=== PATIENT | female | born 1945 | race African-American/Black ===

== ENCOUNTER → 2017-05-19 15:48 | Outpatient (CLI) | payer MEDICARE, OTHER, SELFPAY ==
[2017-05-19 16:52] LABS: Thyroid Stim Hormone (TSH) 1.24 uIU/mL (0.358-3.74)
== END ==
PROVIDERS: Family Provider Family Medicine Geriatric Medicine; PCP Family Medicine Geriatric Medicine; Visit Provider Family Medicine Geriatric Medicine
DX: R53.83 Other fatigue (principal)
CPT/HCPCS: 36415; 84443

== ENCOUNTER → 2017-06-27 10:00 | Outpatient (CLI) | payer MEDICARE, OTHER, SELFPAY ==
--- NOTE | 2017-06-27 10:03 | VDLE_ITS ---
Reason For Study: Non-healing wound RIGHT LEFT CFV is compressible, spontaneous, phasic, CFV is compressible, spontaneous, phasic, competent and demonstrates normal competent, and demonstrates normal augmentation. augmentation. FV is compressible, spontaneous, phasic, FV is compressible, spontaneous, phasic, competent and demonstrates normal competent and demonstrates normal augmentation. augmentation. POP V is compressible, spontaneous, phasic, POP V is compressible, spontaneous, phasic, competent and demonstrates normal competent and demonstrates normal augmentation. augmentation. T/P Trunk is compressible. T/P Trunk is compressible. PTV is compressible. PTV is compressible. RT PerV is compressible. LT PerV is compressible. SFJ is competent SFJ is competent GSV is INCOMPETENT with reflux greater GSV is INCOMPETENT above knee with reflux than .5 sec and diameter of .32 x .30 cm greater than .5 sec and diameter of .32 SSV is INCOMPETENT with reflux greater x .33 cm than .5 sec and diameter of .24 x .22 cm. GSV diminutive below knee unable to assess Procedure SSV is competent. Exam performed in department. A preliminary report was called and/or faxed to [facility]. Interpretation Summary Deep veins of the lower extremities are bilaterally patent and compressible segmentally. There is no evidence of deep vein thrombosis on either side. Valvular competence appears intact within the proximal deep venous systems bilaterally. The greater saphenous veins appear bilaterally patent and compressible segmentally. Sapheno-femoral junctions are bilaterally competent . Segmental valvular incompetence is noted within the greater saphenous veins bilaterally. The left greater saphenous vein is diminutive below the knee. The right small saphenous vein is patent and incompetent. The left small saphenous vein is patent and competent. Ordering Physician: Anshul Bobo Performed By: Jeanette Pruett RVT
--- NOTE | 2017-06-28 08:37 | LEAS_ITS ---
Arterial Study - Arterial Study Arterial Study: This is a 71-year-old female with a history of hypertension. She presents with a chronic nonhealing wound of the right lower extremity. Suspecting the presence of atherosclerotic peripheral arterial occlusive disease, the patient was brought to the noninvasive vascular laboratory at this time for the purpose of bilateral noninvasive lower extremity arterial assessment. Doppler signal assessment was used to evaluate the pulses at ankle level bilaterally. The posterior tibial and dorsalis pedis pulses were triphasic bilaterally. Segmental limb pressures were obtained at ankle level bilaterally. The right ankle pressure, as determined by posterior tibial pulse, was measured at 201 mmHg. The right ankle pressure, as determined by dorsalis pedis pulse, was measured at 171 mmHg. The left ankle pressure, as determined by posterior tibial pulse, was measured at 187 mmHg. The left ankle pressure, as determined by dorsalis pedis pulse, was measured at 174 mmHg. Pulse-volume recordings were obtained bilaterally and segmentally. Waveform amplitudes appeared to be satisfactory at low thigh, calf, and ankle levels bilaterally, though diminished at digital levels bilaterally. Resting ankle-brachial indices were calculated bilaterally. The resting right ankle-brachial index was calculated to be 1.29. The resting left ankle- brachial index was calculated to be 1.20. Impression: Based upon the findings of this resting noninvasive lower extremity arterial study, there is no evidence of significant atherosclerotic peripheral arterial occlusive disease in the lower extremities bilaterally. Triphasic waveforms are noted at ankle level bilaterally. Resting ankle-brachial indices are bilaterally normal.
== END ==
PROVIDERS: Family Provider Family Medicine Geriatric Medicine; PCP Family Medicine Geriatric Medicine; Visit Provider Nurse Practitioner Family
DX: R09.89 Other specified symptoms and signs involving the circulatory and respiratory systems (principal); I87.311 Chronic venous hypertension (idiopathic) with ulcer of right lower extremity; L97.919 Non-pressure chronic ulcer of unspecified part of right lower leg with unspecified severity; R60.9 Edema, unspecified
CPT/HCPCS: 93923; 93970

== ENCOUNTER 2017-07-17 13:00 | Outpatient (RCR) | payer MEDICARE, OTHER, SELFPAY ==
[2017-06-26 13:49] VITALS: BP 173/77; PULSE 70; RESP 16; TEMP 36.5; BMI 41.1
--- NOTE | 2017-06-26 14:50 | PCM.WC.HP ---
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 Status: Acute Current Visit: Yes Code(s): L97.912 - Non-pressure chronic ulcer of unspecified part of right lower leg with fat layer exposed Comment: Right lateral ankle (2) Bilateral lower extremity edema Status: Acute Current Visit: Yes Code(s): R60.0 - Localized edema (3) Decreased pedal pulses Status: Acute Current Visit: Yes Code(s): R09.89 - Other specified symptoms and signs involving the circulatory and respiratory systems (4) Hypertension Status: Chronic Current Visit: No Qualifiers: Code(s): I10 - Essential (primary) hypertension (5) Obesity, Class II, BMI 35-39.9 Status: Chronic Current Visit: Yes Code(s): E66.9 - Obesity, unspecified History of Present Illness Date of Service: 06/26/17 Chief Complaint: Nonhealing wound right ankle History of Wound: This is a 71-year-old -[place] female with a past medical history of hypertension, palpitations, obesity who presents to the wound healing center today with complaint of a nonhealing ulcer on right lateral ankle ?2 months. The patient presented to [facility] emergency department on 05/10/2017 with complaint of cutting her right lateral ankle open after hitting it on the edge of a refrigerator door. The patient was placed on Bactrim and completed the duration of antibiotics and then follow-up with her PCP who had placed her on another antibiotic as well. Patient is unsure which antibiotic that was. The patient states that the nonhealing wound has been tender and that there is a small amount of light yellow drainage from it. She states that the main stay of treatment she has been doing so far is covering it with a Band-Aid. She has not been using any compression. She denies any signs of systemic infection specifically any redness, warmth, or increase in pain. The patient otherwise denies any fever, chills, nausea, vomiting, shortness of breath, chest pain or pressure, palpitations, orthopnea, lower extremity edema, syncope or presyncopal episodes. Past Medical History Past Medical History: Chronic Problems (Last Reviewed 04/11/17 @ 10:50 by Marino Givens MD) Edema (Chronic) Palpitations (Chronic) Nonrheumatic mitral (valve) insufficiency (Chronic) Nonrheumatic tricuspid (valve) insufficiency (Chronic) Osteoarthritis (Chronic) Hypertension (Chronic) Obesity, Class II, BMI 35-39.9 (Chronic) Surgical History: appendectomy, cholecystectomy, herniorrhaphy - 1982, rotator cuff repair - 2008 Allergies/Adverse Reactions: Allergies milk Allergy (Unknown, Unverified 05/10/17 22:12) unknown lisinopril Adverse Reaction (Intermediate, Verified 05/10/17 22:12) cough ibuprofen [From Motrin] Adverse Reaction (Mild, Verified 05/10/17 22:12) Other FEET SWELLING naproxen sodium [From Aleve] Adverse Reaction (Mild, Verified 05/10/17 22:12) Swelling SWELLS FEET UP Home Medications: Ambulatory Orders Medication Instructions Recorded Hydrochlorothiazide 25 mg PO DAILY 10/09/13 Irbesartan [Avapro] 300 mg PO DAILY 10/09/13 Cyanocobalamin [Vitamin B12] 1,000 mcg IM QWEEK 06/23/14 Furosemide [Lasix] 40 mg PO QODAY 06/23/14 Acetaminophen [Tylenol Tablet] 650 mg PO Q4H PRN PRN #0 tablet 07/19/14 Aspirin [Aspirin EC] 81 mg PO DAILY 04/16/16 cholecalciferol (vitamin D3) 5,000 5,000 unit PO QDAY 04/10/17 unit capsule dexlansoprazole 30 mg 30 mg PO QDAY 04/10/17 capsule,biphase delayed release linaclotide 145 mcg capsule 145 mcg PO PRN PRN 04/10/17 magnesium oxide,aspartate,citrate 400 mg PO QDAY ea 04/10/17 400 mg capsule potassium chloride ER 8 mEq 8 meq PO BID 04/10/17 tablet,extended release atorvastatin 10 mg tablet 10 mg PO DAILY #90 tab 04/11/17 vitamin E mixed 1,000 unit capsule 1,000 unit PO .OD ea 04/11/17 Hydrochlorothiazide [Hctz] 25 mg PO DAILY 06/26/17 - Family History Paternal Family History: Family History (Last Reviewed 04/11/17 @ 10:50 by Marino Givens MD) Mother Cancer Hypertension No pertinent history Maternal Family History: Family History (Last Reviewed 04/11/17 @ 10:50 by Marino Givens MD) Mother Cancer Hypertension No pertinent history Lives: Spouse/ Significant Other Smoking Status: Never smoker Tobacco Use: Non-smoker Alcohol: None Review of Systems Constitutional: Denies: Chills, Fever, Weight Change Eyes: Denies: Pain, Vision Change HEENT: Denies: Difficulty Hearing, Difficulty Swallowing, Sinus Congestion Cardiovascular: Denies: Chest Pain, Palpitations Respiratory: Denies: Cough, Shortness of Breath Gastrointestinal: Denies: Diarrhea, Nausea, Vomiting Genitourinary: Denies: Dysuria, Hematuria Skin: Reports: Wounds - See HPI, wound right lower extremity Endocrine: Denies: Heat/ Cold Intolerance, Polydipsia, Polyuria Hematologic/ Lymphatic: Denies: Easy Bruising, Easy Bleeding - Physical Exam Vital Signs Temp Pulse Resp BP 97.7 F L 70 16 173/77 H 06/26/17 13:49 06/26/17 13:49 06/26/17 13:49 06/26/17 13:49 General: Alert, Oriented x3, Cooperative, No apparent distress HEENT: PERRLA, EOMI Oral: Moist Mucosa Neck: Supple, No JVD, Negative Carotid Bruits Lungs: Clear to auscultation Cardiovascular: Regular rate, Regular Rhythm Abdomen: Soft, Non Tender Extremities: No clubbing, No cyanosis, Diminished Peripheral Pulses, Edema - Bilateral lower extremity edema +1 nonpitting, Tenderness - Tenderness around lower extremity ulcer Skin: Ulcer/ Wound - Nonhealing lower extremity ulcer present right lateral ankle, covered with moderate amount of slough and devitalized tissue. Wound Measurements and Assessment WC - Nurse 1 - General Ulcer Measurement Start: 06/26/17 13:48 Freq: Status: Active Protocol: Activity Type Activity Date Activity User E-Sign Co-Sign Detail Recorded Client Recorded Date Recorded By Document 06/26/17 13:49 MW [id number] 06/26/17 13:58 MW 06/26/17 13:49 Wound Center Nurse 1 [Ulcer Assessment] #1 RIGHT LATERAL LE -Combined with other wound No -Current Size (cm) - Length 0.2 -Current Size (cm) - Width 0.2 -Current Size (cm) - Depth 0.1 -Total Square Cm 0.04 -Date of Last Picture (Recall this 06/26/17 field) -Photo Taken Yes -Epithelialization None Present -Tunneling No -Undermining/Tunneling No -Circular Undermining No -Exudate Amt None Present (0 %) -Wound Margin Flat & Intact -Granulation Amt Small (1-33%) -Granulation Quality Pale -Slough/Fibrin Yes -Necrosis Amt Medium (34-66%) -Necrotic Tissue Type Adherent Slough -Structure Exposed N/A -Texture (Gladys-wound Skin Appearance) Assessed Localized Edema -Moisture (Gladys-wound Skin Appearance Assessed ) Dry/Scaly -Color (Gladys-wound Skin Appearance) Assessed Hemosiderin Staining -Temperature (Gladys-wound Skin No Abnormality Appearance) (Pt Warm) -Tenderness on Palpation (Gladys-wound Yes Skin Appearance) -Ulcer Cleansing Rinsed/ Irrigated with Saline -Foul Odor after Cleansing No -Anesthetic Used 4% Lidocaine Solution [Edema Assessment] -Lower Limb Edema Present Yes -Right Calf (cm) 39.5 -Right Ankle (cm) 21.4 -Left Calf (cm) 38.0 -Left Ankle (cm) 20.7 WC - Nurse 2 - General Ulcer CM Notes Start: 06/26/17 13:48 Freq: Status: Active Protocol: Activity Type Activity Date Activity User E-Sign Co-Sign Detail Recorded Client Recorded Date Recorded By Document 06/26/17 14:56 DV [id number] 06/26/17 15:02 DV 06/26/17 14:56 Wound Center Nurse 2 [Procedure/Treatment] #1 RIGHT LATERAL LE -Time 15:00 -Correct Patient Yes -Correct Side, Site, Position Yes -Correct Procedure Yes -Procedure Performed Yes -Type of Procedure Debridement -Clinical Debridement Subcutaneous -Post Debridement Size (cm) - Length 0.5 -Post Debridement Size (cm) - Width 1.1 -Post Debridement Size (cm) - Depth 0.3 -Total Square Cm 0.55 -Wound/Ulcer Outcome Not Healed -Ulcer Cleansing Rinsed/ Irrigated with Saline -Foul Odor after Cleansing No -Bioengineered Tissue No -Bleeding Controlled with Pressure -Treatment Response Procedure Tolerated Well [See Physician Procedure note for Specifics] Pain Scale: 0-10 Numeric [Pain] -Is Patient Pain Free? Yes Musculoskeletal: No Tenderness to Palpation of Joints or Extremities Lymphatic: No Cervical, Supraclavicular, or Inguinal Adenopathy Neurological: Cranial nerves II-XII grossly intact Psych/Mental Status: Normal Affect, Appropriate, Alert and oriented to time, place, person, mood and affect Debridement Note Post-Debridement Measurements/Treatment WC - Nurse 2 - General Ulcer CM Notes Start: 06/26/17 13:48 Freq: Status: Active Protocol: Activity Type Activity Date Activity User E-Sign Co-Sign Detail Recorded Client Recorded Date Recorded By Document 06/26/17 14:56 DV [id number] 06/26/17 15:02 DV 06/26/17 14:56 Wound Center Nurse 2 #1 RIGHT LATERAL LE -Time 15:00 -Correct Patient Yes -Correct Side, Site, Position Yes -Correct Procedure Yes -Procedure Performed Yes -Type of Procedure Debridement -Clinical Debridement Subcutaneous -Post Debridement Size (cm) - Length 0.5 -Post Debridement Size (cm) - Width 1.1 -Post Debridement Size (cm) - Depth 0.3 -Total Square Cm 0.55 -Wound/Ulcer Outcome Not Healed -Ulcer Cleansing Rinsed/ Irrigated with Saline -Foul Odor after Cleansing No -Bioengineered Tissue No -Bleeding Controlled with Pressure -Treatment Response Procedure Tolerated Well Pain Scale: 0-10 Numeric Is Patient Pain Free? Yes Wound debrided: Right lower extremity lateral ankle ulcer Laterality: Right Anesthesia Used: 5% Lidocaine Gel Depth: Down to and including healthy tissue, in the subcutaneous layer Percentage of wound debrided: 100 Instrument Used: 3mm curette Tissue Removed: Slough and devitalized tissue Severity: Fat Layer Exposed Amount of bleeding with debridement: None Patient did not tolerate procedure well Patient was unable to tolerate an effective debridement today due to her pain level and tenderness around the site Assessment/Plan Active Problems (Last Reviewed 04/11/17 @ 10:50 by Marino Givens MD) Bilateral lower extremity edema (Acute) 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 (Acute) Right lateral ankle Decreased pedal pulses (Acute) Obesity, Class II, BMI 35-39.9 (Chronic) Assessment: Nonhealing ulcer right lateral ankle Plan: The patient was seen and examined at the wound center today and was updated on the plan of care. A subcutaneous debridement was performed today. The patient tolerated the procedure fair. The patients wound care will consist of: Applying Santyl daily and covering with gauze, Tubigrip for light compression. Wound cultures were collected. Baseline bloodwork ordered. Vascular studies ordered. Patient educated on the importance of diet on wound healing and instructed to increase protein and vitamin C intake. Patient verbalized understanding. Patient will follow up at wound healing center in one week or sooner if needed. Patient was specifically educated on signs of systemic infection and cellulitis and instructed to seek emergent medical attention if this occurs. This note was generated with [employer] dictation software. It may contain incorrect words, spelling, and punctuation that were not noted in checking the note before signing. 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 The patient states that it is elevated due to being anxious about today's office visit. Code Visit Office Visits / Consults: [id number] OV L4 Est [id number]: [id number] Alethea subq tissue 20 sq cm/<
[2017-06-26 18:07] LABS: Absolute Lymphocyte Count 1.81 X10^3/ul (0.83-4.51); Absolute Neutrophil Count 2.8 X10^3/uL (2.0-7.7); Basophil# 0.03 X10^3/uL; Basophil% 0.6 % (0-1); Eosinophil# 0.13 X10^3/uL; Eosinophils% 2.5 % (0-5); Hematocrit 40.3 % (37-47); Hemoglobin 12.9 g/dl (12.0-15.0); Lymphocyte # 1.81 X10^3/ul (4.0); Lymphocyte % 35.3 % (19-41); Mean Corpuscular Hgb 29.6 pg (27.0-32.0); Mean Corpuscular Volume 92.4 fL (81-99); Mean Platelet Vol. 10.7 fl (6.2-12.0); Monocyte# 0.38 X10^3/uL; Monocyte% 7.4 % (0-10); Neutrophil # 2.78 X10^3/uL (2.7-7.7); Neutrophil % 54.2 % (47-70); Platelet Count 197 K/mm3 (150-450); RBC Distribution Width CV 14.9 % (11.6-14.6); RBC Distribution Width SD 50.8 fl (35.1-43.9); Red Blood Count 4.36 M/mm3 (4.2-5.4); White Blood Count 5.1 K/mm3 (4.4-11.0)
[2017-06-26 18:08] LABS: POSITIVE COUNT NO; POSITIVE DIFFERENTIAL NO; POSITIVE MORPHOLOGY NO
[2017-06-26 18:20] LABS: Erythrocyte Sedimentation Rate 45 mm/hr (0-30)
[2017-06-26 18:33] LABS: ALB/GLOB Ratio 0.8 RATIO (0.9-2.4); AST(SGOT) 20 U/L (15-37); Alanine Aminotransfer ALT/SGPT 34 U/L (13-56); Albumin, Serum 3.6 g/dL (3.2-5.0); Alkaline Phosphatase 89 U/L (45-117); Anion Gap 8 (5-15); BUN 16 mg/dL (7-18); Calcium,Total 9.5 mg/dL (8.5-10.1); Chloride 106 mmol/L (98-107); Creatinine, Serum 0.94 mg/dL (0.55-1.02); EST Glomerular Filtration Rate 62 mL/min (>60); Est Glom Filt Rate - Afr Amer 75 mL/min (>60); Estimated Creatinine Clearance 43.42 ml/min; Globulin 4.3 g/dL (2.2-4.2); Glucose 63 mg/dL (74-106); Potassium 3.6 mmol/L (3.5-5.1); Prealbumin 28.9 mg/dL (20.0-40.0); Protein, Total 7.9 g/dL (6.4-8.2); Sodium Level 143 mmol/L (136-145)
--- NOTE | 2017-06-27 15:00 | HP.PCM_ITS ---
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 Status: Acute Current Visit: Yes Code(s): L97.912 - Non-pressure chronic ulcer of unspecified part of right lower leg with fat layer exposed Comment: Right lateral ankle (2) Bilateral lower extremity edema Status: Acute Current Visit: Yes Code(s): R60.0 - Localized edema (3) Decreased pedal pulses Status: Acute Current Visit: Yes Code(s): R09.89 - Other specified symptoms and signs involving the circulatory and respiratory systems (4) Hypertension Status: Chronic Current Visit: No Qualifiers: Code(s): I10 - Essential (primary) hypertension (5) Obesity, Class II, BMI 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 The patient presented to [facility] emergency department on 05/10/2017 with complaint of cutting her right lateral ankle open after hitting it on the edge of a refrigerator door. The patient was placed on Bactrim and completed the duration of antibiotics and then follow- up with her PCP who had placed her on another antibiotic as well. Patient is unsure which antibiotic that was. The patient states that the nonhealing wound has been tender and that there is a small amount of light yellow drainage from it. She states that the main stay of treatment she has been doing so far is covering it with a Band-Aid. She has not been using any compression. She denies any signs of systemic infection specifically any redness, warmth, or increase in pain. The patient otherwise denies any fever, chills, nausea, vomiting, shortness of breath, chest pain or pressure, palpitations, orthopnea, lower extremity edema, syncope or presyncopal episodes. Past Medical History Past Medical History: Chronic Problems (Last Reviewed 04/11/17 @ 10:50 by Marino Givens MD) Edema (Chronic) Palpitations (Chronic) Nonrheumatic mitral (valve) insufficiency (Chronic) Nonrheumatic tricuspid (valve) insufficiency (Chronic) Osteoarthritis (Chronic) Hypertension (Chronic) Obesity, Class II, BMI 35-39.9 (Chronic) Surgical History: appendectomy, cholecystectomy, herniorrhaphy - 1982, rotator cuff repair - 2008 Allergies/Adverse Reactions: Allergies milk Allergy (Unknown, Unverified 05/10/17 22:12) unknown lisinopril Adverse Reaction (Intermediate, Verified 05/10/17 22:12) cough ibuprofen [From Motrin] Adverse Reaction (Mild, Verified 05/10/17 22:12) Other FEET SWELLING naproxen sodium [From Aleve] Adverse Reaction (Mild, Verified 05/10/17 22:12) Swelling SWELLS FEET UP Home Medications: Ambulatory Orders Medication Instructions Recorded Hydrochlorothiazide 25 mg PO DAILY 10/09/13 Irbesartan [Avapro] 300 mg PO DAILY 10/09/13 Cyanocobalamin [Vitamin B12] 1,000 mcg IM QWEEK 06/23/14 Furosemide [Lasix] 40 mg PO QODAY 06/23/14 Acetaminophen [Tylenol Tablet] 650 mg PO Q4H PRN PRN #0 tablet 07/19/14 Aspirin [Aspirin EC] 81 mg PO DAILY 04/16/16 cholecalciferol (vitamin D3) 5,000 5,000 unit PO QDAY 04/10/17 unit capsule dexlansoprazole 30 mg 30 mg PO QDAY 04/10/17 capsule,biphase delayed release linaclotide 145 mcg capsule 145 mcg PO PRN PRN 04/10/17 magnesium oxide,aspartate,citrate 400 mg PO QDAY ea 04/10/17 400 mg capsule potassium chloride ER 8 mEq 8 meq PO BID 04/10/17 tablet,extended release atorvastatin 10 mg tablet 10 mg PO DAILY #90 tab 04/11/17 vitamin E mixed 1,000 unit capsule 1,000 unit PO .OD ea 04/11/17 Hydrochlorothiazide [Hctz] 25 mg PO DAILY 06/26/17 - Family History Paternal Family History: Family History (Last Reviewed 04/11/17 @ 10:50 by Marino Givens MD) Mother Cancer Hypertension No pertinent history Maternal Family History: Family History (Last Reviewed 04/11/17 @ 10:50 by Marino Givens MD) Mother Cancer Hypertension No pertinent history Lives: Spouse/ Significant Other Smoking Status: Never smoker Tobacco Use: Non-smoker Alcohol: None Review of Systems Constitutional: Denies: Chills, Fever, Weight Change Eyes: Denies: Pain, Vision Change HEENT: Denies: Difficulty Hearing, Difficulty Swallowing, Sinus Congestion Cardiovascular: Denies: Chest Pain, Palpitations Respiratory: Denies: Cough, Shortness of Breath Gastrointestinal: Denies: Diarrhea, Nausea, Vomiting Genitourinary: Denies: Dysuria, Hematuria Skin: Reports: Wounds - See HPI, wound right lower extremity Endocrine: Denies: Heat/ Cold Intolerance, Polydipsia, Polyuria Hematologic/ Lymphatic: Denies: Easy Bruising, Easy Bleeding - Physical Exam Vital Signs Temp Pulse Resp BP 97.7 F L 70 16 173/77 H 06/26/17 13:49 06/26/17 13:49 06/26/17 13:49 06/26/17 13:49 General: Alert, Oriented x3, Cooperative, No apparent distress HEENT: PERRLA, EOMI Oral: Moist Mucosa Neck: Supple, No JVD, Negative Carotid Bruits Lungs: Clear to auscultation Cardiovascular: Regular rate, Regular Rhythm Abdomen: Soft, Non Tender Extremities: No clubbing, No cyanosis, Diminished Peripheral Pulses, Edema - Bilateral lower extremity edema +1 nonpitting, Tenderness - Tenderness around lower extremity ulcer Skin: Ulcer/ Wound - Nonhealing lower extremity ulcer present right lateral ankle, covered with moderate amount of slough and devitalized tissue. Wound Measurements and Assessment WC - Nurse 1 - General Ulcer Measurement Start: 06/26/17 13:48 Freq: Status: Active Protocol: Activity Type Activity Date Activity User E-Sign Co-Sign Detail Recorded Client Recorded Date Recorded By Document 06/26/17 13:49 MW [id number] 06/26/17 13:58 MW 06/26/17 13:49 Wound Center Nurse 1 [Ulcer Assessment] #1 RIGHT LATERAL LE -Combined with other wound No -Current Size (cm) - Length 0.2 -Current Size (cm) - Width 0.2 -Current Size (cm) - Depth 0.1 -Total Square Cm 0.04 -Date of Last Picture (Recall this 06/26/17 field) -Photo Taken Yes -Epithelialization None Present -Tunneling No -Undermining/Tunneling No -Circular Undermining No -Exudate Amt None Present (0 %) -Wound Margin Flat & Intact -Granulation Amt Small (1-33%) -Granulation Quality Pale -Slough/Fibrin Yes -Necrosis Amt Medium (34-66%) -Necrotic Tissue Type Adherent Slough -Structure Exposed N/A -Texture (Gladys-wound Skin Appearance) Assessed Localized Edema -Moisture (Gladys-wound Skin Appearance Assessed ) Dry/Scaly -Color (Gladys-wound Skin Appearance) Assessed Hemosiderin Staining -Temperature (Gladys-wound Skin No Abnormality Appearance) (Pt Warm) -Tenderness on Palpation (Gladys-wound Yes Skin Appearance) -Ulcer Cleansing Rinsed/ Irrigated with Saline -Foul Odor after Cleansing No -Anesthetic Used 4% Lidocaine Solution [Edema Assessment] -Lower Limb Edema Present Yes -Right Calf (cm) 39.5 -Right Ankle (cm) 21.4 -Left Calf (cm) 38.0 -Left Ankle (cm) 20.7 WC - Nurse 2 - General Ulcer CM Notes Start: 06/26/17 13:48 Freq: Status: Active Protocol: Activity Type Activity Date Activity User E-Sign Co-Sign Detail Recorded Client Recorded Date Recorded By Document 06/26/17 14:56 DV [id number] 06/26/17 15:02 DV 06/26/17 14:56 Wound Center Nurse 2 [Procedure/Treatment] #1 RIGHT LATERAL LE -Time 15:00 -Correct Patient Yes -Correct Side, Site, Position Yes -Correct Procedure Yes -Procedure Performed Yes -Type of Procedure Debridement -Clinical Debridement Subcutaneous -Post Debridement Size (cm) - Length 0.5 -Post Debridement Size (cm) - Width 1.1 -Post Debridement Size (cm) - Depth 0.3 -Total Square Cm 0.55 -Wound/Ulcer Outcome Not Healed -Ulcer Cleansing Rinsed/ Irrigated with Saline -Foul Odor after Cleansing No -Bioengineered Tissue No -Bleeding Controlled with Pressure -Treatment Response Procedure Tolerated Well [See Physician Procedure note for Specifics] Pain Scale: 0-10 Numeric [Pain] -Is Patient Pain Free? Yes Musculoskeletal: No Tenderness to Palpation of Joints or Extremities Lymphatic: No Cervical, Supraclavicular, or Inguinal Adenopathy Neurological: Cranial nerves II-XII grossly intact Psych/Mental Status: Normal Affect, Appropriate, Alert and oriented to time, place, person, mood and affect Debridement Note Post-Debridement Measurements/Treatment WC - Nurse 2 - General Ulcer CM Notes Start: 06/26/17 13:48 Freq: Status: Active Protocol: Activity Type Activity Date Activity User E-Sign Co-Sign Detail Recorded Client Recorded Date Recorded By Document 06/26/17 14:56 DV [id number] 06/26/17 15:02 DV 06/26/17 14:56 Wound Center Nurse 2 #1 RIGHT LATERAL LE -Time 15:00 -Correct Patient Yes -Correct Side, Site, Position Yes -Correct Procedure Yes -Procedure Performed Yes -Type of Procedure Debridement -Clinical Debridement Subcutaneous -Post Debridement Size (cm) - Length 0.5 -Post Debridement Size (cm) - Width 1.1 -Post Debridement Size (cm) - Depth 0.3 -Total Square Cm 0.55 -Wound/Ulcer Outcome Not Healed -Ulcer Cleansing Rinsed/ Irrigated with Saline -Foul Odor after Cleansing No -Bioengineered Tissue No -Bleeding Controlled with Pressure -Treatment Response Procedure Tolerated Well Pain Scale: 0-10 Numeric Is Patient Pain Free? Yes Wound debrided: Right lower extremity lateral ankle ulcer Laterality: Right Anesthesia Used: 5% Lidocaine Gel Depth: Down to and including healthy tissue, in the subcutaneous layer Percentage of wound debrided: 100 Instrument Used: 3mm curette Tissue Removed: Slough and devitalized tissue Severity: Fat Layer Exposed Amount of bleeding with debridement: None Patient did not tolerate procedure well Patient was unable to tolerate an effective debridement today due to her pain level and tenderness around the site Assessment/Plan Active Problems (Last Reviewed 04/11/17 @ 10:50 by Marino Givens MD) Bilateral lower extremity edema (Acute) 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 (Acute) Right lateral ankle Decreased pedal pulses (Acute) Obesity, Class II, BMI 35-39.9 (Chronic) Assessment: Nonhealing ulcer right lateral ankle Plan: The patient was seen and examined at the wound center today and was updated on the plan of care. A subcutaneous debridement was performed today. The patient tolerated the procedure fair. The patients wound care will consist of: Applying Santyl daily and covering with gauze, Tubigrip for light compression. Wound cultures were collected. Baseline bloodwork ordered. Vascular studies ordered. Patient educated on the importance of diet on wound healing and instructed to increase protein and vitamin C intake. Patient verbalized understanding. Patient will follow up at wound healing center in one week or sooner if needed. Patient was specifically educated on signs of systemic infection and cellulitis and instructed to seek emergent medical attention if this occurs. This note was generated with [employer] dictation software. It may contain incorrect words, spelling, and punctuation that were not noted in checking the note before signing. The patient's blood pressure was significantly elevated in the office, instructed to follow-up with her liberal arts dean or PCP to manage this. The patient states that it is elevated due to being anxious about today's office visit. Code Visit Office Visits / Consults: 33134 OV L4 Est 111xxx-113xx: [id number] Alethea subq tissue 20 sq cm/<
[2017-07-03 13:57] VITALS: BP 119/93; PULSE 75; RESP 16; TEMP 37; BMI 41.1
--- NOTE | 2017-07-03 17:13 | PCM.WC.PN ---
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 Status: Acute Code(s): L97.912 - Non-pressure chronic ulcer of unspecified part of right lower leg with fat layer exposed Comment: Right lateral ankle (2) Bilateral lower extremity edema Status: Acute Code(s): R60.0 - Localized edema (3) Decreased pedal pulses Status: Acute Code(s): R09.89 - Other specified symptoms and signs involving the circulatory and respiratory systems (4) Hypertension Status: Chronic Qualifiers: Code(s): I10 - Essential (primary) hypertension (5) Obesity, Class II, BMI 35-39.9 Status: Chronic Code(s): E66.9 - Obesity, unspecified Type of Wound Date of Service: 07/03/17 Chief Complaint: Nonhealing wound right ankle History of Wound: This is a 71-year-old -Surinames[place] female with a past medical history of hypertension, palpitations, obesity who presents to the wound healing center today with complaint of a nonhealing ulcer on right lateral ankle ?2 months. The patient presented to [facility] emergency department on 05/10/2017 with complaint of cutting her right lateral ankle open after hitting it on the edge of a refrigerator door. The patient was placed on Bactrim and completed the duration of antibiotics and then follow-up with her PCP who had placed her on another antibiotic as well. Patient is unsure which antibiotic that was. The patient states that the nonhealing wound has been tender and that there is a small amount of light yellow drainage from it. She states that the main stay of treatment she has been doing so far is covering it with a Band-Aid. She has not been using any compression. She denies any signs of systemic infection specifically any redness, warmth, or increase in pain. The patient otherwise denies any fever, chills, nausea, vomiting, shortness of breath, chest pain or pressure, palpitations, orthopnea, lower extremity edema, syncope or presyncopal episodes. Progress of Wound: Wound stable and improving, no signs of systemic infection such as increasing pain, drainage, redness, or increase in edema - Physical Exam Vital Signs Temp Pulse Resp BP 98.6 F 75 16 119/93 H 07/03/17 13:57 07/03/17 13:57 07/03/17 13:57 07/03/17 13:57 General: Alert, Oriented x3, Cooperative, No apparent distress HEENT: Atraumatic Cardiovascular: Regular rate Extremities: Diminished Peripheral Pulses, Edema - Generalized lower extremity edema Skin: Ulcer/ Wound - Ulcer present right lateral lower extremity lateral ankle with small amount of slough present, periwound bed slightly inflamed Neurological: Neuro grossly intact Psych/Mental Status: Normal Affect, Appropriate, Alert and oriented to time, place, person, mood and affect Debridement Note Post-Debridement Measurements/Treatment WC - Nurse 2 - General Ulcer CM Notes Start: 06/26/17 13:48 Freq: Status: Active Protocol: Activity Type Activity Date Activity User E-Sign Co-Sign Detail Recorded Client Recorded Date Recorded By Document 06/26/17 14:56 DV [id number] 06/26/17 15:02 DV Document 07/03/17 14:40 DV [id number] 07/03/17 14:45 DV 06/26/17 07/03/17 14:56 14:40 Wound Center Nurse 2 #1 RIGHT LATERAL LE -Time 15:00 14:40 -Correct Patient Yes Yes -Correct Side, Site, Position Yes Yes -Correct Procedure Yes Yes -Procedure Performed Yes Yes -Type of Procedure Debridement Debridement -Clinical Debridement Subcutaneous Subcutaneous -Post Debridement Size (cm) - Length 0.5 0.5 -Post Debridement Size (cm) - Width 1.1 1.2 -Post Debridement Size (cm) - Depth 0.3 0.3 -Total Square Cm 0.55 0.60 -Wound/Ulcer Outcome Not Healed Not Healed -Ulcer Cleansing Rinsed/ Rinsed/ Irrigated with Irrigated with Saline Saline -Foul Odor after Cleansing No No -Bioengineered Tissue No No -Bleeding Controlled with Pressure Pressure -Treatment Response Procedure Procedure Tolerated Well Tolerated Well Pain Scale: 0-10 Numeric Is Patient Pain Free? Yes Yes Wound debrided: Right lateral lower extremity Laterality: Right Type of Debridement: Excisional debridement Anesthesia Used: 4% Lidocaine Solution Depth: in the subcutaneous layer Percentage of wound debrided: 100 Instrument Used: 3mm curette Tissue Removed: Slough and fibrous tissue Severity: Fat Layer Exposed Amount of bleeding with debridement: Mild Bleeding Controlled with: Pressure Patient tolerated procedure well Assessment/Plan Assessment: Nonhealing ulcer right lateral ankle Plan: The patient was seen and examined at the wound center today and was updated on the plan of care. A subcutaneous debridement was performed today. The patient tolerated the procedure well. The patients wound care will consist of: Applying hydrogel and Saray daily and covering with gauze, Tubigrip for light compression. Wound cultures were collected previously and demonstrated rare Pseudomonas and 1+ E. coli, Cipro 500 mg twice daily for 10 days was ordered as both were sensitive to this, patient educated on how and when to take medication and potential side effects. Baseline bloodwork reviewed with patient and was within normal limits. Vascular studies demonstrated right EMILI 1.29 and left EMILI 1.20 and venous insufficiency as well. Patient educated on the importance of diet on wound healing and instructed to increase protein and vitamin C intake. Patient verbalized understanding. Patient will follow up at wound healing center in one week or sooner if needed. Patient was specifically educated on signs of systemic infection and cellulitis and instructed to seek emergent medical attention if this occurs. This note was generated with [employer] dictation software. It may contain incorrect words, spelling, and punctuation that were not noted in checking the note before signing. The patient's blood pressure was significantly elevated in the office, instructed to follow-up with her senior ui web developer or PCP to manage this. The patient states that it is elevated due to being anxious about today's office visit. Code Visit 111xxx-113xx: 29506 Alethea subq tissue 20 sq cm/<
--- NOTE | 2017-07-08 12:23 | PN.PCM_ITS ---
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 Status: Acute Code(s): L97.912 - Non-pressure chronic ulcer of unspecified part of right lower leg with fat layer exposed Comment: Right lateral ankle (2) Bilateral lower extremity edema Status: Acute Code(s): R60.0 - Localized edema (3) Decreased pedal pulses Status: Acute Code(s): R09.89 - Other specified symptoms and signs involving the circulatory and respiratory systems (4) Hypertension Status: Chronic Qualifiers: Code(s): I10 - Essential (primary) hypertension (5) Obesity, Class II, BMI 35-39.9 Status: Chronic Code(s): E66.9 - Obesity, unspecified Type of Wound Date of Service: 07/03/17 Chief Complaint: Nonhealing wound right ankle History of Wound: This is a 71-year-old -[place] female with a past medical history of hypertension, palpitations, obesity who presents to the wound healing center today with complaint of a nonhealing ulcer on right lateral ankle ?2 months. The patient presented to [facility] emergency department on 05/10/2017 with complaint of cutting her right lateral ankle open after hitting it on the edge of a refrigerator door. The patient was placed on Bactrim and completed the duration of antibiotics and then follow- up with her PCP who had placed her on another antibiotic as well. Patient is unsure which antibiotic that was. The patient states that the nonhealing wound has been tender and that there is a small amount of light yellow drainage from it. She states that the main stay of treatment she has been doing so far is covering it with a Band-Aid. She has not been using any compression. She denies any signs of systemic infection specifically any redness, warmth, or increase in pain. The patient otherwise denies any fever, chills, nausea, vomiting, shortness of breath, chest pain or pressure, palpitations, orthopnea, lower extremity edema, syncope or presyncopal episodes. Progress of Wound: Wound stable and improving, no signs of systemic infection such as increasing pain, drainage, redness, or increase in edema - Physical Exam Vital Signs Temp Pulse Resp BP 98.6 F 75 16 119/93 H 07/03/17 13:57 07/03/17 13:57 07/03/17 13:57 07/03/17 13:57 General: Alert, Oriented x3, Cooperative, No apparent distress HEENT: Atraumatic Cardiovascular: Regular rate Extremities: Diminished Peripheral Pulses, Edema - Generalized lower extremity edema Skin: Ulcer/ Wound - Ulcer present right lateral lower extremity lateral ankle with small amount of slough present, periwound bed slightly inflamed Neurological: Neuro grossly intact Psych/Mental Status: Normal Affect, Appropriate, Alert and oriented to time, place, person, mood and affect Debridement Note Post-Debridement Measurements/Treatment WC - Nurse 2 - General Ulcer CM Notes Start: 06/26/17 13:48 Freq: Status: Active Protocol: Activity Type Activity Date Activity User E-Sign Co-Sign Detail Recorded Client Recorded Date Recorded By Document 06/26/17 14:56 DV [id number] 06/26/17 15:02 DV Document 07/03/17 14:40 DV [id number] 07/03/17 14:45 DV 06/26/17 07/03/17 14:56 14:40 Wound Center Nurse 2 #1 RIGHT LATERAL LE -Time 15:00 14:40 -Correct Patient Yes Yes -Correct Side, Site, Position Yes Yes -Correct Procedure Yes Yes -Procedure Performed Yes Yes -Type of Procedure Debridement Debridement -Clinical Debridement Subcutaneous Subcutaneous -Post Debridement Size (cm) - Length 0.5 0.5 -Post Debridement Size (cm) - Width 1.1 1.2 -Post Debridement Size (cm) - Depth 0.3 0.3 -Total Square Cm 0.55 0.60 -Wound/Ulcer Outcome Not Healed Not Healed -Ulcer Cleansing Rinsed/ Rinsed/ Irrigated with Irrigated with Saline Saline -Foul Odor after Cleansing No No -Bioengineered Tissue No No -Bleeding Controlled with Pressure Pressure -Treatment Response Procedure Procedure Tolerated Well Tolerated Well Pain Scale: 0-10 Numeric Is Patient Pain Free? Yes Yes Wound debrided: Right lateral lower extremity Laterality: Right Type of Debridement: Excisional debridement Anesthesia Used: 4% Lidocaine Solution Depth: in the subcutaneous layer Percentage of wound debrided: 100 Instrument Used: 3mm curette Tissue Removed: Slough and fibrous tissue Severity: Fat Layer Exposed Amount of bleeding with debridement: Mild Bleeding Controlled with: Pressure Patient tolerated procedure well Assessment/Plan Assessment: Nonhealing ulcer right lateral ankle Plan: The patient was seen and examined at the wound center today and was updated on the plan of care. A subcutaneous debridement was performed today. The patient tolerated the procedure well. The patients wound care will consist of: Applying hydrogel and Saray daily and covering with gauze, Tubigrip for light compression. Wound cultures were collected previously and demonstrated rare Pseudomonas and 1+ E. coli, Cipro 500 mg twice daily for 10 days was ordered as both were sensitive to this, patient educated on how and when to take medication and potential side effects. Baseline bloodwork reviewed with patient and was within normal limits. Vascular studies demonstrated right EMILI 1.29 and left EMILI 1.20 and venous insufficiency as well. Patient educated on the importance of diet on wound healing and instructed to increase protein and vitamin C intake. Patient verbalized understanding. Patient will follow up at wound healing center in one week or sooner if needed. Patient was specifically educated on signs of systemic infection and cellulitis and instructed to seek emergent medical attention if this occurs. This note was generated with [employer] dictation software. It may contain incorrect words, spelling, and punctuation that were not noted in checking the note before signing. The patient's blood pressure was significantly elevated in the office, instructed to follow-up with her small animal caretaker or PCP to manage this. The patient states that it is elevated due to being anxious about today's office visit. Code Visit 111xxx-113xx: [id number] Alethea subq tissue 20 sq cm/<
[2017-07-10 13:14] VITALS: BP 167/70; PULSE 79; RESP 20; TEMP 36.6; BMI 41.1
--- NOTE | 2017-07-10 18:35 | PCM.WC.PN ---
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 Status: Acute Current Visit: Yes Code(s): L97.912 - Non-pressure chronic ulcer of unspecified part of right lower leg with fat layer exposed Comment: Right lateral ankle (2) Bilateral lower extremity edema Status: Acute Current Visit: Yes Code(s): R60.0 - Localized edema (3) Decreased pedal pulses Status: Acute Current Visit: Yes Code(s): R09.89 - Other specified symptoms and signs involving the circulatory and respiratory systems (4) Hypertension Status: Chronic Current Visit: No Qualifiers: Code(s): I10 - Essential (primary) hypertension (5) Obesity, Class II, BMI 35-39.9 Status: Chronic Current Visit: No Code(s): E66.9 - Obesity, unspecified Type of Wound Date of Service: 07/10/17 Chief Complaint: Nonhealing wound right ankle History of Wound: This is a 71-year-old -[place] female with a past medical history of hypertension, palpitations, obesity who presents to the wound healing center today with complaint of a nonhealing ulcer on right lateral ankle ?2 months. The patient presented to [facility] emergency department on 05/10/2017 with complaint of cutting her right lateral ankle open after hitting it on the edge of a refrigerator door. The patient was placed on Bactrim and completed the duration of antibiotics and then follow-up with her PCP who had placed her on another antibiotic as well. Patient is unsure which antibiotic that was. The patient states that the nonhealing wound has been tender and that there is a small amount of light yellow drainage from it. She states that the main stay of treatment she has been doing so far is covering it with a Band-Aid. She has not been using any compression. She denies any signs of systemic infection specifically any redness, warmth, or increase in pain. The patient otherwise denies any fever, chills, nausea, vomiting, shortness of breath, chest pain or pressure, palpitations, orthopnea, lower extremity edema, syncope or presyncopal episodes. Progress of Wound: Wound stable and improving, no signs of systemic infection such as increasing pain, drainage, redness, or increase in edema - Physical Exam Vital Signs Temp Pulse Resp BP 97.8 F 79 20 H 167/70 H 07/10/17 13:14 03/22/18 13:14 07/10/17 13:14 07/10/17 13:14 General: Alert, Oriented x3, Cooperative, No apparent distress HEENT: Atraumatic Cardiovascular: Regular rate Extremities: No clubbing, No cyanosis, Diminished Peripheral Pulses, Edema - Generalized bilateral lower extremity edema Skin: Ulcer/ Wound - Ulceration present right lower extremity lateral ankle, no redness or foul-smelling discharge noted, slough present adhering to the periwound bed edges, due to patient's low pain threshold unable to perform a effective debridement Wound Measurements and Assessment WC - Nurse 1 - General Ulcer Measurement Start: 06/26/17 13:48 Freq: Status: Active Protocol: Activity Type Activity Date Activity User E-Sign Co-Sign Detail Recorded Client Recorded Date Recorded By Document 07/10/17 13:14 DL [id number] 07/10/17 13:19 DL 07/10/17 13:14 Wound Center Nurse 1 [Ulcer Assessment] #1 RIGHT LATERAL LE -Current Size (cm) - Length 0.3 -Current Size (cm) - Width 0.4 -Current Size (cm) - Depth 0.2 -Total Square Cm 0.12 -Photo Taken No -Exudate Amt None Present (0 %) -Exudate Type Serosanguineous -Wound Margin Distinct, Outline Attached -Granulation Amt Small (1-33%) -Granulation Quality Red -Necrosis Amt Small (1-33%) -Necrotic Tissue Type Adherent Slough -Texture (Gladys-wound Skin Appearance) Scarring -Moisture (Gladys-wound Skin Appearance No Abnormality ) -Color (Gladys-wound Skin Appearance) Hemosiderin Staining -Temperature (Gladys-wound Skin No Abnormality Appearance) (Pt Warm) -Tenderness on Palpation (Gladys-wound Yes Skin Appearance) -Ulcer Cleansing Rinsed/ Irrigated with Saline -Foul Odor after Cleansing No -Anesthetic Used 4% Lidocaine Solution [Edema Assessment] -Right Calf (cm) 39.3 -Right Ankle (cm) 20.9 WC - Nurse 2 - General Ulcer CM Notes Start: 06/26/17 13:48 Freq: Status: Active Protocol: Activity Type Activity Date Activity User E-Sign Co-Sign Detail Recorded Client Recorded Date Recorded By Document 07/10/17 13:43 DV [id number] 07/10/17 13:47 DV 07/10/17 13:43 Wound Center Nurse 2 [Procedure/Treatment] #1 RIGHT LATERAL LE -Time 13:43 -Correct Patient Yes -Correct Side, Site, Position Yes -Correct Procedure Yes -Procedure Performed Yes -Type of Procedure Debridement -Clinical Debridement Subcutaneous -Post Debridement Size (cm) - Length 0.4 -Post Debridement Size (cm) - Width 0.5 -Post Debridement Size (cm) - Depth 0.3 -Total Square Cm 0.20 -Wound/Ulcer Outcome Not Healed -Ulcer Cleansing Rinsed/ Irrigated with Saline -Foul Odor after Cleansing No -Bioengineered Tissue No -Bleeding Controlled with Pressure -Treatment Response Procedure Not Tolerated Well [See Physician Procedure note for Specifics] Pain Scale: 0-10 Numeric [Pain] -Is Patient Pain Free? No [Location] right ankle -Description Sharp Burning -Intensity 8 Query Text:If >3, intervention needed -Radiation Location up leg -Duration (hours) Acute -Pain Behavior Moaning Guarding Rubbing Site -Pain Aggravating Factors ADL's -Alleviating Factors/Interventions Medication -Effectiveness of Alleviating Factor/ Moderately Intervention effective Neurological: Neuro grossly intact Psych/Mental Status: Normal Affect, Alert and oriented to time, place, person, mood and affect Debridement Note Post-Debridement Measurements/Treatment WC - Nurse 2 - General Ulcer CM Notes Start: 06/26/17 13:48 Freq: Status: Active Protocol: Activity Type Activity Date Activity User E-Sign Co-Sign Detail Recorded Client Recorded Date Recorded By Document 06/26/17 14:56 DV [id number] 06/26/17 15:02 DV Document 07/03/17 14:40 DV [id number] 07/03/17 14:45 DV Document 07/10/17 13:43 DV [id number] 07/10/17 13:47 DV 06/26/17 07/03/17 07/10/17 14:56 14:40 13:43 Wound Center Nurse 2 #1 RIGHT LATERAL LE -Time 15:00 14:40 13:43 -Correct Patient Yes Yes Yes -Correct Side, Site, Position Yes Yes Yes -Correct Procedure Yes Yes Yes -Procedure Performed Yes Yes Yes -Type of Procedure Debridement Debridement Debridement -Clinical Debridement Subcutaneous Subcutaneous Subcutaneous -Post Debridement Size (cm) - Length 0.5 0.5 0.4 -Post Debridement Size (cm) - Width 1.1 1.2 0.5 -Post Debridement Size (cm) - Depth 0.3 0.3 0.3 -Total Square Cm 0.55 0.60 0.20 -Wound/Ulcer Outcome Not Healed Not Healed Not Healed -Ulcer Cleansing Rinsed/ Rinsed/ Rinsed/ Irrigated with Irrigated with Irrigated with Saline Saline Saline -Foul Odor after Cleansing No No No -Bioengineered Tissue No No No -Bleeding Controlled with Pressure Pressure Pressure -Treatment Response Procedure Procedure Procedure Not Tolerated Well Tolerated Well Tolerated Well Pain Scale: 0-10 Numeric Is Patient Pain Free? Yes Yes No right ankle -Description Sharp Burning -Intensity 8 Query Text:If >3, intervention needed -Radiation Location up leg -Duration (hours) Acute -Pain Behavior Moaning Guarding Rubbing Site -Pain Aggravating Factors ADL's -Alleviating Factors/Interventions Medication -Effectiveness of Alleviating Factor/ Moderately Intervention effective Wound debrided: Right lower extremity lateral ankle ulcer Laterality: Right Type of Debridement: Excisional debridement Anesthesia Used: 5% Lidocaine Gel Depth: in the subcutaneous layer Percentage of wound debrided: 100 Instrument Used: 3mm curette Tissue Removed: Slough Severity: Limited To Skin Breakdown Amount of bleeding with debridement: Mild Bleeding Controlled with: Pressure Patient tolerated procedure well Assessment/Plan Active Problems (Last Reviewed 04/11/17 @ 10:50 by Marino Givens MD) Bilateral lower extremity edema (Acute) 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 (Acute) Right lateral ankle Decreased pedal pulses (Acute) Assessment: Nonhealing ulcer right lateral ankle Plan: The patient was seen and examined at the wound center today and was updated on the plan of care. A subcutaneous debridement was performed today. The patient tolerated the procedure well. Due to the patient's low pain threshold and inability to tolerate aggressive debridements, the patients wound care will consist of: Applying Santyl daily and covering with gauze, previously prescribed MUSTAPHA hose for compression. Wound cultures were collected previously and demonstrated rare Pseudomonas and 1+ E. coli, Cipro 500 mg twice daily for 10 days was ordered as both were sensitive to this, patient educated on how and when to take medication and potential side effects. Patient started the antibiotic late due to being concerned about the potential side effects, however talked with the pharmacist and has since been tolerating the antibiotic. Reinforced importance of completing the entire course of antibiotics. Baseline bloodwork reviewed with patient and was within normal limits. Vascular studies demonstrated right EMILI 1.29 and left EMILI 1.20 and venous insufficiency as well. Patient educated on the importance of diet on wound healing and instructed to increase protein and vitamin C intake. Patient verbalized understanding. Patient will follow up at wound healing center in one week or sooner if needed. Patient was specifically educated on signs of systemic infection and cellulitis and instructed to seek emergent medical attention if this occurs. This note was generated with [employer] dictation software. It may contain incorrect words, spelling, and punctuation that were not noted in checking the note before signing. Code Visit 111xxx-113xx: [id number] Alethea subq tissue 20 sq cm/<
--- NOTE | 2017-07-13 10:41 | PN.PCM_ITS ---
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 Status: Acute Current Visit: Yes Code(s): L97.912 - Non-pressure chronic ulcer of unspecified part of right lower leg with fat layer exposed Comment: Right lateral ankle (2) Bilateral lower extremity edema Status: Acute Current Visit: Yes Code(s): R60.0 - Localized edema (3) Decreased pedal pulses Status: Acute Current Visit: Yes Code(s): R09.89 - Other specified symptoms and signs involving the circulatory and respiratory systems (4) Hypertension Status: Chronic Current Visit: No Qualifiers: Code(s): I10 - Essential (primary) hypertension (5) Obesity, Class II, BMI 35-39.9 Status: Chronic Current Visit: No Code(s): E66.9 - Obesity, unspecified Type of Wound Date of Service: 07/10/17 Chief Complaint: Nonhealing wound right ankle History of Wound: This is a 71-year-old -[place] female with a past medical history of hypertension, palpitations, obesity who presents to the wound healing center today with complaint of a nonhealing ulcer on right lateral ankle ?2 months. The patient presented to [facility] emergency department on 05/10/2017 with complaint of cutting her right lateral ankle open after hitting it on the edge of a refrigerator door. The patient was placed on Bactrim and completed the duration of antibiotics and then follow- up with her PCP who had placed her on another antibiotic as well. Patient is unsure which antibiotic that was. The patient states that the nonhealing wound has been tender and that there is a small amount of light yellow drainage from it. She states that the main stay of treatment she has been doing so far is covering it with a Band-Aid. She has not been using any compression. She denies any signs of systemic infection specifically any redness, warmth, or increase in pain. The patient otherwise denies any fever, chills, nausea, vomiting, shortness of breath, chest pain or pressure, palpitations, orthopnea, lower extremity edema, syncope or presyncopal episodes. Progress of Wound: Wound stable and improving, no signs of systemic infection such as increasing pain, drainage, redness, or increase in edema - Physical Exam Vital Signs Temp Pulse Resp BP 97.8 F 79 20 H 167/70 H 07/10/17 13:14 03/22/18 13:14 07/10/17 13:14 07/10/17 13:14 General: Alert, Oriented x3, Cooperative, No apparent distress HEENT: Atraumatic Cardiovascular: Regular rate Extremities: No clubbing, No cyanosis, Diminished Peripheral Pulses, Edema - Generalized bilateral lower extremity edema Skin: Ulcer/ Wound - Ulceration present right lower extremity lateral ankle, no redness or foul-smelling discharge noted, slough present adhering to the periwound bed edges, due to patient's low pain threshold unable to perform a effective debridement Wound Measurements and Assessment WC - Nurse 1 - General Ulcer Measurement Start: 06/26/17 13:48 Freq: Status: Active Protocol: Activity Type Activity Date Activity User E-Sign Co-Sign Detail Recorded Client Recorded Date Recorded By Document 07/10/17 13:14 DL [id number] 07/10/17 13:19 DL 07/10/17 13:14 Wound Center Nurse 1 [Ulcer Assessment] #1 RIGHT LATERAL LE -Current Size (cm) - Length 0.3 -Current Size (cm) - Width 0.4 -Current Size (cm) - Depth 0.2 -Total Square Cm 0.12 -Photo Taken No -Exudate Amt None Present (0 %) -Exudate Type Serosanguineous -Wound Margin Distinct, Outline Attached -Granulation Amt Small (1-33%) -Granulation Quality Red -Necrosis Amt Small (1-33%) -Necrotic Tissue Type Adherent Slough -Texture (Gladys-wound Skin Appearance) Scarring -Moisture (Gladys-wound Skin Appearance No Abnormality ) -Color (Gladys-wound Skin Appearance) Hemosiderin Staining -Temperature (Gladys-wound Skin No Abnormality Appearance) (Pt Warm) -Tenderness on Palpation (Gladys-wound Yes Skin Appearance) -Ulcer Cleansing Rinsed/ Irrigated with Saline -Foul Odor after Cleansing No -Anesthetic Used 4% Lidocaine Solution [Edema Assessment] -Right Calf (cm) 39.3 -Right Ankle (cm) 20.9 WC - Nurse 2 - General Ulcer CM Notes Start: 06/26/17 13:48 Freq: Status: Active Protocol: Activity Type Activity Date Activity User E-Sign Co-Sign Detail Recorded Client Recorded Date Recorded By Document 07/10/17 13:43 DV [id number] 07/10/17 13:47 DV 07/10/17 13:43 Wound Center Nurse 2 [Procedure/Treatment] #1 RIGHT LATERAL LE -Time 13:43 -Correct Patient Yes -Correct Side, Site, Position Yes -Correct Procedure Yes -Procedure Performed Yes -Type of Procedure Debridement -Clinical Debridement Subcutaneous -Post Debridement Size (cm) - Length 0.4 -Post Debridement Size (cm) - Width 0.5 -Post Debridement Size (cm) - Depth 0.3 -Total Square Cm 0.20 -Wound/Ulcer Outcome Not Healed -Ulcer Cleansing Rinsed/ Irrigated with Saline -Foul Odor after Cleansing No -Bioengineered Tissue No -Bleeding Controlled with Pressure -Treatment Response Procedure Not Tolerated Well [See Physician Procedure note for Specifics] Pain Scale: 0-10 Numeric [Pain] -Is Patient Pain Free? No [Location] right ankle -Description Sharp Burning -Intensity 8 Query Text:If >3, intervention needed -Radiation Location up leg -Duration (hours) Acute -Pain Behavior Moaning Guarding Rubbing Site -Pain Aggravating Factors ADL's -Alleviating Factors/Interventions Medication -Effectiveness of Alleviating Factor/ Moderately Intervention effective Neurological: Neuro grossly intact Psych/Mental Status: Normal Affect, Alert and oriented to time, place, person, mood and affect Debridement Note Post-Debridement Measurements/Treatment WC - Nurse 2 - General Ulcer CM Notes Start: 06/26/17 13:48 Freq: Status: Active Protocol: Activity Type Activity Date Activity User E-Sign Co-Sign Detail Recorded Client Recorded Date Recorded By Document 06/26/17 14:56 DV [id number] 06/26/17 15:02 DV Document 07/03/17 14:40 DV [id number] 07/03/17 14:45 DV Document 07/10/17 13:43 DV [id number] 07/10/17 13:47 DV 06/26/17 07/03/17 07/10/17 14:56 14:40 13:43 Wound Center Nurse 2 #1 RIGHT LATERAL LE -Time 15:00 14:40 13:43 -Correct Patient Yes Yes Yes -Correct Side, Site, Position Yes Yes Yes -Correct Procedure Yes Yes Yes -Procedure Performed Yes Yes Yes -Type of Procedure Debridement Debridement Debridement -Clinical Debridement Subcutaneous Subcutaneous Subcutaneous -Post Debridement Size (cm) - Length 0.5 0.5 0.4 -Post Debridement Size (cm) - Width 1.1 1.2 0.5 -Post Debridement Size (cm) - Depth 0.3 0.3 0.3 -Total Square Cm 0.55 0.60 0.20 -Wound/Ulcer Outcome Not Healed Not Healed Not Healed -Ulcer Cleansing Rinsed/ Rinsed/ Rinsed/ Irrigated with Irrigated with Irrigated with Saline Saline Saline -Foul Odor after Cleansing No No No -Bioengineered Tissue No No No -Bleeding Controlled with Pressure Pressure Pressure -Treatment Response Procedure Procedure Procedure Not Tolerated Well Tolerated Well Tolerated Well Pain Scale: 0-10 Numeric Is Patient Pain Free? Yes Yes No right ankle -Description Sharp Burning -Intensity 8 Query Text:If >3, intervention needed -Radiation Location up leg -Duration (hours) Acute -Pain Behavior Moaning Guarding Rubbing Site -Pain Aggravating Factors ADL's -Alleviating Factors/Interventions Medication -Effectiveness of Alleviating Factor/ Moderately Intervention effective Wound debrided: Right lower extremity lateral ankle ulcer Laterality: Right Type of Debridement: Excisional debridement Anesthesia Used: 5% Lidocaine Gel Depth: in the subcutaneous layer Percentage of wound debrided: 100 Instrument Used: 3mm curette Tissue Removed: Slough Severity: Limited To Skin Breakdown Amount of bleeding with debridement: Mild Bleeding Controlled with: Pressure Patient tolerated procedure well Assessment/Plan Active Problems (Last Reviewed 04/11/17 @ 10:50 by Marino Givens MD) Bilateral lower extremity edema (Acute) 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 (Acute) Right lateral ankle Decreased pedal pulses (Acute) Assessment: Nonhealing ulcer right lateral ankle Plan: The patient was seen and examined at the wound center today and was updated on the plan of care. A subcutaneous debridement was performed today. The patient tolerated the procedure well. Due to the patient's low pain threshold and inability to tolerate aggressive debridements, the patients wound care will consist of: Applying Santyl daily and covering with gauze, previously prescribed MUSTAPHA hose for compression. Wound cultures were collected previously and demonstrated rare Pseudomonas and 1+ E. coli, Cipro 500 mg twice daily for 10 days was ordered as both were sensitive to this, patient educated on how and when to take medication and potential side effects. Patient started the antibiotic late due to being concerned about the potential side effects, however talked with the pharmacist and has since been tolerating the antibiotic. Reinforced importance of completing the entire course of antibiotics. Baseline bloodwork reviewed with patient and was within normal limits. Vascular studies demonstrated right EMILI 1.29 and left EMILI 1.20 and venous insufficiency as well. Patient educated on the importance of diet on wound healing and instructed to increase protein and vitamin C intake. Patient verbalized understanding. Patient will follow up at wound healing center in one week or sooner if needed. Patient was specifically educated on signs of systemic infection and cellulitis and instructed to seek emergent medical attention if this occurs. This note was generated with [employer] dictation software. It may contain incorrect words, spelling, and punctuation that were not noted in checking the note before signing. Code Visit 111xxx-113xx: [id number] Alethea subq tissue 20 sq cm/<
[2017-07-17 13:06] VITALS: BP 164/69; PULSE 72; RESP 18; TEMP 36.3; BMI 41.1
--- NOTE | 2017-07-17 17:56 | PCM.WC.PN ---
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 Status: Acute Current Visit: Yes Code(s): L97.912 - Non-pressure chronic ulcer of unspecified part of right lower leg with fat layer exposed Comment: Right lateral ankle (2) Bilateral lower extremity edema Status: Acute Current Visit: Yes Code(s): R60.0 - Localized edema (3) Decreased pedal pulses Status: Acute Current Visit: Yes Code(s): R09.89 - Other specified symptoms and signs involving the circulatory and respiratory systems (4) Hypertension Status: Chronic Current Visit: No Qualifiers: Code(s): I10 - Essential (primary) hypertension (5) Obesity, Class II, BMI 35-39.9 Status: Chronic Current Visit: No Code(s): E66.9 - Obesity, unspecified Type of Wound Date of Service: 07/17/17 Chief Complaint: Nonhealing wound right ankle History of Wound: This is a 71-year-old -[place] female with a past medical history of hypertension, palpitations, obesity who presents to the wound healing center today with complaint of a nonhealing ulcer on right lateral ankle ?2 months. The patient presented to [facility] emergency department on 05/10/2017 with complaint of cutting her right lateral ankle open after hitting it on the edge of a refrigerator door. The patient was placed on Bactrim and completed the duration of antibiotics and then follow-up with her PCP who had placed her on another antibiotic as well. Patient is unsure which antibiotic that was. The patient states that the nonhealing wound has been tender and that there is a small amount of light yellow drainage from it. She states that the main stay of treatment she has been doing so far is covering it with a Band-Aid. She has not been using any compression. She denies any signs of systemic infection specifically any redness, warmth, or increase in pain. The patient otherwise denies any fever, chills, nausea, vomiting, shortness of breath, chest pain or pressure, palpitations, orthopnea, lower extremity edema, syncope or presyncopal episodes. Progress of Wound: Wound stable and improving, no signs of systemic infection such as increasing pain, drainage, redness, or increase in edema - Physical Exam Vital Signs Temp Pulse Resp BP 97.4 F L 72 18 164/69 H 07/17/17 13:06 07/17/17 13:06 07/17/17 13:06 07/17/17 13:06 General: Alert, Oriented x3, Cooperative, No apparent distress HEENT: Atraumatic Lungs: Clear to auscultation Cardiovascular: Regular rate Extremities: Diminished Peripheral Pulses, Edema - Generalized bilateral lower extremity Skin: Ulcer/ Wound - Ulceration present right lower extremity lateral ankle, slough present, no signs of infection at this time Wound Measurements and Assessment WC - Nurse 1 - General Ulcer Measurement Start: 06/26/17 13:48 Freq: Status: Active Protocol: Activity Type Activity Date Activity User E-Sign Co-Sign Detail Recorded Client Recorded Date Recorded By Document 07/17/17 13:06 DL [id number] 07/17/17 13:12 DL 07/17/17 13:06 Wound Center Nurse 1 [Ulcer Assessment] #1 RIGHT LATERAL LE -Current Size (cm) - Length 0.2 -Current Size (cm) - Width 0.3 -Current Size (cm) - Depth 0.1 -Total Square Cm 0.06 -Photo Taken No -Exudate Amt None Present (0 %) -Wound Margin Flat & Intact -Granulation Amt None Present (0 %) -Necrosis Amt Small (1-33%) -Necrotic Tissue Type Adherent Slough -Structure Exposed N/A -Texture (Gladys-wound Skin Appearance) Scarring -Moisture (Gladys-wound Skin Appearance No Abnormality ) -Color (Gladys-wound Skin Appearance) No Abnormality -Temperature (Gladys-wound Skin No Abnormality Appearance) (Pt Warm) -Ulcer Cleansing Rinsed/ Irrigated with Saline -Foul Odor after Cleansing No -Anesthetic Used 4% Lidocaine Solution [Edema Assessment] -Right Calf (cm) 39.6 -Right Ankle (cm) 20.7 WC - Nurse 2 - General Ulcer CM Notes Start: 06/26/17 13:48 Freq: Status: Active Protocol: Activity Type Activity Date Activity User E-Sign Co-Sign Detail Recorded Client Recorded Date Recorded By Document 07/17/17 13:29 DV [id number] 07/17/17 13:34 DV 07/17/17 13:29 Wound Center Nurse 2 [Procedure/Treatment] #1 RIGHT LATERAL LE -Time 13:30 -Correct Patient Yes -Correct Side, Site, Position Yes -Correct Procedure Yes -Procedure Performed Yes -Type of Procedure Debridement -Clinical Debridement Subcutaneous -Post Debridement Size (cm) - Length 0.4 -Post Debridement Size (cm) - Width 0.5 -Post Debridement Size (cm) - Depth 0.2 -Total Square Cm 0.20 -Wound/Ulcer Outcome Not Healed -Ulcer Cleansing Rinsed/ Irrigated with Saline -Foul Odor after Cleansing No -Bioengineered Tissue No -Bleeding Controlled with Pressure -Treatment Response Procedure Tolerated Well [See Physician Procedure note for Specifics] Pain Scale: 0-10 Numeric [Pain] -Is Patient Pain Free? Yes Neurological: Neuro grossly intact Psych/Mental Status: Normal Affect, Alert and oriented to time, place, person, mood and affect Debridement Note Post-Debridement Measurements/Treatment WC - Nurse 2 - General Ulcer CM Notes Start: 06/26/17 13:48 Freq: Status: Active Protocol: Activity Type Activity Date Activity User E-Sign Co-Sign Detail Recorded Client Recorded Date Recorded By Document 06/26/17 14:56 DV [id number] 06/26/17 15:02 DV Document 07/03/17 14:40 DV [id number] 07/03/17 14:45 DV Document 07/10/17 13:43 DV [id number] 07/10/17 13:47 DV Document 07/17/17 13:29 DV [id number] 07/17/17 13:34 DV 06/26/17 07/03/17 07/10/17 14:56 14:40 13:43 Wound Center Nurse 2 #1 RIGHT LATERAL LE -Time 15:00 14:40 13:43 -Correct Patient Yes Yes Yes -Correct Side, Site, Position Yes Yes Yes -Correct Procedure Yes Yes Yes -Procedure Performed Yes Yes Yes -Type of Procedure Debridement Debridement Debridement -Clinical Debridement Subcutaneous Subcutaneous Subcutaneous -Post Debridement Size (cm) - Length 0.5 0.5 0.4 -Post Debridement Size (cm) - Width 1.1 1.2 0.5 -Post Debridement Size (cm) - Depth 0.3 0.3 0.3 -Total Square Cm 0.55 0.60 0.20 -Wound/Ulcer Outcome Not Healed Not Healed Not Healed -Ulcer Cleansing Rinsed/ Rinsed/ Rinsed/ Irrigated with Irrigated with Irrigated with Saline Saline Saline -Foul Odor after Cleansing No No No -Bioengineered Tissue No No No -Bleeding Controlled with Pressure Pressure Pressure -Treatment Response Procedure Procedure Procedure Not Tolerated Well Tolerated Well Tolerated Well Pain Scale: 0-10 Numeric Is Patient Pain Free? Yes Yes No right ankle -Description Sharp Burning -Intensity 8 -Radiation Location up leg -Duration (hours) Acute -Pain Behavior Moaning Guarding Rubbing Site -Pain Aggravating Factors ADL's -Alleviating Factors/Interventions Medication -Effectiveness of Alleviating Factor/ Moderately Intervention effective 07/17/17 13:29 Wound Center Nurse 2 #1 RIGHT LATERAL LE -Time 13:30 -Correct Patient Yes -Correct Side, Site, Position Yes -Correct Procedure Yes -Procedure Performed Yes -Type of Procedure Debridement -Clinical Debridement Subcutaneous -Post Debridement Size (cm) - Length 0.4 -Post Debridement Size (cm) - Width 0.5 -Post Debridement Size (cm) - Depth 0.2 -Total Square Cm 0.20 -Wound/Ulcer Outcome Not Healed -Ulcer Cleansing Rinsed/ Irrigated with Saline -Foul Odor after Cleansing No -Bioengineered Tissue No -Bleeding Controlled with Pressure -Treatment Response Procedure Tolerated Well Pain Scale: 0-10 Numeric Is Patient Pain Free? Yes right ankle -Description -Intensity -Radiation Location -Duration (hours) -Pain Behavior -Pain Aggravating Factors -Alleviating Factors/Interventions -Effectiveness of Alleviating Factor/ Intervention Wound debrided: Right lower extremity ulceration right lateral ankle Laterality: Right Type of Debridement: Excisional debridement Anesthesia Used: 4% Lidocaine Solution, 5% Lidocaine Gel Depth: in the subcutaneous layer Percentage of wound debrided: 100 Instrument Used: 3mm curette Tissue Removed: Slough and bioburden Severity: Fat Layer Exposed Amount of bleeding with debridement: Mild Bleeding Controlled with: Pressure Patient tolerated procedure well Assessment/Plan Active Problems (Last Reviewed 04/11/17 @ 10:50 by Marino Givens MD) Bilateral lower extremity edema (Acute) 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 (Acute) Right lateral ankle Decreased pedal pulses (Acute) Assessment: Nonhealing ulcer right lateral ankle Plan: The patient was seen and examined at the wound center today and was updated on the plan of care. A subcutaneous debridement was performed today. The patient tolerated the procedure well. The patients wound care will consist of: The application of moistened Saray and a double layer 3M wrap for compression. Wound cultures were collected previously and demonstrated rare Pseudomonas and 1+ E. coli, Cipro 500 mg twice daily for 10 days was completed. Baseline bloodwork reviewed with patient and was within normal limits. Vascular studies demonstrated right EMILI 1.29 and left EMILI 1.20 and venous insufficiency as well. Patient educated on the importance of diet on wound healing and instructed to increase protein and vitamin C intake. Patient verbalized understanding. Patient will follow up at wound healing center in one week or sooner if needed. Patient was specifically educated on signs of systemic infection and cellulitis and instructed to seek emergent medical attention if this occurs. This note was generated with [employer] dictation software. It may contain incorrect words, spelling, and punctuation that were not noted in checking the note before signing. Code Visit 111xxx-113xx: [id number] Alethea subq tissue 20 sq cm/<
--- NOTE | 2017-07-19 12:01 | PN.PCM_ITS ---
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 Status: Acute Current Visit: Yes Code(s): L97.912 - Non-pressure chronic ulcer of unspecified part of right lower leg with fat layer exposed Comment: Right lateral ankle (2) Bilateral lower extremity edema Status: Acute Current Visit: Yes Code(s): R60.0 - Localized edema (3) Decreased pedal pulses Status: Acute Current Visit: Yes Code(s): R09.89 - Other specified symptoms and signs involving the circulatory and respiratory systems (4) Hypertension Status: Chronic Current Visit: No Qualifiers: Code(s): I10 - Essential (primary) hypertension (5) Obesity, Class II, BMI 35-39.9 Status: Chronic Current Visit: No Code(s): E66.9 - Obesity, unspecified Type of Wound Date of Service: 07/17/17 Chief Complaint: Nonhealing wound right ankle History of Wound: This is a 71-year-old -[place] female with a past medical history of hypertension, palpitations, obesity who presents to the wound healing center today with complaint of a nonhealing ulcer on right lateral ankle ?2 months. The patient presented to [facility] emergency department on 05/10/2017 with complaint of cutting her right lateral ankle open after hitting it on the edge of a refrigerator door. The patient was placed on Bactrim and completed the duration of antibiotics and then follow- up with her PCP who had placed her on another antibiotic as well. Patient is unsure which antibiotic that was. The patient states that the nonhealing wound has been tender and that there is a small amount of light yellow drainage from it. She states that the main stay of treatment she has been doing so far is covering it with a Band-Aid. She has not been using any compression. She denies any signs of systemic infection specifically any redness, warmth, or increase in pain. The patient otherwise denies any fever, chills, nausea, vomiting, shortness of breath, chest pain or pressure, palpitations, orthopnea, lower extremity edema, syncope or presyncopal episodes. Progress of Wound: Wound stable and improving, no signs of systemic infection such as increasing pain, drainage, redness, or increase in edema - Physical Exam Vital Signs Temp Pulse Resp BP 97.4 F L 72 18 164/69 H 07/17/17 13:06 07/17/17 13:06 07/17/17 13:06 07/17/17 13:06 General: Alert, Oriented x3, Cooperative, No apparent distress HEENT: Atraumatic Lungs: Clear to auscultation Cardiovascular: Regular rate Extremities: Diminished Peripheral Pulses, Edema - Generalized bilateral lower extremity Skin: Ulcer/ Wound - Ulceration present right lower extremity lateral ankle, slough present, no signs of infection at this time Wound Measurements and Assessment WC - Nurse 1 - General Ulcer Measurement Start: 06/26/17 13:48 Freq: Status: Active Protocol: Activity Type Activity Date Activity User E-Sign Co-Sign Detail Recorded Client Recorded Date Recorded By Document 07/17/17 13:06 DL [id number] 07/17/17 13:12 DL 07/17/17 13:06 Wound Center Nurse 1 [Ulcer Assessment] #1 RIGHT LATERAL LE -Current Size (cm) - Length 0.2 -Current Size (cm) - Width 0.3 -Current Size (cm) - Depth 0.1 -Total Square Cm 0.06 -Photo Taken No -Exudate Amt None Present (0 %) -Wound Margin Flat & Intact -Granulation Amt None Present (0 %) -Necrosis Amt Small (1-33%) -Necrotic Tissue Type Adherent Slough -Structure Exposed N/A -Texture (Gladys-wound Skin Appearance) Scarring -Moisture (Gladys-wound Skin Appearance No Abnormality ) -Color (Gladys-wound Skin Appearance) No Abnormality -Temperature (Gladys-wound Skin No Abnormality Appearance) (Pt Warm) -Ulcer Cleansing Rinsed/ Irrigated with Saline -Foul Odor after Cleansing No -Anesthetic Used 4% Lidocaine Solution [Edema Assessment] -Right Calf (cm) 39.6 -Right Ankle (cm) 20.7 WC - Nurse 2 - General Ulcer CM Notes Start: 06/26/17 13:48 Freq: Status: Active Protocol: Activity Type Activity Date Activity User E-Sign Co-Sign Detail Recorded Client Recorded Date Recorded By Document 07/17/17 13:29 DV [id number] 07/17/17 13:34 DV 07/17/17 13:29 Wound Center Nurse 2 [Procedure/Treatment] #1 RIGHT LATERAL LE -Time 13:30 -Correct Patient Yes -Correct Side, Site, Position Yes -Correct Procedure Yes -Procedure Performed Yes -Type of Procedure Debridement -Clinical Debridement Subcutaneous -Post Debridement Size (cm) - Length 0.4 -Post Debridement Size (cm) - Width 0.5 -Post Debridement Size (cm) - Depth 0.2 -Total Square Cm 0.20 -Wound/Ulcer Outcome Not Healed -Ulcer Cleansing Rinsed/ Irrigated with Saline -Foul Odor after Cleansing No -Bioengineered Tissue No -Bleeding Controlled with Pressure -Treatment Response Procedure Tolerated Well [See Physician Procedure note for Specifics] Pain Scale: 0-10 Numeric [Pain] -Is Patient Pain Free? Yes Neurological: Neuro grossly intact Psych/Mental Status: Normal Affect, Alert and oriented to time, place, person, mood and affect Debridement Note Post-Debridement Measurements/Treatment WC - Nurse 2 - General Ulcer CM Notes Start: 06/26/17 13:48 Freq: Status: Active Protocol: Activity Type Activity Date Activity User E-Sign Co-Sign Detail Recorded Client Recorded Date Recorded By Document 06/26/17 14:56 DV [id number] 06/26/17 15:02 DV Document 07/03/17 14:40 DV [id number] 07/03/17 14:45 DV Document 07/10/17 13:43 DV [id number] 07/10/17 13:47 DV Document 07/17/17 13:29 DV [id number] 07/17/17 13:34 DV 06/26/17 07/03/17 07/10/17 14:56 14:40 13:43 Wound Center Nurse 2 #1 RIGHT LATERAL LE -Time 15:00 14:40 13:43 -Correct Patient Yes Yes Yes -Correct Side, Site, Position Yes Yes Yes -Correct Procedure Yes Yes Yes -Procedure Performed Yes Yes Yes -Type of Procedure Debridement Debridement Debridement -Clinical Debridement Subcutaneous Subcutaneous Subcutaneous -Post Debridement Size (cm) - Length 0.5 0.5 0.4 -Post Debridement Size (cm) - Width 1.1 1.2 0.5 -Post Debridement Size (cm) - Depth 0.3 0.3 0.3 -Total Square Cm 0.55 0.60 0.20 -Wound/Ulcer Outcome Not Healed Not Healed Not Healed -Ulcer Cleansing Rinsed/ Rinsed/ Rinsed/ Irrigated with Irrigated with Irrigated with Saline Saline Saline -Foul Odor after Cleansing No No No -Bioengineered Tissue No No No -Bleeding Controlled with Pressure Pressure Pressure -Treatment Response Procedure Procedure Procedure Not Tolerated Well Tolerated Well Tolerated Well Pain Scale: 0-10 Numeric Is Patient Pain Free? Yes Yes No right ankle -Description Sharp Burning -Intensity 8 -Radiation Location up leg -Duration (hours) Acute -Pain Behavior Moaning Guarding Rubbing Site -Pain Aggravating Factors ADL's -Alleviating Factors/Interventions Medication -Effectiveness of Alleviating Factor/ Moderately Intervention effective 07/17/17 13:29 Wound Center Nurse 2 #1 RIGHT LATERAL LE -Time 13:30 -Correct Patient Yes -Correct Side, Site, Position Yes -Correct Procedure Yes -Procedure Performed Yes -Type of Procedure Debridement -Clinical Debridement Subcutaneous -Post Debridement Size (cm) - Length 0.4 -Post Debridement Size (cm) - Width 0.5 -Post Debridement Size (cm) - Depth 0.2 -Total Square Cm 0.20 -Wound/Ulcer Outcome Not Healed -Ulcer Cleansing Rinsed/ Irrigated with Saline -Foul Odor after Cleansing No -Bioengineered Tissue No -Bleeding Controlled with Pressure -Treatment Response Procedure Tolerated Well Pain Scale: 0-10 Numeric Is Patient Pain Free? Yes right ankle -Description -Intensity -Radiation Location -Duration (hours) -Pain Behavior -Pain Aggravating Factors -Alleviating Factors/Interventions -Effectiveness of Alleviating Factor/ Intervention Wound debrided: Right lower extremity ulceration right lateral ankle Laterality: Right Type of Debridement: Excisional debridement Anesthesia Used: 4% Lidocaine Solution, 5% Lidocaine Gel Depth: in the subcutaneous layer Percentage of wound debrided: 100 Instrument Used: 3mm curette Tissue Removed: Slough and bioburden Severity: Fat Layer Exposed Amount of bleeding with debridement: Mild Bleeding Controlled with: Pressure Patient tolerated procedure well Assessment/Plan Active Problems (Last Reviewed 04/11/17 @ 10:50 by Marino Givens MD) Bilateral lower extremity edema (Acute) 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 (Acute) Right lateral ankle Decreased pedal pulses (Acute) Assessment: Nonhealing ulcer right lateral ankle Plan: The patient was seen and examined at the wound center today and was updated on the plan of care. A subcutaneous debridement was performed today. The patient tolerated the procedure well. The patients wound care will consist of: The application of moistened Saray and a double layer 3M wrap for compression. Wound cultures were collected previously and demonstrated rare Pseudomonas and 1+ E. coli, Cipro 500 mg twice daily for 10 days was completed. Baseline bloodwork reviewed with patient and was within normal limits. Vascular studies demonstrated right EMILI 1.29 and left EMILI 1.20 and venous insufficiency as well. Patient educated on the importance of diet on wound healing and instructed to increase protein and vitamin C intake. Patient verbalized understanding. Patient will follow up at wound healing center in one week or sooner if needed. Patient was specifically educated on signs of systemic infection and cellulitis and instructed to seek emergent medical attention if this occurs. This note was generated with [employer] dictation software. It may contain incorrect words, spelling, and punctuation that were not noted in checking the note before signing. Code Visit 111xxx-113xx: [id number] Alethea subq tissue 20 sq cm/<
== END 2017-07-19 23:59 ==
LOC: WC 13:00
PROVIDERS: Family Provider Family Medicine Geriatric Medicine; PCP Family Medicine Geriatric Medicine; Visit Provider Nurse Practitioner Family
DX: L97.312 Non-pressure chronic ulcer of right ankle with fat layer exposed (principal); E66.9 Obesity, unspecified; Z68.41 Body mass index [BMI] 40.0-44.9, adult; R09.89 Other specified symptoms and signs involving the circulatory and respiratory systems; R60.0 Localized edema; I10 Essential (primary) hypertension; M19.90 Unspecified osteoarthritis, unspecified site; Z79.899 Other long term (current) drug therapy; Z79.82 Long term (current) use of aspirin
CPT/HCPCS: 11042; 29581; 80053; 83036; 84134; 85025; 85652; 87070; 87075; 87077; 87186; 87205; 99213; G0463

== ENCOUNTER 2017-07-24 08:18 | Outpatient (RCR) | payer MEDICARE, OTHER, SELFPAY ==
[2017-07-20 01:06] VITALS: PULSE 72; RESP 18; TEMP 36.3
[2017-07-24 09:40] VITALS: BP 153/85; PULSE 72; RESP 18; TEMP 37.2
--- NOTE | 2017-07-24 14:37 | PCM.WC.PN ---
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 Status: Acute Current Visit: No Code(s): L97.912 - Non-pressure chronic ulcer of unspecified part of right lower leg with fat layer exposed Comment: Right lateral ankle (2) Bilateral lower extremity edema Status: Acute Current Visit: No Code(s): R60.0 - Localized edema (3) Decreased pedal pulses Status: Acute Current Visit: No Code(s): R09.89 - Other specified symptoms and signs involving the circulatory and respiratory systems (4) Hypertension Status: Chronic Current Visit: No Qualifiers: Code(s): I10 - Essential (primary) hypertension (5) Obesity, Class II, BMI 35-39.9 Status: Chronic Current Visit: No Code(s): E66.9 - Obesity, unspecified Type of Wound Date of Service: 07/24/17 Chief Complaint: Nonhealing wound right ankle History of Wound: This is a 71-year-old -[place] female with a past medical history of hypertension, palpitations, obesity who presents to the wound healing center today with complaint of a nonhealing ulcer on right lateral ankle ?2 months. The patient presented to [facility] emergency department on 05/10/2017 with complaint of cutting her right lateral ankle open after hitting it on the edge of a refrigerator door. The patient was placed on Bactrim and completed the duration of antibiotics and then follow-up with her PCP who had placed her on another antibiotic as well. Patient is unsure which antibiotic that was. The patient states that the nonhealing wound has been tender and that there is a small amount of light yellow drainage from it. She states that the main stay of treatment she has been doing so far is covering it with a Band-Aid. She has not been using any compression. She denies any signs of systemic infection specifically any redness, warmth, or increase in pain. The patient otherwise denies any fever, chills, nausea, vomiting, shortness of breath, chest pain or pressure, palpitations, orthopnea, lower extremity edema, syncope or presyncopal episodes. Progress of Wound: Wound appears to be healed today with no signs of infection such as increasing pain, drainage, redness, or increase in edema - Physical Exam Vital Signs Temp Pulse Resp BP 98.9 F 72 18 153/85 H 07/24/17 09:40 04/05/18 09:40 07/24/17 09:40 07/24/17 09:40 General: Alert, Oriented x3, Cooperative, No apparent distress Extremities: Capillary Refill Less than 3 Seconds, No Calf Tenderness - Negative Mary and Mcfarland sign bilateral, Diminished Peripheral Pulses, Edema - Generalized bilateral lower extremity edema Skin: Ulcer/ Wound - The ulcer previously present to the right lower extremity in the lateral ankle area appears to be healed today at this time. No signs of local infection appreciated surrounding this area. Wound Measurements and Assessment WC - Nurse 1 - General Ulcer Measurement Start: 07/24/17 09:40 Freq: Status: Active Protocol: Activity Type Activity Date Activity User E-Sign Co-Sign Detail Recorded Client Recorded Date Recorded By Document 07/24/17 09:40 MW [id number] 07/24/17 09:42 MW 07/24/17 09:40 Wound Center Nurse 1 [Ulcer Assessment] #1 RIGHT LATERAL LE -Combined with other wound No -Current Size (cm) - Length 0.1 -Current Size (cm) - Width 0.1 -Current Size (cm) - Depth 0.1 -Total Square Cm 0.01 -Photo Taken No -Epithelialization Large 67-100% -Tunneling No -Undermining/Tunneling No -Circular Undermining No -Exudate Amt None Present (0 %) -Wound Margin Flat & Intact -Granulation Amt None Present (0 %) -Granulation Quality N/A -Slough/Fibrin Yes -Necrosis Amt Small (1-33%) -Necrotic Tissue Type Adherent Slough -Structure Exposed N/A -Texture (Gladys-wound Skin Appearance) Assessed Localized Edema Scarring -Moisture (Gladys-wound Skin Appearance Assessed ) Dry/Scaly -Color (Gladys-wound Skin Appearance) No Abnormality Assessed -Temperature (Gladys-wound Skin No Abnormality Appearance) (Pt Warm) -Tenderness on Palpation (Gladys-wound No Skin Appearance) -Ulcer Cleansing Rinsed/ Irrigated with Saline -Foul Odor after Cleansing No -Anesthetic Used 5% Lidocaine Gel [Edema Assessment] -Lower Limb Edema Present Yes -Right Calf (cm) 41.4 -Point of Measurement (cm from the 20.8 medial instep) WC - Nurse 2 - General Ulcer CM Notes Start: 07/24/17 09:40 Freq: Status: Active Protocol: Activity Type Activity Date Activity User E-Sign Co-Sign Detail Recorded Client Recorded Date Recorded By Document 07/24/17 09:50 MW [id number] 07/24/17 09:56 MW 07/24/17 09:50 Wound Center Nurse 2 [Procedure/Treatment] #1 RIGHT LATERAL LE -Time 09:51 -Correct Patient Yes -Correct Side, Site, Position Yes -Correct Procedure Yes -Procedure Performed Yes -Type of Procedure Debridement -Clinical Debridement Selective -Post Debridement Size (cm) - Length 0 -Post Debridement Size (cm) - Width 0 -Post Debridement Size (cm) - Depth 0 -Total Square Cm 0 -Wound/Ulcer Outcome Healed- Epithelialized -Ulcer Cleansing Rinsed/ Irrigated with Saline -Foul Odor after Cleansing No -Bioengineered Tissue No -Bleeding Controlled with Pressure -Treatment Response Procedure Tolerated Well [See Physician Procedure note for Specifics] Pain Scale: 0-10 Numeric [Pain] -Is Patient Pain Free? Yes Musculoskeletal: Tenderness - Slight tenderness to the area overlying previous ulcer site Neurological: Sensory exam intact to light touch and pain Psych/Mental Status: Normal Affect, Appropriate Debridement Note Post-Debridement Measurements/Treatment WC - Nurse 2 - General Ulcer CM Notes Start: 07/24/17 09:40 Freq: Status: Active Protocol: Activity Type Activity Date Activity User E-Sign Co-Sign Detail Recorded Client Recorded Date Recorded By Document 07/24/17 09:50 MW [id number] 07/24/17 09:56 MW 07/24/17 09:50 Wound Center Nurse 2 #1 RIGHT LATERAL LE -Time 09:51 -Correct Patient Yes -Correct Side, Site, Position Yes -Correct Procedure Yes -Procedure Performed Yes -Type of Procedure Debridement -Clinical Debridement Selective -Post Debridement Size (cm) - Length 0 -Post Debridement Size (cm) - Width 0 -Post Debridement Size (cm) - Depth 0 -Total Square Cm 0 -Wound/Ulcer Outcome Healed- Epithelialized -Ulcer Cleansing Rinsed/ Irrigated with Saline -Foul Odor after Cleansing No -Bioengineered Tissue No -Bleeding Controlled with Pressure -Treatment Response Procedure Tolerated Well Pain Scale: 0-10 Numeric Is Patient Pain Free? Yes Wound debrided: Right lower extremity Laterality: Right Type of Debridement: Selective debridement Depth: Down to and including healthy tissue Percentage of wound debrided: 100 Instrument Used: 3mm curette Tissue Removed: Hyperkeratotic tissue Amount of bleeding with debridement: None Patient tolerated procedure well Assessment/Plan Assessment: Nonhealing ulcer right lateral ankle Plan: This is Anshul Bobo's patient that was seen today in his absence. The patietn was examined and evaluated. A selective debridement was performed today as noted in the clinical panel, which revealed a healed ulcer site. The patient tolerated the procedure well. At this time, the patient will be discharged due to her being healed. She was instrcuted to continue with her compression stockings bilateral and to continue to keep pressure away from the area of previous ulcer as the skin continues to strengthen. No follow up will be scheduled at this time, but the patient and her were instructed to call the wound healing center immediately should they notice the ulcer open back up. This note was generated with [employer] dictation software. It may contain incorrect words, spelling, and punctuation that were not noted in checking the note before signing.
--- NOTE | 2017-07-24 14:46 | PN.PCM_ITS ---
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 Status: Acute Current Visit: No Code(s): L97.912 - Non-pressure chronic ulcer of unspecified part of right lower leg with fat layer exposed Comment: Right lateral ankle (2) Bilateral lower extremity edema Status: Acute Current Visit: No Code(s): R60.0 - Localized edema (3) Decreased pedal pulses Status: Acute Current Visit: No Code(s): R09.89 - Other specified symptoms and signs involving the circulatory and respiratory systems (4) Hypertension Status: Chronic Current Visit: No Qualifiers: Code(s): I10 - Essential (primary) hypertension (5) Obesity, Class II, BMI 35-39.9 Status: Chronic Current Visit: No Code(s): E66.9 - Obesity, unspecified Type of Wound Date of Service: 07/24/17 Chief Complaint: Nonhealing wound right ankle History of Wound: This is a 71-year-old -[place] female with a past medical history of hypertension, palpitations, obesity who presents to the wound healing center today with complaint of a nonhealing ulcer on right lateral ankle ?2 months. The patient presented to [facility] emergency department on 05/10/2017 with complaint of cutting her right lateral ankle open after hitting it on the edge of a refrigerator door. The patient was placed on Bactrim and completed the duration of antibiotics and then follow- up with her PCP who had placed her on another antibiotic as well. Patient is unsure which antibiotic that was. The patient states that the nonhealing wound has been tender and that there is a small amount of light yellow drainage from it. She states that the main stay of treatment she has been doing so far is covering it with a Band-Aid. She has not been using any compression. She denies any signs of systemic infection specifically any redness, warmth, or increase in pain. The patient otherwise denies any fever, chills, nausea, vomiting, shortness of breath, chest pain or pressure, palpitations, orthopnea, lower extremity edema, syncope or presyncopal episodes. Progress of Wound: Wound appears to be healed today with no signs of infection such as increasing pain, drainage, redness, or increase in edema - Physical Exam Vital Signs Temp Pulse Resp BP 98.9 F 72 18 153/85 H 07/24/17 09:40 04/05/18 09:40 07/24/17 09:40 07/24/17 09:40 General: Alert, Oriented x3, Cooperative, No apparent distress Extremities: Capillary Refill Less than 3 Seconds, No Calf Tenderness - Negative Mary and Mcfarland sign bilateral, Diminished Peripheral Pulses, Edema - Generalized bilateral lower extremity edema Skin: Ulcer/ Wound - The ulcer previously present to the right lower extremity in the lateral ankle area appears to be healed today at this time. No signs of local infection appreciated surrounding this area. Wound Measurements and Assessment WC - Nurse 1 - General Ulcer Measurement Start: 07/24/17 09:40 Freq: Status: Active Protocol: Activity Type Activity Date Activity User E-Sign Co-Sign Detail Recorded Client Recorded Date Recorded By Document 07/24/17 09:40 MW [id number] 07/24/17 09:42 MW 07/24/17 09:40 Wound Center Nurse 1 [Ulcer Assessment] #1 RIGHT LATERAL LE -Combined with other wound No -Current Size (cm) - Length 0.1 -Current Size (cm) - Width 0.1 -Current Size (cm) - Depth 0.1 -Total Square Cm 0.01 -Photo Taken No -Epithelialization Large 67-100% -Tunneling No -Undermining/Tunneling No -Circular Undermining No -Exudate Amt None Present (0 %) -Wound Margin Flat & Intact -Granulation Amt None Present (0 %) -Granulation Quality N/A -Slough/Fibrin Yes -Necrosis Amt Small (1-33%) -Necrotic Tissue Type Adherent Slough -Structure Exposed N/A -Texture (Gladys-wound Skin Appearance) Assessed Localized Edema Scarring -Moisture (Gladys-wound Skin Appearance Assessed ) Dry/Scaly -Color (Gladys-wound Skin Appearance) No Abnormality Assessed -Temperature (Gladys-wound Skin No Abnormality Appearance) (Pt Warm) -Tenderness on Palpation (Gladys-wound No Skin Appearance) -Ulcer Cleansing Rinsed/ Irrigated with Saline -Foul Odor after Cleansing No -Anesthetic Used 5% Lidocaine Gel [Edema Assessment] -Lower Limb Edema Present Yes -Right Calf (cm) 41.4 -Point of Measurement (cm from the 20.8 medial instep) WC - Nurse 2 - General Ulcer CM Notes Start: 07/24/17 09:40 Freq: Status: Active Protocol: Activity Type Activity Date Activity User E-Sign Co-Sign Detail Recorded Client Recorded Date Recorded By Document 07/24/17 09:50 MW [id number] 07/24/17 09:56 MW 07/24/17 09:50 Wound Center Nurse 2 [Procedure/Treatment] #1 RIGHT LATERAL LE -Time 09:51 -Correct Patient Yes -Correct Side, Site, Position Yes -Correct Procedure Yes -Procedure Performed Yes -Type of Procedure Debridement -Clinical Debridement Selective -Post Debridement Size (cm) - Length 0 -Post Debridement Size (cm) - Width 0 -Post Debridement Size (cm) - Depth 0 -Total Square Cm 0 -Wound/Ulcer Outcome Healed- Epithelialized -Ulcer Cleansing Rinsed/ Irrigated with Saline -Foul Odor after Cleansing No -Bioengineered Tissue No -Bleeding Controlled with Pressure -Treatment Response Procedure Tolerated Well [See Physician Procedure note for Specifics] Pain Scale: 0-10 Numeric [Pain] -Is Patient Pain Free? Yes Musculoskeletal: Tenderness - Slight tenderness to the area overlying previous ulcer site Neurological: Sensory exam intact to light touch and pain Psych/Mental Status: Normal Affect, Appropriate Debridement Note Post-Debridement Measurements/Treatment WC - Nurse 2 - General Ulcer CM Notes Start: 07/24/17 09:40 Freq: Status: Active Protocol: Activity Type Activity Date Activity User E-Sign Co-Sign Detail Recorded Client Recorded Date Recorded By Document 07/24/17 09:50 MW [id number] 07/24/17 09:56 MW 07/24/17 09:50 Wound Center Nurse 2 #1 RIGHT LATERAL LE -Time 09:51 -Correct Patient Yes -Correct Side, Site, Position Yes -Correct Procedure Yes -Procedure Performed Yes -Type of Procedure Debridement -Clinical Debridement Selective -Post Debridement Size (cm) - Length 0 -Post Debridement Size (cm) - Width 0 -Post Debridement Size (cm) - Depth 0 -Total Square Cm 0 -Wound/Ulcer Outcome Healed- Epithelialized -Ulcer Cleansing Rinsed/ Irrigated with Saline -Foul Odor after Cleansing No -Bioengineered Tissue No -Bleeding Controlled with Pressure -Treatment Response Procedure Tolerated Well Pain Scale: 0-10 Numeric Is Patient Pain Free? Yes Wound debrided: Right lower extremity Laterality: Right Type of Debridement: Selective debridement Depth: Down to and including healthy tissue Percentage of wound debrided: 100 Instrument Used: 3mm curette Tissue Removed: Hyperkeratotic tissue Amount of bleeding with debridement: None Patient tolerated procedure well Assessment/Plan Assessment: Nonhealing ulcer right lateral ankle Plan: This is Anshul Bobo's patient that was seen today in his absence. The patietn was examined and evaluated. A selective debridement was performed today as noted in the clinical panel, which revealed a healed ulcer site. The patient tolerated the procedure well. At this time, the patient will be discharged due to her being healed. She was instrcuted to continue with her compression stockings bilateral and to continue to keep pressure away from the area of previous ulcer as the skin continues to strengthen. No follow up will be scheduled at this time, but the patient and her were instructed to call the wound healing center immediately should they notice the ulcer open back up. This note was generated with [employer] dictation software. It may contain incorrect words, spelling, and punctuation that were not noted in checking the note before signing.
== END 2017-08-18 23:59 ==
LOC: WC 08:18
PROVIDERS: Family Provider Family Medicine Geriatric Medicine; PCP Family Medicine Geriatric Medicine; Visit Provider Podiatrist
DX: L97.312 Non-pressure chronic ulcer of right ankle with fat layer exposed (principal); I10 Essential (primary) hypertension; R60.0 Localized edema; R09.89 Other specified symptoms and signs involving the circulatory and respiratory systems; E66.9 Obesity, unspecified; Z68.41 Body mass index [BMI] 40.0-44.9, adult; Z71.3 Dietary counseling and surveillance
CPT/HCPCS: 97597

== ENCOUNTER → 2017-09-09 10:51 | Outpatient (CLI) | payer MEDICARE, OTHER, SELFPAY ==
[2017-09-09 12:25] LABS: Absolute Lymphocyte Count 1.63 X10^3/ul (0.83-4.51); Absolute Neutrophil Count 3.5 X10^3/uL (2.0-7.7); Basophil# 0.05 X10^3/uL; Basophil% 0.9 % (0-1); Eosinophil# 0.14 X10^3/uL; Eosinophils% 2.4 % (0-5); Hematocrit 39.3 % (37-47); Lymphocyte # 1.63 X10^3/ul (4.0); Lymphocyte % 28.4 % (19-41); Mean Corp Hgb Conc 33.1 g/gl (32-36); Mean Corpuscular Hgb 30.1 pg (27.0-32.0); Mean Platelet Vol. 10.2 fl (6.2-12.0); Monocyte# 0.41 X10^3/uL; Monocyte% 7.2 % (0-10); Neutrophil # 3.49 X10^3/uL (2.7-7.7); Neutrophil % 60.9 % (47-70); Platelet Count 207 K/mm3 (150-450); RBC Distribution Width CV 14.9 % (11.6-14.6); RBC Distribution Width SD 48.6 fl (35.1-43.9); Red Blood Count 4.32 M/mm3 (4.2-5.4); White Blood Count 5.7 K/mm3 (4.4-11.0)
[2017-09-09 12:36] LABS: POSITIVE COUNT NO; POSITIVE DIFFERENTIAL NO; POSITIVE MORPHOLOGY NO
[2017-09-09 12:44] LABS: ALB/GLOB Ratio 0.8 RATIO (0.9-2.4); AST(SGOT) 18 U/L (15-37); Alanine Aminotransfer ALT/SGPT 27 U/L (13-56); Albumin, Serum 3.5 g/dL (3.2-5.0); Alkaline Phosphatase 89 U/L (45-117); Anion Gap 5 (5-15); BUN 19 mg/dL (7-18); BUN/Creat Ratio 19.1 RATIO (10-20); Calcium,Total 9.1 mg/dL (8.5-10.1); Chloride 107 mmol/L (98-107); Creatinine, Serum 0.99 mg/dL (0.55-1.02); EST Glomerular Filtration Rate 58 mL/min (>60); Est Glom Filt Rate - Afr Amer 71 mL/min (>60); Globulin 4.5 g/dL (2.2-4.2); Glucose 87 mg/dL (74-106); Potassium 3.8 mmol/L (3.5-5.1); Sodium Level 140 mmol/L (136-145); Thyroid Stim Hormone (TSH) 0.97 uIU/mL (0.358-3.74)
[2017-09-10 10:54] LABS: Vitamin D,25 Hydroxy 23.7 ng/mL (29.95-100.01)
== END ==
PROVIDERS: Family Provider Family Medicine Geriatric Medicine; PCP Family Medicine Geriatric Medicine; Visit Provider Family Medicine Geriatric Medicine
DX: E55.9 Vitamin D deficiency, unspecified (principal); I10 Essential (primary) hypertension
CPT/HCPCS: 36415; 80053; 82306; 84443; 85025

== ENCOUNTER → 2018-01-09 12:18 | Outpatient (CLI) | payer MEDICARE, OTHER, SELFPAY | PROVIDERS: Family Provider Family Medicine Geriatric Medicine; PCP Family Medicine Geriatric Medicine; Visit Provider Family Medicine Geriatric Medicine | DX: R69 Illness, unspecified (principal) | CPT/HCPCS: 87633 ==

== ENCOUNTER → 2018-03-11 10:00 | Outpatient (CLI) | payer MEDICARE, OTHER, SELFPAY ==
[2018-03-11 13:03] LABS: Absolute Lymphocyte Count 2.03 X10^3/ul (0.83-4.51); Absolute Neutrophil Count 3.8 X10^3/uL (2.0-7.7); Basophil# 0.04 X10^3/uL; Basophil% 0.6 % (0-1); Eosinophil# 0.13 X10^3/uL; Hematocrit 41.8 % (37-47); Hemoglobin 13.3 g/dl (12.0-15.0); Lymphocyte # 2.03 X10^3/ul (4.0); Lymphocyte % 31.1 % (19-41); Mean Corp Hgb Conc 31.8 g/gl (32-36); Mean Corpuscular Hgb 29.7 pg (27.0-32.0); Mean Corpuscular Volume 93.3 fL (81-99); Mean Platelet Vol. 10.9 fl (6.2-12.0); Monocyte% 7.7 % (0-10); Neutrophil # 3.81 X10^3/uL (2.7-7.7); Neutrophil % 58.3 % (47-70); Platelet Count 194 K/mm3 (150-450); RBC Distribution Width CV 15.2 % (11.6-14.6); RBC Distribution Width SD 52.1 fl (35.1-43.9); Red Blood Count 4.48 M/mm3 (4.2-5.4); White Blood Count 6.5 K/mm3 (4.4-11.0)
[2018-03-11 13:23] LABS: Vitamin D,25 Hydroxy 19.3 ng/mL (29.95-100.01)
[2018-03-11 13:27] LABS: ALB/GLOB Ratio 0.8 RATIO (0.9-2.4); AST(SGOT) 16 U/L (15-37); Albumin, Serum 3.5 g/dL (3.2-5.0); Alkaline Phosphatase 97 U/L (45-117); BUN 16 mg/dL (7-18); BUN/Creat Ratio 15.7 RATIO (10-20); Calcium,Total 8.9 mg/dL (8.5-10.1); Creatinine, Serum 1.02 mg/dL (0.55-1.02); EST Glomerular Filtration Rate 57 mL/min (>60); Est Glom Filt Rate - Afr Amer 68 mL/min (>60); Globulin 4.6 g/dL (2.2-4.2); Glucose 82 mg/dL (74-106); Protein, Total 8.1 g/dL (6.4-8.2)
[2018-03-11 13:28] LABS: Alanine Aminotransfer ALT/SGPT 33 U/L (13-56); Anion Gap 6 (5-15); Chloride 106 mmol/L (98-107); Potassium 3.8 mmol/L (3.5-5.1); Sodium Level 139 mmol/L (136-145); Thyroid Stim Hormone (TSH) 1.94 uIU/mL (0.358-3.74)
[2018-03-11 14:08] LABS: POSITIVE COUNT NO; POSITIVE DIFFERENTIAL NO; POSITIVE MORPHOLOGY NO
== END ==
PROVIDERS: Family Provider Family Medicine Geriatric Medicine; PCP Family Medicine Geriatric Medicine; Visit Provider Family Medicine Geriatric Medicine
DX: E55.9 Vitamin D deficiency, unspecified (principal); I10 Essential (primary) hypertension
CPT/HCPCS: 36415; 80053; 82306; 84443; 85025

== ENCOUNTER → 2018-03-18 09:28 | Outpatient (CLI) | payer MEDICARE, OTHER, SELFPAY ==
--- NOTE | 2018-03-18 09:40 | BD_ITS ---
STUDY: DUAL ENERGY X-RAY ABSORPTIOMETRY / DXA REASON FOR EXAM: Female, 72 years old. The patient is postmenopausal. Loss of height. TECHNIQUE: Bone Mineral Density (BMD) measurements of lumbar spine and bilateral hips were obtained. COMPARISON: Comparison is made with prior examination dated April 20, 2013. FINDINGS: Lumbar Spine (L1-L4): g/cm2 (1.156) / T-score (-0.2) / Z-score (0.8) Findings are suggestive of normal bone density with a low fracture risk. Left Femur Total: g/cm2 (0.949) / T-score (-0.5) / Z-score (0.2) Left Femoral Neck: g/cm2 (0.860) / T-score (-1.3) / Z-score (-0.4) Right Femur Total: g/cm2 (0.927) / T-score (-0.6) / Z-score (0.0) Right Femoral Neck: g/cm2 (0.807) / T-score (-1.7) / Z-score (-0.8) The T-Scores on the most recent prior examination were: Lumbar Spine (L1-L4): There has been worsening of bone density since the previous examination. Left Femur Total: which represents a worsening of 9.4%. Right Femur Total: which represents a worsening of 7.7%. BD/Dexa Bone Density Study IMPRESSION: The patient is considered osteopenic as outlined below according to World Matt Organization (WHO) criteria with a moderate fracture risk. There has been worsening of bone density since the previous examination. Reference Information: The T-score is the number of standard deviations above or below the standard which is normal for young adults at their peak bone mineral density. The World Health Organization (WHO) interprets the T-scores as follows: Above -1 Normal bone density Between -1 and -2.5 Osteopenia Equal to / or below -2.5 Osteoporosis As a practical clinical guideline, osteopenia may be graded as follows: Mild -1 through -1.5 Moderate -1.6 through -2.0 Severe -2.1 through -2.4 The Z-score is the number of standard deviations above or below age-matched controls. A Z-score of less than -1.5 would be considered abnormal. References: 1. NIH Osteoporosis and Related Bone Diseases http://www.osteo.org 2. International Society for Clinical Densitometry http://www.iscd.org 3. National Osteoporosis Foundation http://www.nof.org Electronically Signed: Gary Gregorio MD at 13:18 EST Tel [phone], Service support ,
--- OUTSIDE RECORDS SUMMARY | 2018-05-13 16:42 | XMS RPT_ITS ---
:1945 Author Organization OHIP Support Name Relationship Address Phone R Unavailable Unavailable Unavailable EARL CERDA Unavailable [address] + [address] [place] [address] HOMAR CERDA Unavailable Unavailable + R Unavailable Unavailable Unavailable EARL CERDA Unavailable [address] + [address] [place] [address] HOMAR CERDA Unavailable Unavailable + [place] [address] R Unavailable Unavailable Unavailable EARL CERDA Unavailable [address] + [address] [place] [address] HOMAR CERDA Unavailable Unavailable + EARL CERDA Unavailable [address] + [place] [address] EARL CERDA Unavailable [address] + [place] [address] R Unavailable Unavailable Unavailable EARL CERDA Unavailable [address] + [address] [place] [address] HOMAR CERDA Unavailable NA [phone]~330-2 [place], [place] R Unavailable Unavailable Unavailable EARL CERDA Unavailable [address] + [address] [place] [address] HOMAR CERDA Unavailable NA [phone]~330-2 [place], [place] R Unavailable Unavailable Unavailable EARL CERDA Unavailable [address] + [address] [place] [address] HOMAR CERDA Unavailable NA [phone]~330-2 [place], [place] R Unavailable Unavailable Unavailable EARL CERDA Unavailable [address] + [address] [place] [address] HOMAR CERDA Unavailable NA [phone]~330-2 [place], [place] R Unavailable Unavailable Unavailable EARL CERDA Unavailable [address] + [address] [place] [address] HOMAR CERDA Unavailable NA [phone]~330-2 [place], [place] R Unavailable Unavailable Unavailable EARL CERDA Unavailable [address] + [address] [place] [address] HOMAR CERDA Unavailable NA [phone]~330-2 [place], [place] R Unavailable Unavailable Unavailable EARL CERDA Unavailable [address] + [address] [place] [address] HOMAR CERDA Unavailable NA [phone]~330-2 [place], [place] R Unavailable Unavailable Unavailable EARL CERDA Unavailable [address] + [address] [place] [address] HOMAR CERDA Unavailable NA [phone]~330-2 [place], [place] R Unavailable Unavailable Unavailable EARL CERDA Unavailable [address] + [address] [place] [address] HOMAR CERDA Unavailable NA [phone]~330-2 [place], [place] R Unavailable Unavailable Unavailable EARL CERDA Unavailable [address] + [address] [place] [address] HOMAR CERDA Unavailable NA [phone]~330-2 [place], [place] R Unavailable Unavailable Unavailable EARL CERDA Unavailable [address] + [address] [place] [address] HOMAR CERDA Unavailable NA [phone]~330-2 [place], [place] R Unavailable Unavailable Unavailable EARL CERDA Unavailable [address] + [address] [place] [address] HOMAR CERDA Unavailable NA [phone]~330-2 NA, [place] Care Team Providers Name Role Phone ARTUR MAYS MD Attending Unavailable MIGUEL DE JESUS, DR. CABRAL Primary Care Unavailable Marino Givens Attending Unavailable Miguel, Jan Chi Referring Unavailable Miguel, Jan Chi Primary Care Unavailable Miguel, Jan Chi Primary Care Unavailable Afshin Galan Attending Unavailable Miguel, Jan Chi Attending Unavailable Miguel, Jan Chi Primary Care Unavailable Anshul Bobo MASTER WELDER-C Attending Unavailable Miguel, Jan Chi Primary Care Unavailable Bobo, Anshul MASTER WELDER-C Attending Unavailable Miguel, Jan Chi Primary Care Unavailable Bobo, Anshul MASTER WELDER-C Attending Unavailable Miguel, Jan Chi Primary Care Unavailable Bobo, Anshul MASTER WELDER-C Consulting Unavailable Bobo, Anshul MASTER WELDER-C Attending Unavailable Miguel, Jan Chi Primary Care Unavailable Bobo, Anshul MASTER WELDER-C Consulting Unavailable Bobo, Anshul MASTER WELDER-C Attending Unavailable Miguel, Jan Chi Primary Care Unavailable Bobo, Anshul MASTER WELDER-C Consulting Unavailable Bobo, Anshul MASTER WELDER-C Attending Unavailable Miguel, Jan Chi Primary Care Unavailable Bobo, Anshul MASTER WELDER-C Consulting Unavailable Miguel, Jan Chi Primary Care Unavailable Denys, Austin Attending Unavailable Denys, Austin Attending Unavailable Miguel, Jan Chi Primary Care Unavailable Miguel, Jan Chi Attending Unavailable Miguel, Jan Chi Primary Care Unavailable Miguel, Jan Chi Attending Unavailable Miguel, Jan Chi Referring Unavailable Miguel, Jan Chi Primary Care Unavailable Miguel, Jan Chi Attending Unavailable Miguel, Jan Chi Primary Care Unavailable Miguel, Jan Chi Attending Unavailable Miguel, Jan Chi Primary Care Unavailable PROBLEMS PROBLEMS DATE TYPE CONDITION / CODE ATTENDING STATUS SOURCE Unknown Z78.0 - Asymptomatic Miguel, Jan Chi Active [place] 8 menopausal state / Community Z78.0(ICD-10) Hospital Repository Unknown R69 - Illness, Miguel, Jan Chi Active [place] [facility] unspecified / R69(ICD-10) [facility] Hospital Repository Admitting Left lower quadrant pain DAVON MOSHER, Active [facility] 8 Diagnosis / R10.32(ICD-10) [facility] Repository Unknown Z00.00 - Encounter for Anshul Bobo Active [place] 8 general adult medical MASTER WELDER-C Community examination without Hospital abnormal findings / Repository Z00.00(ICD-10) Unknown R53.83 - Other fatigue / Miguel, Jan Chi Active [place] 8 R53.83(ICD-10) [facility] Hospital Repository Unknown I10 - Essential (primary) Tosha, Marino Active [place] [facility] hypertension / Community I10(ICD-10) Hospital Repository Unknown E78.00 - Pure Tosha, Marino Active [place] 7 hypercholesterolemia, Community unspecified / Hospital E78.00(ICD-10) Repository Unknown E78.0 - Pure Tosha, Marino Active [place] 7 hypercholesterolemia / Community E78.0(ICD-10) Hospital Repository PROCEDURES PROCEDURES No Procedure Records FoundRESULTS RESULTS DEXA BONE DENSITY Observed: 03/18/2018 Status: F Source: [place] STUDY 9:31 AM [facility] REPOSITORY [facility] Imaging Services [address] [place] [address] Dexa Bone Density Study MR#: [id number] Acct: [id number] Name: MARLA CERDA Rep #: [id number] : 1945 F 72 From: Gary Gregorio MD PCP: Jan Mason MD, Chi Status: REG CLI Study: Dexa Bone Density Study Date of Exam: 03/18/18 Exam# [id number] Ordering Dr: Jan Mason MD STUDY: DUAL ENERGY X-RAY ABSORPTIOMETRY / DXA REASON FOR EXAM: Female, 72 years old. The patient is postmenopausal. Loss of height. TECHNIQUE: Bone Mineral Density (BMD) measurements of lumbar spine and bilateral hips were obtained. COMPARISON: Comparison is made with prior examination dated April 20, 2013. FINDINGS: Lumbar Spine (L1-L4): g/cm2 (1.156) / T-score (-0.2) / Z-score (0.8) Findings are suggestive of normal bone density with a low fracture risk. Left Femur Total: g/cm2 (0.949) / T-score (-0.5) / Z- score (0.2) Left Femoral Neck: g/cm2 (0.860) / T-score (-1.3) / Z- score (-0.4) Right Femur Total: g/cm2 (0.927) / T-score (-0.6) / Z- score (0.0) Right Femoral Neck: g/cm2 (0.807) / T-score (-1.7) / Z-score (-0.8) The T-Scores on the most recent prior examination were: Lumbar Spine (L1-L4): There has been worsening of bone density since the previous examination. Left Femur Total: which represents a worsening of 9.4%. Right Femur Total: which represents a worsening of 7.7%. BD/Dexa Bone Density Study IMPRESSION: The patient is considered osteopenic as outlined below according to World Matt Organization (WHO) criteria with a moderate fracture risk. There has been worsening of bone density since the previous examination. Reference Information: The T-score is the number of standard deviations above or below the standard which is normal for young adults at their peak bone mineral density. The World Health Organization (WHO) interprets the T-scores as follows: Above -1 Normal bone density Between -1 and -2.5 Osteopenia Equal to / or below -2.5 Osteoporosis As a practical clinical guideline, osteopenia may be graded as follows: Mild -1 through -1.5 Moderate -1.6 through -2.0 Severe -2.1 through -2.4 The Z-score is the number of standard deviations above or below age-matched controls. A Z-score of less than -1.5 would be considered abnormal. References: 1. NIH Osteoporosis and Related Bone Diseases http://www.osteo.org 2. International Society for Clinical Densitometry http://www.iscd.org 3. National Osteoporosis Foundation http://www.nof.org Electronically Signed: Gary Gregorio MD at 13:18 EST Tel [phone], Service support , CC: Jan Mason MD Stroboscope Operator: Signed VITAMIN D,25 HYDROXY Collected: 03/11/2018 Status: F Source: [place] 10:01 AM [facility] REPOSITORY TYPE CODE TESTS RESULT OUT OF REFERENCE UNITS RANGE LAB L506.1000 29.95-100.01 ng/mL Low Vitamin D 19.3 25-OH Result Comment: Vitamin D 25(OH) Status Range Deficiency <20 ng/mL (50nmol/L) Insuffciency 20 - 30 ng/mL (50 - 75 nmol/L) Sufficiency 30 - 100 ng/mL (75 - 250 nmol/L) Toxicity >100 ng/mL (>250 nmol/L) Performed By: #### L506.1000 #### [facility] [address] [place], [address] COMPREHENSIVE METABOLIC Collected: 03/11/2018 Status: F Source: [place] [facility] 10:01 AM [facility] REPOSITORY TYPE CODE TESTS RESULT OUT OF RANGE REFERENCE UNITS LAB L501.0100 74-106 mg/dL Normal GLU 82 Result Comment: Please note revised GLUCOSE reference range effective 2017. LAB L501.1000 7-18 mg/dL Normal BUN 16 LAB L501.1100 0.55-1.02 mg/dL Normal CREAT,SERUM 1.02 Result Comment: The validity of the calculated GFR AND GFRAA in patients over 70 years has not been determined. Clinical correlation is essential. LAB L501.1110 >60 mL/min Low EST GFR 57 Result Comment: Non- GFR Calc LAB L501.1115 >60 mL/min Normal EST GFR - AA 68 Result Comment: GFR Calc LAB L501.1300 10-20 RATIO Normal BUN/CRE 15.7 LAB L501.1500 6.4-8.2 g/dL T Normal PROT 8.1 LAB L501.1800 3.2-5.0 g/dL Normal ALB 3.5 LAB L501.1950 2.2-4.2 g/dL High GLOB 4.6 LAB L501.2000 0.9-2.4 RATIO Low A/G 0.8 LAB L501.2200 8.5-10.1 mg/dL CA Normal 8.9 LAB L501.4100 15-37 U/L Normal AST 16 LAB L501.4305 45-117 U/L Normal ALK P 97 LAB L501.4405 13-56 U/L Normal ALT 33 LAB L501.4600 0.20-1.00 mg/dL T Normal BILI 0.30 LAB L501.5300 136-145 mmol/L NA Normal 139 LAB L501.5600 3.5-5.1 mmol/L K Normal 3.8 LAB L501.5900 98-107 mmol/L CL Normal 106 LAB L501.6100 21.0-32.0 mmol/L Normal CO2 27.0 LAB L501.6200 5-15 Normal GAP 6 Performed By: #### L500.4050, L501.9520 #### [facility] [address] [place], [place], [address] THYROID STIM HORMONE Collected: 03/11/2018 Status: F Source: [place] (TSH) 10:01 AM [facility] REPOSITORY TYPE CODE TESTS RESULT OUT OF RANGE REFERENCE UNITS LAB L501.9520 0.358-3.74 uIU/mL Normal TSH 1.94 Performed By: #### L500.4050, L501.9520 #### [facility] [address] [place], [address] CBC W/DIFF, AUTOMATED Collected: 03/11/2018 Status: F Source: [place] 10:01 AM [facility] REPOSITORY TYPE CODE TESTS RESULT OUT OF RANGE REFERENCE UNITS LAB L100.1000 4.4-11.0 K/mm3 Normal WBC 6.5 LAB L100.1200 4.2-5.4 M/mm3 Normal RBC 4.48 LAB L100.1300 12.0-15.0 g/dl Normal HGB 13.3 LAB L100.1400 37-47 % Normal HCT 41.8 LAB L100.1500 81-99 fL Normal MCV 93.3 LAB L100.1600 27.0-32.0 pg Normal MCH 29.7 LAB L100.1700 32-36 g/gl Low MCHC 31.8 LAB L100.1810 11.6-14.6 % High RDW CV 15.2 LAB L100.1820 35.1-43.9 fl High RDW SD 52.1 LAB L100.1900 150-450 K/mm3 Normal PLT 194 LAB L100.2000 6.2-12.0 fl Normal MPV 10.9 LAB L100.2100 47-70 % Normal NEUT% 58.3 LAB L100.2200 19-41 % Normal LY% 31.1 LAB L100.2300 0-10 % Normal MONO% 7.7 LAB L100.2400 0-5 % Normal EO% 2.0 LAB L100.2500 0-1 % Normal BASO% 0.6 LAB L100.2550 0.0-0.9 % Normal IM GRAN % 0.300 Result Comment: IG% - Immature Granulocytes (promyelocytes, myelocytes and metamyelocytes) > 1% indicates that a LEFT SHIFT is Present. LAB L100.2620 2.0-7.7 X10 3/uL Normal Absolute Neut 3.8 LAB L100.2720 0.83-4.51 X10 3/ul Normal Absolute Lymph 2.03 Performed By: #### L100.0100 #### [facility] [address] [place], [address] Observed: 01/09/2018 Status: F Source: [place] RESPIRATORY PANEL 12:30 PM [facility] MOLECULAR REPOSITORY NASAL SWAB RP PANEL RP PANEL Normal Reference Range = Not Detected Copy of report sent to Infection Control Printer MS#[id number] 01/09/18 1528 TOÑITO. RESULTS CALLED TO NURSE LINE 01/09/18 1526 Alicia Morales. ADENOVIRUS Not Detected HUMAN METAPHNEUMO Not Detected INFLUENZA A Not Detected INFLUENZA A (SUBTYPE H1) Not Detected INFLUENZA A (SUBTYPE H3) Not Detected INFLUENZA B Not Detected PARAINFLUENZA 1 Not Detected PARAINFLUENZA 2 Not Detected PARAINFLUENZA 3 Not Detected PARAINFLUENZA 4 Not Detected RHINOVIRUS Positive for RHINOVIRUS by NAAT technology RSV A Not Detected RSV B Not Detected NAAT METHOD Testing was performed using nucleic acid amplification ORGANISM 1: RHINOVIRUS Performed By: #### M100.638 #### [facility] [address] [place], [address] UA Collected: 12/18/2017 Status: F Source: [email or web address] 2:28 PM [facility] REPOSIT[facility] TYPE CODE TESTS RESULT OUT OF RANGE REFERENCE UNITS LAB SPCUA(ASIM NC) UA Specimen Type Not Given LAB CLRUA(ASIM NC) UA Color Yellow LAB APPUA(ASIM Clear NC) UA Appear Clear LAB SGUA(LOIN C) UA Spec Grav 1.020 LAB GLUA(LOIN Negative mg/dL C) UA Glucose Negative LAB BILUA(ASIM Negative NC) UA Bili Negative LAB KETUA(ASIM Negative mg/dL NC) UA Ketones Negative LAB BLDUA(ASIM Negative NC) UA Blood Unknown Hemolyzed-Tra ce LAB PHUA(LOIN C) UA pH 5.0 LAB PROUA(ASIM Negative mg/dL NC) UA Protein Negative LAB UROUA(ASIM E.U./dL NC) UA Urobilinogen 0.2 LAB NITUA(ASIM Negative NC) UA Nitrite Negative LAB LEUUA(ASIM Negative NC) UA Leuk Est Negative Performed By: #### UA, UAMICAO #### [id number] [place], [place] [address] .URINALYSIS MICROSCOPIC Collected: 12/18/2017 Status: F Source: [place] () 2:28 PM [facility] REPOSITORY TYPE CODE TESTS RESULT OUT OF RANGE REFERENCE UNITS LAB WBCUA(LOIN None Seen /hpf C) UA WBC None Seen LAB RBCUA(LOIN None Seen /hpf C) UA RBC None Seen LAB EPIUA(LOIN None Seen /hpf C) Unknown UA Squam Epithelial 0-5 Performed By: #### UA, UAMICAO #### [address] [address] Observed: 12/18/2017 Status: F Source: [facility] 2:28 PM [facility] REPOSITORY . MICRO - Microbiology PROCEDURE: Urine Culture [*1] SOURCE: Urine BODY SITE: COLLECTED DATE/TIME: 12/18/2017 14:28 EDT RECEIVED DATE/TIME: 12/19/2017 14:26 EDT START DATE/TIME: 12/19/2017 14:27 EDT FREE TEXT SOURCE: FINAL REPORTS Final Report [] Verified Date/Time/Personnel: 12/21/2017 08:46 EDT >100,000 organisms per mL Escherichia coli PRELIMINARY REPORTS Preliminary Report [] Verified Date/Time/Personnel: 12/20/2017 08:23 EDT >100,000 organisms per mL Gram Negative Rods Final identification and LIANNE to follow. SUSCEPTIBILITY RESULTS Escherichia coli Antibiotic LIANNE Dilutn LIANNE Interp Ampicillin >16 Resistant Cefazolin <=8 Susceptible Ciprofloxacin >4 Resistant Gentamicin <=4 Susceptible Levofloxacin >4 Resistant Meropenem <=1 Susceptible Nitrofurantoin <=32 Susceptible Piperacillin/ <=16 Susceptible Tazobactam Trimethoprim/ <=2/38 Susceptible Sulfa Performing Locations *1: This test was performed at: [facility], [address] [place] [address], [address] , [place] Performed By: #### CUR #### [address] [address] CBC W/DIFF, AUTOMATED Collected: 09/09/2017 Status: F Source: [place] 10:52 AM [facility] REPOSITORY TYPE CODE TESTS RESULT OUT OF RANGE REFERENCE UNITS LAB L100.1000 4.4-11.0 K/mm3 Normal WBC 5.7 LAB L100.1200 4.2-5.4 M/mm3 Normal RBC 4.32 LAB L100.1300 12.0-15.0 g/dl Normal HGB 13.0 LAB L100.1400 37-47 % Normal HCT 39.3 LAB L100.1500 81-99 fL Normal MCV 91.0 LAB L100.1600 27.0-32.0 pg Normal MCH 30.1 LAB L100.1700 32-36 g/gl Normal MCHC 33.1 LAB L100.1810 11.6-14.6 % High RDW CV 14.9 LAB L100.1820 35.1-43.9 fl High RDW SD 48.6 LAB L100.1900 150-450 K/mm3 Normal PLT 207 LAB L100.2000 6.2-12.0 fl Normal MPV 10.2 LAB L100.2100 47-70 % Normal NEUT% 60.9 LAB L100.2200 19-41 % Normal LY% 28.4 LAB L100.2300 0-10 % Normal MONO% 7.2 LAB L100.2400 0-5 % Normal EO% 2.4 LAB L100.2500 0-1 % Normal BASO% 0.9 LAB L100.2550 0.0-0.9 % Normal IM GRAN % 0.200 Result Comment: IG% - Immature Granulocytes (promyelocytes, myelocytes and metamyelocytes) > 1% indicates that a LEFT SHIFT is Present. LAB L100.2620 2.0-7.7 X10 3/uL Normal Absolute Neut 3.5 LAB L100.2720 0.83-4.51 X10 3/ul Normal Absolute Lymph 1.63 Performed By: #### L100.0100 #### [facility] [address] [place], [address] COMPREHENSIVE METABOLIC Collected: 09/09/2017 Status: F Source: [place] 10:52 AM [facility] REPOSITORY TYPE CODE TESTS RESULT OUT OF RANGE REFERENCE UNITS LAB L501.0100 74-106 mg/dL Normal GLU 87 Result Comment: Please note revised GLUCOSE reference range effective 2017. LAB L501.1000 7-18 mg/dL High BUN 19 LAB L501.1100 0.55-1.02 mg/dL Normal CREAT,SERUM 0.99 Result Comment: The validity of the calculated GFR AND GFRAA in patients over 70 years has not been determined. Clinical correlation is essential. LAB L501.1110 >60 mL/min Low EST GFR 58 Result Comment: Non- GFR Calc LAB L501.1115 >60 mL/min Normal EST GFR - AA 71 Result Comment: GFR Calc LAB L501.1300 10-20 RATIO Normal BUN/CRE 19.1 LAB L501.1500 6.4-8.2 g/dL T Normal PROT 8.0 LAB L501.1800 3.2-5.0 g/dL Normal ALB 3.5 LAB L501.1950 2.2-4.2 g/dL High GLOB 4.5 LAB L501.2000 0.9-2.4 RATIO Low A/G 0.8 LAB L501.2200 8.5-10.1 mg/dL CA Normal 9.1 LAB L501.4100 15-37 U/L Normal AST 18 LAB L501.4305 45-117 U/L Normal ALK P 89 LAB L501.4405 13-56 U/L Normal ALT 27 LAB L501.4600 0.20-1.00 mg/dL T Normal BILI 0.40 LAB L501.5300 136-145 mmol/L NA Normal 140 LAB L501.5600 3.5-5.1 mmol/L K Normal 3.8 LAB L501.5900 98-107 mmol/L CL Normal 107 LAB L501.6100 21.0-32.0 mmol/L Normal CO2 28.0 LAB L501.6200 5-15 Normal GAP 5 Performed By: #### L500.4050, L501.9520 #### [facility] [address] [place], [address] THYROID STIM HORMONE Collected: 09/09/2017 Status: F Source: [place] (TSH) 10:52 AM [facility] REPOSITORY TYPE CODE TESTS RESULT OUT OF RANGE REFERENCE UNITS LAB L501.9520 0.358-3.74 uIU/mL Normal TSH 0.97 Performed By: #### L500.4050, L501.9520 #### [facility] [address] [place], [address] VITAMIN D,25 HYDROXY Collected: 09/09/2017 Status: F Source: [place] 10:52 AM [facility] REPOSITORY TYPE CODE TESTS RESULT OUT OF REFERENCE UNITS RANGE LAB L506.1000 29.95-100.01 ng/mL Low Vitamin D 23.7 25-OH Result Comment: Vitamin D 25(OH) Status Range Deficiency <20 ng/mL (50nmol/L) Insuffciency 20 - 30 ng/mL (50 - 75 nmol/L) Sufficiency 30 - 100 ng/mL (75 - 250 nmol/L) Toxicity >100 ng/mL (>250 nmol/L) Performed By: #### L506.1000 #### [facility] [address] [place], [address] LOWER EXT ARTERIAL Observed: 06/28/2017 Status: F Source: [place] STUDY 8:37 AM [facility] REPOSITORY [facility] Cardiovascular Services [address] [place] [address] 06/28/17 0834 MR#: [id number] Acct: [id number] Name: MARLA CERDA Rep #: [id number] : 1945 71 From: Diaz Quispe MD Attending Dr: Jihan SELFAnshul Status: REG CLI Ordering Dr: Date: 06/28/17 Location: [facility] Sex: F AA Admitted: Arterial Study - Arterial Study Arterial Study: This is a 71-year-old female with a history of hypertension. She presents with a chronic nonhealing wound of the right lower extremity. Suspecting the presence of atherosclerotic peripheral arterial occlusive disease, the patient was brought to the noninvasive vascular laboratory at this time for the purpose of bilateral noninvasive lower extremity arterial assessment. Doppler signal assessment was used to evaluate the pulses at ankle level bilaterally. The posterior tibial and dorsalis pedis pulses were triphasic bilaterally. Segmental limb pressures were obtained at ankle level bilaterally. The right ankle pressure, as determined by posterior tibial pulse, was measured at 201 mmHg. The right ankle pressure, as determined by dorsalis pedis pulse, was measured at 171 mmHg. The left ankle pressure, as determined by posterior tibial pulse, was measured at 187 mmHg. The left ankle pressure, as determined by dorsalis pedis pulse, was measured at 174 mmHg. Pulse-volume recordings were obtained bilaterally and segmentally. Waveform amplitudes appeared to be satisfactory at low thigh, calf, and ankle levels bilaterally, though diminished at digital levels bilaterally. Resting ankle-brachial indices were calculated bilaterally. The resting right ankle-brachial index was calculated to be 1.29. The resting left ankle-brachial index was calculated to be 1.20. Impression: Based upon the findings of this resting noninvasive lower extremity arterial study, there is no evidence of significant atherosclerotic peripheral arterial occlusive disease in the lower extremities bilaterally. Triphasic waveforms are noted at ankle level bilaterally. Resting ankle-brachial indices are bilaterally normal. 06/28/1737 <Electronically signed by Diaz Quispe MD> Date Diaz Quispe MD CC: Jan Mason MD Date Dictated: 06/28/17833 Date Transcribed: 06/28/17833 Stroboscope Operator: MICHAEL Leigh VENOUS DUPLEX LOWER Observed: 06/27/2017 Status: F Source: [place] EXTREMITY 9:57 PM [facility] REPOSITORY [facility] Cardiovascular Services [address] [place] [address] Venous Duplex US - Sergio Extrem 06/27/17 1022 MR#: [id number] Acct: [id number] Name: MARLA CERDA Rep #: [id number] : 1945 71 From: Diaz Quispe MD Attending Dr: Anshul Bobo NP Status: REG CLI Ordering Dr: Anshul Bobo MASTER WELDER-Pastor Date: 06/27/17 Location: [facility] Sex: F AA Admitted: Reason For Study: Non-healing wound RIGHT LEFT CFV is compressible, spontaneous, phasic, CFV is compressible, spontaneous, phasic, competent and demonstrates normal competent, and demonstrates normal augmentation. augmentation. FV is compressible, spontaneous, phasic, FV is compressible, spontaneous, phasic, competent and demonstrates normal competent and demonstrates normal augmentation. augmentation. POP V is compressible, spontaneous, phasic, POP V is compressible, spontaneous, phasic, competent and demonstrates normal competent and demonstrates normal augmentation. augmentation. T/P Trunk is compressible. T/P Trunk is compressible. PTV is compressible. PTV is compressible. RT PerV is compressible. LT PerV is compressible. SFJ is competent SFJ is competent GSV is INCOMPETENT with reflux greater GSV is INCOMPETENT above knee with reflux than .5 sec and diameter of .32 x .30 cm greater than .5 sec and diameter of .32 SSV is INCOMPETENT with reflux greater x .33 cm than .5 sec and diameter of .24 x .22 cm. GSV diminutive below knee unable to assess Procedure SSV is competent. Exam performed in department. A preliminary report was called and/or faxed to [facility]. Interpretation Summary Deep veins of the lower extremities are bilaterally patent and compressible segmentally. There is no evidence of deep vein thrombosis on either side. Valvular competence appears intact within the proximal deep venous systems bilaterally. The greater saphenous veins appear bilaterally patent and compressible segmentally. Sapheno-femoral junctions are bilaterally competent . Segmental valvular incompetence is noted within the greater saphenous veins bilaterally. The left greater saphenous vein is diminutive below the knee. The right small saphenous vein is patent and incompetent. The left small saphenous vein is patent and competent. Ordering Physician: Anshul Bobo Performed By: Jeanette Pruett RVT 06/27/172155 Date Diaz Quispe MD CC: Anshul Bobo NP; Jan Mason MD Date Dictated: 06/27/17 1022 Date Transcribed: 06/27/172155 Stroboscope Operator: Signed WOUND CTR HISTORY Observed: 06/27/2017 Status: F Source: [place] AND PHYSICAL 3:01 PM [facility] REPOSITORY [facility] [address] [place] [address] Wound Ctr History AND Physical 06/26/17 1450 MR#: [id number] Acct: [id number] Name: MARLA CERDA Rep #: [id number] : 1945 71 From: Anshul JAFFEC PCP: Miguel MOSHER,Jan Cisneros Status: REG RCR Y Location: WC 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 Status: Acute Current Visit: Yes Code(s): L97.912 - Non- pressure chronic ulcer of unspecified part of right lower leg with fat layer exposed Comment: Right lateral ankle (2) Bilateral lower extremity edema Status: Acute Current Visit: Yes Code(s): R60.0 - Localized edema (3) Decreased pedal pulses Status: Acute Current Visit: Yes Code(s): R09.89 - Other specified symptoms and signs involving the circulatory and respiratory systems (4) Hypertension Status: Chronic Current Visit: No Qualifiers: Code(s): I10 - Essential (primary) hypertension (5) Obesity, Class II, BMI 35-39.9 Status: Chronic Current Visit: Yes Code(s): E66.9 - Obesity, unspecified History of Present Illness Date of Service: 06/26/17 Chief Complaint: Nonhealing wound right ankle History of Wound: This is a 71-year-old -N[place]ian female with a past medical history of hypertension, palpitations, obesity who presents to the wound healing center today with complaint of a nonhealing ulcer on right lateral ankle 2 months. The patient presented to [facility] emergency department on 05/10/2017 with complaint of cutting her right lateral ankle open after hitting it on the edge of a refrigerator door. The patient was placed on Bactrim and completed the duration of antibiotics and then follow-up with her PCP who had placed her on another antibiotic as well. Patient is unsure which antibiotic that was. The patient states that the nonhealing wound has been tender and that there is a small amount of light yellow drainage from it. She states that the main stay of treatment she has been doing so far is covering it with a Band-Aid. She has not been using any compression. She denies any signs of systemic infection specifically any redness, warmth, or increase in pain. The patient otherwise denies any fever, chills, nausea, vomiting, shortness of breath, chest pain or pressure, palpitations, orthopnea, lower extremity edema, syncope or presyncopal episodes. Past Medical History Past Medical History: Chronic Problems (Last Reviewed 04/11/17 @ 10:50 by Marino Givens MD) Edema (Chronic) Palpitations (Chronic) Nonrheumatic mitral (valve) insufficiency (Chronic) Nonrheumatic tricuspid (valve) insufficiency (Chronic) Osteoarthritis (Chronic) Hypertension (Chronic) Obesity, Class II, BMI 35-39.9 (Chronic) Surgical History: appendectomy, cholecystectomy, herniorrhaphy - 1982, rotator cuff repair - 2008 Allergies/Adverse Reactions: Allergies milk Allergy (Unknown, Unverified 05/10/17 22:12) unknown lisinopril Adverse Reaction (Intermediate, Verified 05/10/17 22:12) cough ibuprofen [From Motrin] Adverse Reaction (Mild, Verified 05/10/17 22:12) Other FEET SWELLING naproxen sodium [From Aleve] Adverse Reaction (Mild, Verified 05/10/17 22:12) Swelling SWELLS FEET UP Home Medications: Ambulatory Orders Medication Instructions Recorded Hydrochlorothiazide 25 mg PO DAILY 10/09/13 Irbesartan [Avapro] 300 mg PO DAILY 10/09/13 - Family History Paternal Family History: Family History (Last Reviewed 04/11/17 @ 10:50 by Marino Givens MD) Mother Cancer Hypertension No pertinent history Maternal Family History: Family History (Last Reviewed 04/11/17 @ 10:50 by Marino Givens MD) Mother Cancer Hypertension No pertinent history Lives: Spouse/ Significant Other Smoking Status: Never smoker Tobacco Use: Non-smoker Alcohol: None Review of Systems Constitutional: Denies: Chills, Fever, Weight Change Eyes: Denies: Pain, Vision Change HEENT: Denies: Difficulty Hearing, Difficulty Swallowing, Sinus Congestion Cardiovascular: Denies: Chest Pain, Palpitations Respiratory: Denies: Cough, Shortness of Breath Gastrointestinal: Denies: Diarrhea, Nausea, Vomiting Genitourinary: Denies: Dysuria, Hematuria Skin: Reports: Wounds - See HPI, wound right lower extremity Endocrine: Denies: Heat/ Cold Intolerance, Polydipsia, Polyuria Hematologic/ Lymphatic: Denies: Easy Bruising, Easy Bleeding - Physical Exam Vital Signs Temp Pulse Resp BP 97.7 F L 70 16 173/77 H 06/26/17 13:49 06/26/17 13:49 06/26/17 13:49 06/26/17 13:49 General: Alert, Oriented x3, Cooperative, No apparent distress HEENT: PERRLA, EOMI Oral: Moist Mucosa Neck: Supple, No JVD, Negative Carotid Bruits Lungs: Clear to auscultation Cardiovascular: Regular rate, Regular Rhythm Abdomen: Soft, Non Tender Extremities: No clubbing, No cyanosis, Diminished Peripheral Pulses, Edema - Bilateral lower extremity edema +1 nonpitting, Tenderness - Tenderness around lower extremity ulcer Skin: Ulcer/ Wound - Nonhealing lower extremity ulcer present right lateral ankle, covered with moderate amount of slough and devitalized tissue. Wound Measurements and Assessment WC - Nurse 1 - General Ulcer Measurement Start: 06/26/17 13:48 Freq: Status: Active Protocol: Activity Type Activity Date Activity User E-Sign Co-Sign Detail Recorded Client Recorded Date Recorded By Document 06/26/17 13:49 MW [id number] 06/26/17 13:58 MW Wound Center Nurse 1 [Ulcer Assessment] #1 RIGHT LATERAL LE -Combined with other wound No -Current Size (cm) - Length 0.2 WC - Nurse 2 - General Ulcer CM Notes Start: 06/26/17 13:48 Freq: Status: Active Protocol: Activity Type Activity Date Activity User E-Sign Co-Sign Detail Recorded Client Recorded Date Recorded By Document 06/26/17 14:56 DV [id number] 06/26/17 15:02 DV Wound Center Nurse 2 Musculoskeletal: No Tenderness to Palpation of Joints or Extremities Lymphatic: No Cervical, Supraclavicular, or Inguinal Adenopathy Neurological: Cranial nerves II-XII grossly intact Psych/Mental Status: Normal Affect, Appropriate, Alert and oriented to time, place, person, mood and affect Debridement Note Post-Debridement Measurements/Treatment WC - Nurse 2 - General Ulcer CM Notes Start: 06/26/17 13:48 Freq: Status: Active Protocol: Activity Type Activity Date Activity User E-Sign Co-Sign Detail Recorded Client Recorded Date Recorded By Document 06/26/17 14:56 DV [id number] 06/26/17 15:02 DV Wound Center Nurse 2 #1 RIGHT LATERAL LE -Time 15:00 -Correct Patient Yes -Correct Side, Site, Position Yes Wound debrided: Right lower extremity lateral ankle ulcer Laterality: Right Anesthesia Used: 5% Lidocaine Gel Depth: Down to and including healthy tissue, in the subcutaneous layer Percentage of wound debrided: 100 Instrument Used: 3mm curette Tissue Removed: Slough and devitalized tissue Severity: Fat Layer Exposed Amount of bleeding with debridement: None Patient did not tolerate procedure well Patient was unable to tolerate an effective debridement today due to her pain level and tenderness around the site Assessment/Plan Active Problems (Last Reviewed 04/11/17 @ 10:50 by Marino Givens MD) Bilateral lower extremity edema (Acute) 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 (Acute) Right lateral ankle Decreased pedal pulses (Acute) Obesity, Class II, BMI 35-39.9 (Chronic) Assessment: Nonhealing ulcer right lateral ankle Plan: The patient was seen and examined at the wound center today and was updated on the plan of care. A subcutaneous debridement was performed today. The patient tolerated the procedure fair. The patients wound care will consist of: Applying Santyl daily and covering with gauze, Tubigrip for light compression. Wound cultures were collected. Baseline bloodwork ordered. Vascular studies ordered. Patient educated on the importance of diet on wound healing and instructed to increase protein and vitamin C intake. Patient verbalized understanding. Patient will follow up at wound healing center in one week or sooner if needed. Patient was specifically educated on signs of systemic infection and cellulitis and instructed to seek emergent medical attention if this occurs. This note was generated with homedeco2uation software. It may contain incorrect words, spelling, and punctuation that were not noted in checking the note before signing. The patient's blood pressure was significantly elevated in the office, instructed to follow-up with her applications instructor or PCP to manage this. The patient states that it is elevated due to being anxious about today's office visit. Code Visit Office Visits / Consults: 19935 OV L4 Est 111xxx-113xx: 20078 Alethea subq tissue 20 sq cm/< 06/27/17 1501 <Electronically signed by Anshul GUAJARDO> Date Anshul GUAJARDO CC: Signed CBC W/DIFF, AUTOMATED Collected: 06/26/2017 Status: F Source: AL[facility]DRA 3:20 PM [facility] REPOSITORY TYPE CODE TESTS RESULT OUT OF RANGE REFERENCE UNITS LAB L100.1000 4.4-11.0 K/mm3 Normal WBC 5.1 LAB L100.1200 4.2-5.4 M/mm3 Normal RBC 4.36 LAB L100.1300 12.0-15.0 g/dl Normal HGB 12.9 LAB L100.1400 37-47 % Normal HCT 40.3 LAB L100.1500 81-99 fL Normal MCV 92.4 LAB L100.1600 27.0-32.0 pg Normal MCH 29.6 LAB L100.1700 32-36 g/gl Normal MCHC 32.0 LAB L100.1810 11.6-14.6 % High RDW CV 14.9 LAB L100.1820 35.1-43.9 fl High RDW SD 50.8 LAB L100.1900 150-450 K/mm3 Normal PLT 197 LAB L100.2000 6.2-12.0 fl Normal MPV 10.7 LAB L100.2100 47-70 % Normal NEUT% 54.2 LAB L100.2200 19-41 % Normal LY% 35.3 LAB L100.2300 0-10 % Normal MONO% 7.4 LAB L100.2400 0-5 % Normal EO% 2.5 LAB L100.2500 0-1 % Normal BASO% 0.6 LAB L100.2550 0.0-0.9 % Normal IM GRAN % 0.000 Result Comment: IG% - Immature Granulocytes (promyelocytes, myelocytes and metamyelocytes) > 1% indicates that a LEFT SHIFT is Present. LAB L100.2620 2.0-7.7 X10 3/uL Normal Absolute Neut 2.8 LAB L100.2720 0.83-4.51 X10 3/ul Normal Absolute Lymph 1.81 Performed By: #### L100.0100, L101.9900 #### [facility] [address] [place], [place], [id number] ERYTHROCYTE SED RATE Collected: 06/26/2017 Status: F Source: FILLEY 3:20 PM [facility] REPOSITORY TYPE CODE TESTS RESULT OUT OF RANGE REFERENCE UNITS LAB L102.0000 0-30 mm/hr High SED RATE 45 Performed By: #### L100.0100, L101.9900 #### [facility] [address] [place], [place], [address] COMPREHENSIVE METABOLIC Collected: 06/26/2017 Status: F Source: [facility] 3:20 PM [facility] REPOSITORY TYPE CODE TESTS RESULT OUT OF RANGE REFERENCE UNITS LAB L501.0100 74-106 mg/dL Low GLU 63 Result Comment: Please note revised GLUCOSE reference range effective 2017. LAB L501.1000 7-18 mg/dL Normal BUN 16 LAB L501.1100 0.55-1.02 mg/dL Normal CREAT,SERUM 0.94 Result Comment: The validity of the calculated GFR AND GFRAA in patients over 70 years has not been determined. Clinical correlation is essential. LAB L501.1110 >60 mL/min Normal EST GFR 62 Result Comment: Non- GFR Calc LAB L501.1115 >60 mL/min Normal EST GFR - AA 75 Result Comment: GFR Calc LAB L501.1255 ml/min Normal Estimated CRCL 43.42 LAB L501.1300 10-20 RATIO Normal BUN/CRE 17.0 LAB L501.1500 6.4-8. g/dL Normal 2 T PROT 7.9 LAB L501.1800 3.2-5. g/dL Normal 0 ALB 3.6 LAB L501.1950 2.2-4. g/dL High 2 GLOB 4.3 LAB L501.2000 0.9-2. RATIO Low 4 A/G 0.8 LAB L501.2200 8.5-10 mg/dL Normal .1 CA 9.5 LAB L501.4100 15-37 U/L Normal AST 20 LAB L501.4305 45-117 U/L Normal ALK P 89 LAB L501.4405 13-56 U/L Normal ALT 34 Result Comment: Please note revised ALT reference range effective 2017. LAB L501.4600 0.20-1.00 mg/dL Normal T BILI 0.50 LAB L501.5300 136-145 mmol/L Normal NA 143 LAB L501.5600 3.5-5.1 mmol/L Normal K 3.6 LAB L501.5900 98-107 mmol/L Normal CL 106 LAB L501.6100 21.0-32.0 mmol/L Normal CO2 29.0 LAB L501.6200 5-15 Normal GAP 8 Performed By: #### L500.4050, L506.0500 #### [facility] [address] [place], [address] PREALBUMIN Collected: 06/26/2017 Status: F Source: [place] 3:20 PM [facility] REPOSITORY TYPE CODE TESTS RESULT OUT OF RANGE REFERENCE UNITS LAB L506.0500 20.0-40.0 mg/dL Normal PREALBUMIN 28.9 Performed By: #### L500.4050, L506.0500 #### [facility] [address] [place], [address] HEMOGLOBIN A1C Collected: 06/26/2017 Status: F Source: [place] 3:20 PM [facility] REPOSITORY TYPE CODE TESTS RESULT OUT OF RANGE REFERENCE UNITS LAB L501.9985 4.2-6.3 % Normal HGB A1C 5.0 Performed By: #### L501.9985 #### [facility] [address] [place], [address] Observed: 06/26/2017 Status: F Source: ALESSANDRA CULTURE, DEEP WOUND 3:00 PM [facility] REPOSITORY Gram Stain Gram Stain No White Blood Cells No organisms seen Wound Culture ORGANISM 1: Escherichia coli Amount Growth 1+ ORGANISM 2: Pseudomonas aeroginosa Amount Growth Rare Escherichia coli: REACTION Amoxacillin/Clavulanic Acid $ >=32 R Ampicillin $ >=32 R Ampicillin/Sulbactam $ 16 I Cefazolin $ 16 I Cefepime $ <=1 S Ceftriaxone $ <=1 S Ciprofloxacin $ <=0.25 S ESBL - Ertapenim $$$ <=0.5 S Gentamicin $ <=1 S Imipenem *NF <=0.25 S Levofloxacin $ <=0.12 S Piperacillin/Tazobactam $$ 8 S Tobramycin $ <=1 S Trimethoprim/Sulfametho $ <=20 S (NF) indicates non-formulary drug at [facility]. Approval by Infectious Disease Specialist required before non-formulary drugs may be ordered and/or dispensed. Pseudomonas aeroginosa: REACTION Cefepime $ <=1 S Ceftazidime *NF 2 S Ciprofloxacin $ <=0.25 S Gentamicin $ <=1 S Imipenem *NF <=0.25 S Levofloxacin $ 0.5 S Piperacillin/Tazobactam $$ <=4 S Tobramycin $ <=1 S (NF) indicates non-formulary drug at [facility]. Approval by Infectious Disease Specialist required before non-formulary drugs may be ordered and/or dispensed. Cult, Anaerobic No anaerobic bacteria isolated. Performed By: #### M100.1500 #### [facility] [address] [place] [address], [address] THYROID STIM HORMONE Collected: 05/19/2017 Status: F Source: [place] (TSH) 3:50 PM [facility] REPOSITORY TYPE CODE TESTS RESULT OUT OF RANGE REFERENCE UNITS LAB L501.9520 0.358-3.74 uIU/mL Normal TSH 1.24 Performed By: #### L501.9520 #### [facility] [place], [address] DISCHARGE INSTRUCTION Observed: 05/10/2017 Status: F Source: FIL[place] 10:03 PM [facility] REPOSITORY [facility] Medical Records Department [address] [place] [address] Discharge Instruction 05/10/17 2202 MR#: [id number] Acct: [id number] Name: MARLA CERDA Rep #: [id number] : 1945 71 From: Afshin Galan MD PCP: Jan Mason MD, Chi Status: PRE ER ED Disposition - Plan for ED Patient: Disposition: Home or Assisted Living Chief Complaint: Shortness of Breath Instructions: ED Bronchitis Asthmatic Prescriptions: Smz/Tmp Ds [Bactrim Ds] 1 tab PO BID #14 tab Referrals: Jan Mason Chi, MD [Primary Care Provider] - What to do if you have Problems For any increased pain, shortness of breath, bleeding, nausea or vomiting, chest pain, or any unexpected problems, contact your Primary Care Provider. Call [facility] ([phone]) or report to the closest Emergency Room. Call 911 if necessary. 05/10/172202 <Electronically signed by Afshin Galan MD> Date Afshin Galan MD Cosigner Signature (If Indicated): Date CC: Jan Mason MD EMERGENCY DEPARTMENT Observed: 05/10/2017 Status: F Source: [place] SUMMARY 10:01 PM [facility] REPOSITORY [facility] Medical Records Department [address] [place] [address] Emergency Department Summary 05/10/17 2158 MR#: [id number] Acct: [id number] Name: MARLA CERDA Rep #: [id number] : 1945 71 From: Afshin Galan MD PCP: Jan Mason MD, Chi Status: PRE ER - ER Visit Summary Date of Service: 05/10/17 Chief Complaint: Cut on leg, wheezing History of Present Illness: The patient is a 71 F who presents with the above symptoms. She cut her right leg on a box 2 days ago. She let it go and it started hurting today. She denies any drainage from the area. She did notice some swelling to the area. She also noted some wheezing. She has not had a cough. No fevers. She was recently on prednisone from her primary care physician for bronchitis. Physical Examination: Vital signs reviewed. HEENT exam unremarkable. Heart is regular rate and rhythm. Lungs are clear to auscultation. Abdomen is soft and nontender. She has a 2 cm healing laceration to the right ankle. There is warmth but no erythema. Test Results: None indicated Emergency Department Course and Treatment: Patient will be given albuterol and Bactrim. She will continue both at home and will follow up with her PCP Treatment Plan: [] Disposition: Discharge Impression: Right leg laceration 2 cm, bronchitis This note was generated with homedeco2uation software. It may contain incorrect words, spelling, and punctuation that were not noted in review of the chart prior to signing ED Disposition - Plan for ED Patient: Chief Complaint: Shortness of Breath Referrals: Jan Mason Chi, MD [Primary Care Provider] - What to do if you have Problems For any increased pain, shortness of breath, bleeding, nausea or vomiting, chest pain, or any unexpected problems, contact your Primary Care Provider. Call [facility] ([phone]) or report to the closest Emergency Room. Call 911 if necessary. 05/10/171 <Electronically signed by Afshin Galan MD> Date Afshin Galan MD Cosigner Signature (If Indicated): Date CC: Jan Mason MD CARDIOLOGY VISIT Observed: 04/11/2017 Status: F Source: [facility] REPORT 10:55 AM [facility] REPOSITORY [facility] [address] [place] [address] OFFICE VISIT Date of Service: 04/11/17 MR#: [id number] Acct: [id number] Name: MARLA CERDA Rep #: [id number] : 1945 Provider: Marino Givens MD Age/Sex: 71/F Location: [facility] Status: Signed HPI 6 M FU: Chief Complaint: Follow-up Details: MARLA CERDA, is a 71 F who presents to the office today for a follow-up visit. She is a lady with a history of hypertension hyperlipidemia who returns for follow-up visit. Her major complaint at this time is that she gets fatigued and sometimes she gets short of breath with minimal exertion she is also had mild bilateral ankle edema. You do remember that we performed a comprehensive blood work on her and did not demonstrate any significant abnormalities. She has had no dizziness or diaphoresis no near syncope or syncope. Her physical exam today demonstrates clear lung tanner regular rate and rhythm and no pedal edema. Intake Vital Signs04/11/17 Height 5 ft 2 in 04/11/17 Weight: 225 lb 04/11/17 Body Mass Index (BMI) 41.1 04/11/17 Blood Pressure 130/62 04/11/17 Respiratory Rate 18 04/11/17 Pulse Rate 84 Intake Visit Reasons: 6 M FU Allergies milk Allergy (Unknown, Unverified 04/11/17 10:33) unknown lisinopril Adverse Reaction (Intermediate, Verified 04/11/17 10:33) cough ibuprofen [From Motrin] Adverse Reaction (Mild, Verified 04/11/17 10:33) Other naproxen sodium [From Aleve] Adverse Reaction (Mild, Verified 04/11/17 10:33) Swelling Medications Hydrochlorothiazide 25 mg PO DAILY 10/09/13 [History Confirmed 04/10/17] Irbesartan [Avapro] 300 mg PO DAILY 10/09/13 [History Confirmed 04/10/17] Cyanocobalamin [Vitamin B12] 1,000 mcg IM QWEEK 06/23/14 [History Confirmed 04/10/17] Furosemide [Lasix] 40 mg PO QODAY 06/23/14 [History Confirmed 04/10/17] Acetaminophen [Tylenol Tablet] 650 mg PO Q4H PRN PRN #0 tab 07/19/14 [Rx Confirmed 11/21/16] Senna/Docusate Sodium [Senokot-S] 2 tab PO BID PRN 07/25/15 [History Confirmed 11/21/16] Aspirin [Aspirin EC] 81 mg PO DAILY 04/16/16 [History Confirmed 04/10/17] Hydrocodone/Acetaminophen [[place] 5-325 Tablet] 1 ea PO Q6H PRN PRN #10 tab 11/21/16 [Rx] cholecalciferol (vitamin D3) 5,000 unit capsule 5,000 unit PO QDAY 04/10/17 [History Confirmed 04/10/17] dexlansoprazole 30 mg capsule,biphase delayed release 30 mg PO QDAY 04/10/17 [History Confirmed 04/10/17] linaclotide 145 mcg capsule 145 mcg PO QDAY 04/10/17 [History Confirmed 04/10/17] magnesium oxide,aspartate,citrate 400 mg capsule 400 mg PO QDAY ea 04/10/17 [History Confirmed 04/10/17] meclizine 25 mg tablet 25 mg PO TID PRN tab 04/10/17 [History] potassium chloride ER 8 mEq tablet,extended release 8 meq PO BID 04/10/17 [History Confirmed 04/10/17] atorvastatin 10 mg tablet 10 mg PO DAILY #90 tab 04/11/17 [Rx Confirmed 04/11/17] vitamin E mixed 1,000 unit capsule unit PO .OD ea 04/11/17 [History Confirmed 04/11/17] Ejection fraction %: 60 to 64 PFSH Medical History Edema (Chronic) Palpitations (Chronic) Nonrheumatic mitral (valve) insufficiency (Chronic) Nonrheumatic tricuspid (valve) insufficiency (Chronic) Osteoarthritis (Chronic) Hypertension (Chronic) Obesity, Class II, BMI 35-39.9 (Chronic) Surgical History H/O knee surgery (Chronic) Family History Mother Cancer Hypertension Social History Smoking Status: Never smoker ROS Const Const: Positive for fatigue; negative for weakness, difficulty sleeping, frequent falls, headache(s) or excessive sweating Eyes Eyes: Negative for loss of peripheral vision, transient loss of vision, blurry vision or double vision ENT ENT: Negative for headache(s), Negative for dizziness, Negative for Nosebleed/epistaxis, Negative for balance problems Cardio Chest Pain: No Edema: None, Bilateral (Trace BLE ankle edema) Muscle aches with walking: None Resp Respiratory: Positive for SOB with activity (When climbing stairs); negative for SOB at rest, SOB orthopnea\SOB lying down or paroxysmal nocturnal dyspnea GI GI: Negative nausea or heartburn : Negative for hematuria Musc Musc: Negative for muscle aches/ myalgia, muscle weakness, joint pain or balance problems Skin Skin: Negative non-healing lesions, unusual bruising or rash Neuro Neuro: Negative for weakness, Negative for frequent falls, Negative for blurry vision, Negative for headache(s), Negative for dizziness, Negative for lightheadedness, Negative for orthostatic symptoms, Negative for double vision [place] Hematologic/Lymphatic: Negative for easy bruising Endo Endo: Positive for fatigue; negative for excessive sweating or increased thirst/drinking Psych Psych: Negative for anxiety or depression Allergy Allergy/Immunology: Negative for hives, Negative for rash Cardiology Exam Const Appearance: cooperative, healthy appearing, well developed, well groomed and no acute distress Nutritional Appearance: well nourished and average body habitus Orientation: alert, awake and oriented x3 Head Head: normal to inspection, normocephalic and atraumatic Ears: hearing grossly normal bilaterally and external ears normal Nose: external nose normal, nasal mucous membranes and turbinates normal, nares normal, septum normal, no nasal discharge Face and Sinus: face symmetric Mouth: oral mucosae normal, tongue normal, oropharynx normal and moist mucous membranes Teeth and gingiva: dentition normal Throat: posterior oropharynx normal, tonsils normal and uvula midline Eyes General: appearance normal, both eyes and all related structures Eyelids: eyelids normal Conjunctivae: conjunctivae normal Pupils: PERRL, normal by confrontation and accommodation normal EOM: EOM intact bilaterally Neck Neck: normal visual inspection, trachea midline and no JVD JVD: +5 Carotids: normal carotid upstroke and bounding pulses Chest Chest inspection: normal inspection of the chest, symmetric chest movement and normal respiratory effort Auscultation: Bilateral: Clear to Auscultation Cardio Palpation: normal PMI Rate: regular rate Rhythm: regular rhythm Heart sounds: S1 normal, S2 normal and normal, physiologic split S2; negative rub, gallop or murmur GI GI: normal to inspection, soft, no hepatosplenomegaly and bowel sounds present Neuro General: alert, awake, oriented x3, no focal sensory deficit, gait normal and moves all extremities Skin Skin: no rashes or lesions noted Extremities Pulses: Normal: Right Femoral Pulse, Left Femoral Pulse, Right Dorsalis Pedis Pulse, Left Dorsalis Pedis Pulse, Right Posterior Tibial Pulse, Left Posterior Tibial Pulse, Right Radial Pulse, Left Radial Pulse Lower Extremity Edema: None: Bilateral Musculoskel Musculoskeletal: No joint tenderness Psych Psychological: normal affect Assessment AND Plan 1. Essential hypertension I10; I10; I10 Plan Her blood pressure appears to be under excellent control at this time and my recommendations are for us to continue the same medications without making any changes. I have suggested to her that perhaps a sleep study at some point may be helpful if we want to figure out more about her fatigue. 2. Pure hypercholesterolemia E78.00; E78.00; E78.00; E78.0 Plan She is on a low intensity statin which will be continued I would not suggest we make any changes and she tells me that you have been checking these levels. Thank you for allowing me to participate in her care. 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) 04/11/17 1055 <Electronically signed by Marino Givens MD> Date Marino Givens MD Cosigner Signature: Date (if applicable) CC: Jan Mason MD ALLERGIES ALLERGIES DATE TYPE / CODE NAME / CODE REACTION SEVERITY SOURCE 05/10/2017 Drug naproxen Swelling [place] [facility] All[facility]/416 sodium/I0671015 Hospital 857094(SN 81(RXNORM) Repository ED CT) 05/10/2017 Drug lisinopril/F006 cough [place] [facility] Allergy/416 903765(RXNORM) Hospital 110493(SNOM Repository ED CT) 05/10/2017 Drug ibuprofen/F0060 Other [place] [facility] Allergy/416 72901(RXNORM) Hospital 126027(SNOM Repository ED CT) 05/10/2017 Drug milk/[id number] Unknown Unknown [place] [facility] Allergy/416 (RXNORM) Hospital 127869(SNOM Repository ED CT) ENCOUNTERS ENCOUNTERS ADMIT/DISCHARGE ACCOUNT NUMBER ADMITTING ENCOUNTER LOCATION SOURCE CLASS 03/18/2018 [id number] Ambulatory [facility] Hospital ding:OPBD Repository 03/11/2018 [id number] Ambulatory [facility] Hospital ding:POLAB3 Repository 01/09/2018 [id number] Ambulatory [facility] ding:PSN Repository 12/18/2017/12/23/19 [id number] Ambulatory [address] ding:DROP Foundation Repository 09/09/2017 [id number] Ambulatory [facility] Hospital ding:POLAB3 Repository 08/29/2017 [id number] Ambulatory [facility] ding:WC Repository 07/24/2017/08/19/19 [id number] Ambulatory [address] ding:WC Repository 07/17/2017/07/20/19 [id number] Ambulatory [address] ding:WC Repository 07/17/2017 [id number] Ambulatory BMSBuilding: [place] [facility]MS.[facility] Hospital Repository 07/10/2017 [id number] Ambulatory BMSBuilding: [place] BMS.CF.[facility] Hospital Repository 07/03/2017 [id number] Ambulatory BMSBuilding: [place] BMS.CF.[facility] Hospital Repository 06/27/2017 [id number] Ambulatory [facility] Hospital ding:CVS Repository 06/26/2017 [id number] Ambulatory BMSBuilding: [place] BMS.CF.[facility] Hospital Repository 05/19/2017 [id number] Ambulatory [facility] Hospital ding:POLAB3 Repository 05/10/2017/05/10/19 [id number] Emergency [address] ding:ED Repository 04/11/2017/04/11/20 [id number] Ambulatory BMSBuilding: [place] [facility] Hospital Repository PAYERS PAYERS ENCOUNTER GUARANTOR PAYER SUBSCRIBER SOURCE 03/18/2018 MARLA Garcia Primary MARLA [id number] Insurance:MEDICARE SMITHDOB: Community [address] [facility] [id number] Number: Repository [id number]: 330 [id number] [phone] () Date:2018-03-11 03/18/2018 Secondary EARL W [place] Insurance:UNITED HLTH SMITHDOB: Community CARE [id number] Hospital Number: Repository [id number] Date:2706-40-11NB [facility] [id number] [place] [address]EZ: 03/18/2018 Tertiary NOT GIVENUNK [place] Insurance:SELF PAY [facility] Number: Effective Repository Date:2018-03-11 03/11/2018 MARLA Garcia Primary MARLA Garcia [place] [id number] Insurance:MEDICARE SMITHDOB: Community [address] [facility] [id number] Number: Repository [id number]: 330 [id number] [phone] () Date:2018-03-11 03/11/2018 Secondary EARL W [place] Insurance:UNITED HLTH SMITHDOB: Community CARE [id number] Hospital Number: Repository [id number] Date:8594-65-78[address]JZU, [place] [address]TI: 03/11/2018 Tertiary NOT GIVENUNK [place] Insurance:SELF PAY [facility] Number: Effective Repository Date:2018-03-11 01/09/2018 MARLA Garcia Primary MARLA Garcia [place] [id number] Insurance:MEDICARE SMITHDOB: Community [address] A [facility] [id number] Number: Repository [address]Xks: 330 [id number] [phone] () Date:2018-01-09 01/09/2018 Secondary EARL W [place] Insurance:UNITED HLTH SMITHDOB: Community CARE [id number] Hospital Number: Repository [id number] Date:4186-05-41[address], [place] [address]FQ: 01/09/2018 Tertiary NOT GIVENUNK [place] Insurance:SELF PAY [facility] Number: Effective Repository Date:2018-01-09 12/18/2017 [facility] SMITHDOB: [facility] [place] [id number] PART BPolicy Number: [id number] [place] [address] Date:2017-12-[address] [place] [address]2658Xmk: [phone] [phone]: Name:[facility] [phone] ()Tel: ([phone]) Administrators LLCPO () () [address] [address]Gnjzniucx, 000-0000 () [place] [address]KO: 09/09/2017 MARLA Garcia Primary MARLA Mckeonoster [id number] Insurance:MEDICARE SMITHDOB: Community [address] [facility] [id number] Number: Repository [id number]: [phone] [id number] [phone] () Date:2017-09-09 09/09/2017 Secondary EARL W [place] [facility] CARE [id number] Hospital Number: Repository [id number] Date:0489-22-34GV [address], [place] [address]UK: 09/09/2017 Tertiary NOT GIVENUNK [place] Insurance:SELF PAY [facility] Number: Effective Repository Date:2017-09-09 08/29/2017 MARLA Garcia Primary MARLA Aparicio [id number] Insurance:MEDICARE SMITHDOB: Community [address] PART A [facility] [id number] Number: Repository [address]Xmr: 330 [id number] [phone] (HP) Date:2017-06-20 08/29/2017 Secondary EARL W [place] Insurance:UNITED TH SMITHDOB: Community CARE [id number] Hospital Number: Repository [id number] Date:0268-24-28PE [facility] [address]2978WEVGKGV, [place] [address]EV: 08/29/2017 Tertiary NOT GIVENUNK [place] Insurance:SELF PAY Community [facility] Hospital Number: Effective Repository Date:2017-08-19 07/24/2017 MARLA Garcia Primary MARLA Aparicio [id number] Insurance:MEDICARE SMITHDOB: Community [address] PART A [facility] [id number] Number: Repository [address]Caq: 330 [id number] [phone] () Date:2017-06-20 07/24/2017 Secondary EARL W [place] Insurance:UNITED TH SMITHDOB: Community CARE [id number] Hospital Number: Repository [id number] Date:1934-01-17HK [facility] [address]5039IYYFAEQ, [place] [address]GX: 07/24/2017 Tertiary NOT GIVENUNK [place] Insurance:SELF PAY [facility] Number: Effective Repository Date:2017-07-20 07/17/2017 MARLA Garcia Primary MARLA Garcia [place] [id number] Insurance:MEDICARE SMITHDOB: Community [address] PART A [facility] [id number] Number: Repository [address]Cvm: 330 [id number] [phone] () Date:2017-06-20 07/17/2017 Secondary EARL W [place] Insurance:UNITED TH SMITHDOB: Community CARE [id number] Hospital Number: Repository [id number] Date:2723-05-35QZ [facility] 228049YCLGGLQ, [place] [address]WO: 07/17/2017 Tertiary NOT GIVENUNK [place] Insurance:SELF PAY Community [facility] Hospital Number: Effective Repository Date:2017-06-20 07/17/2017 MARLA Garcia Primary MARLA Aparicio [id number] Insurance:MEDICARE SMITHDOB: Community [address] PART A [facility] [id number] Number: Repository [address]Nom: 330 [id number] [phone] () Date:2017-06-20 07/17/2017 Secondary EARL W [place] Insurance:UNITED HLTH SMITHDOB: Community CARE [id number] Hospital Number: Repository [id number] Date:9151-66-74HG [address]OGC, [place] [address]CM: 07/17/2017 Tertiary NOT GIVENUNK [place] Insurance:SELF PAY [facility] Hospital Number: Effective Repository Date:2017-07-17 07/10/2017 MARLA Garcia Primary MARLA Aparicio [id number] Insurance:MEDICARE SMITHDOB: Community [address] A [facility] [id number] [place] Number: Repository [address]Kfp: 330 [id number] [phone] () Date:2017-06-20 07/10/2017 Secondary EARL W [place] Insurance:UNITED HLTH SMITHDOB: Community CARE [id number] Hospital Number: Repository [id number] Date:3956-34-67GX [address]VYAGM, [place] [address]NL: 07/10/2017 Tertiary NOT GIVENUNK [place] Insurance:SELF PAY [facility] Hospital Number: Effective Repository Date:2017-07-10 07/03/2017 MARLA Garcia Primary MARLA Aparicio [id number] Insurance:MEDICARE SMITHDOB: Community [address] PART A [facility] [id number] [place] Number: Repository [address]Vex: 330 [id number] [phone] () Date:2017-06-20 07/03/2017 Secondary EARL W [place] Insurance:UNITED HLTH SMITHDOB: Community CARE [id number] Hospital Number: Repository [id number] Date:8396-12-10XH [address]MQEERPS, [place] [address]XB: 07/03/2017 Tertiary NOT GIVENUNK [place] Insurance:SELF PAY [facility] Number: Effective Repository Date:2017-07-03 06/27/2017 MARLA Garcia Primary MARLA Aparicio [id number] Insurance:MEDICARE SMITHDOB: Community [address] PART A [facility] [id number] Number: Repository [address]Tij: 330 [id number] [phone] () Date:2017-06-26 06/27/2017 Secondary EARL W [place] Insurance:UNITED TH SMITHDOB: Community CARE [id number] Hospital Number: Repository [id number] Date:4822-48-23OM [facility] 154141PW[place]IDQ, [place] [address]PU: 06/27/2017 Tertiary NOT GIVENUNK [place] Insurance:SELF PAY [facility] Number: Effective Repository Date:2017-06-26 06/26/2017 MARLA Garcia Primary MARLA Mckeonoster [id number] Insurance:MEDICARE SMITHDOB: Community [address] A [facility] [id number] [place] Number: Repository [address]Fqe: 330 [id number] [phone] () Date:2017-06-20 06/26/2017 Secondary EARL W [place] Insurance:UNITED TH SMITHDOB: Community CARE [id number] Hospital Number: Repository [id number] Date:3651-81-48HQ [address]WPTM, [place] [address]YJ: 06/26/2017 Tertiary NOT GIVENUNK [place] Insurance:SELF PAY [facility] Hospital Number: Effective Repository Date:2017-06-26 05/19/2017 MARLA Garcia Primary MARLA Mckeonoster [id number] Insurance:MEDICARE SMITHDOB: Community [address] PART A [facility] [id number] Number: Repository [address]Qel: 330 [id number] [phone] () Date:2017-05-19 05/19/2017 Secondary EARL W [place] Insurance:UNITED [facility] SMITHDOB: Community CARE [address] [place] [address] [id number] Hospital Number: Repository [id number] Date:1234-79-89OY [facility] [id number] [place] [address]RH: 05/19/2017 Tertiary NOT GIVENUNK [place] Insurance:SELF PAY [facility] Number: Effective Repository Date:2017-05-19 05/10/2017 MARLA Garcia Primary MARLA Garcia [place] [id number] Insurance:MEDICARE SMITHDOB: Community [address] A [facility] [id number] Number: Repository [address]Tpa: 330 [id number] [phone] () Date:2017-05-10 05/10/2017 Secondary EARL W [place] Insurance:UNITED HLTH SMITHDOB: Community CARE [id number] Hospital Number: Repository [id number] Date:0496-70-35QV [address]LJRIIYF, [place] [address]KJ: 05/10/2017 Tertiary NOT GIVENUNK [place] Insurance:SELF PAY [facility] Hospital Number: Effective Repository Date:2017-05-10 04/11/2017 MARLA Garcia Primary MARLA Garcia [place] [id number] Insurance:MEDICARE SMITHDOB: Community [address] PART A [facility] [id number] Number: Repository [address]Wbl: 330 [id number] [phone] () Date:2017-03-22 04/11/2017 Secondary EARL W [place] Insurance:ANTHEMPolic SMITHDOB: Community y Number: [id number] Hospital [id number] Repository Date:7932-41-38[address]QWEN, [place] [address]KJ: 04/11/2017 Tertiary NOT GIVENTAPAN [place] Insurance:SELF PAY [facility] Number: Effective Repository Date:2017-03-22
== END ==
PROVIDERS: Family Provider Family Medicine Geriatric Medicine; PCP Family Medicine Geriatric Medicine; Visit Provider Family Medicine Geriatric Medicine
DX: Z78.0 Asymptomatic menopausal state (principal)
CPT/HCPCS: 77080

== ENCOUNTER → 2018-05-20 11:56 | Outpatient (CLI) | payer MEDICARE, OTHER, SELFPAY ==
[2018-05-19 10:12] VITALS: BMI 40.6
--- NOTE | 2018-05-20 12:00 | BI_ITS ---
MAMMOGRAPHY - BILATERAL SCREENING REASON FOR EXAM: Female, 72 years old. Routine annual screening examination. PERTINENT HISTORY: Non-contributory. Remote left stereotactic breast biopsy. TECHNIQUE: Digital bilateral breast amie (3D mammographic acquisition) in the CC and MLO projections. 2-D mediolateral oblique (MLO) and craniocaudad (CC) views of both breasts were obtained. CAD: Full Field Digital Mammography with Computer Added Detection was performed. COMPARISON: Comparison is made with prior study dated December 25, 2016 and December 20, 2015. FINDINGS: Breast Composition: The breasts are almost entirely fatty. There are no dominant masses or suspicious calcifications. A tissue clip marker from prior stereotactic biopsy is once again seen in the lateral retroareolar region of the left breast. No other significant abnormalities are identified. There has been no significant change since the prior study. BI/SCREENING MAMM (CAD), BILAT IMPRESSION: Stable bilateral screening mammogram. Yearly follow-up mammogram recommended. (A) ASSESSMENT CATEGORY: BIRADS Category 2: Benign. A letter regarding these results will be sent to the patient by the facility within 30 days. Approximately 10% of breast cancers are not detected by mammography. A normal mammogram should not delay biopsy of a clinically suspicious abnormality. [id number] Electronically Signed: Gary Gregorio MD at 13:54 EST , Service support ,
== END ==
PROVIDERS: Family Provider Family Medicine Geriatric Medicine; PCP Family Medicine Geriatric Medicine; Referring Provider Obstetrics & Gynecology Gynecology; Visit Provider Obstetrics & Gynecology Gynecology
DX: Z12.31 Encounter for screening mammogram for malignant neoplasm of breast (principal)
CPT/HCPCS: 77063; 77067

== ENCOUNTER → 2018-05-29 11:07 | Outpatient (CLI) | payer MEDICARE, OTHER, SELFPAY ==
[2018-05-19 10:12] VITALS: BMI 40.6
[2018-05-29 12:08] LABS: AST(SGOT) 13 U/L (15-37); Alanine Aminotransfer ALT/SGPT 22 U/L (13-56); Albumin, Serum 3.5 g/dL (3.2-5.0); Alkaline Phosphatase 89 U/L (45-117); Bilirubin, Direct 0.11 mg/dL (0.00-0.30); Cholesterol 214 mg/dL (200); Globulin 4.4 g/dL (2.2-4.2); High Density Lipoprotein 70 mg/dL; Protein, Total 7.9 g/dL (6.4-8.2); Triglycerides 71 mg/dL; Very Low Density Lipoprotein 14 mg/dL (5-40)
== END ==
PROVIDERS: Family Provider Family Medicine Geriatric Medicine; PCP Family Medicine Geriatric Medicine; Referring Provider Internal Medicine Cardiovascular Disease; Visit Provider Internal Medicine Cardiovascular Disease
DX: E78.5 Hyperlipidemia, unspecified (principal)
CPT/HCPCS: 36415; 80061; 80076

== ENCOUNTER → 2018-07-07 12:12 | Outpatient (CLI) | payer MEDICARE, OTHER, SELFPAY ==
[2018-05-19 10:12] VITALS: BMI 40.6
== END ==
PROVIDERS: Family Provider Family Medicine Geriatric Medicine; PCP Family Medicine Geriatric Medicine; Referring Provider Family Medicine Geriatric Medicine; Visit Provider Family Medicine Geriatric Medicine
DX: J40 Bronchitis, not specified as acute or chronic (principal)
CPT/HCPCS: 87633

== ENCOUNTER → 2018-09-10 | Outpatient (CLI) | payer MEDICARE, OTHER, SELFPAY ==
[2018-05-19 10:12] VITALS: BMI 40.6
[2018-09-10 12:38] LABS: Absolute Lymphocyte Count 1.58 X10^3/ul (0.83-4.51); Absolute Neutrophil Count 3.6 X10^3/uL (2.0-7.7); Basophil# 0.04 X10^3/uL; Basophil% 0.7 % (0-1); Eosinophil# 0.09 X10^3/uL; Eosinophils% 1.6 % (0-5); Hematocrit 41.8 % (37-47); Hemoglobin 13.7 g/dl (12.0-15.0); Lymphocyte # 1.58 X10^3/ul (4.0); Lymphocyte % 27.4 % (19-41); Mean Corp Hgb Conc 32.8 g/gl (32-36); Mean Corpuscular Hgb 29.6 pg (27.0-32.0); Mean Corpuscular Volume 90.3 fL (81-99); Mean Platelet Vol. 10.5 fl (6.2-12.0); Monocyte# 0.45 X10^3/uL; Monocyte% 7.8 % (0-10); Neutrophil # 3.58 X10^3/uL (2.7-7.7); Neutrophil % 62.2 % (47-70); Platelet Count 212 K/mm3 (150-450); RBC Distribution Width SD 49.6 fl (35.1-43.9); Red Blood Count 4.63 M/mm3 (4.2-5.4); White Blood Count 5.8 K/mm3 (4.4-11.0)
[2018-09-10 12:43] LABS: POSITIVE COUNT NO; POSITIVE DIFFERENTIAL NO; POSITIVE MORPHOLOGY NO
[2018-09-10 13:07] LABS: Vitamin D,25 Hydroxy 27.4 ng/mL (29.95-100.01)
[2018-09-10 13:34] LABS: ALB/GLOB Ratio 0.8 RATIO (0.9-2.4); AST(SGOT) 17 U/L (15-37); Alanine Aminotransfer ALT/SGPT 30 U/L (13-56); Albumin, Serum 3.4 g/dL (3.2-5.0); Alkaline Phosphatase 87 U/L (45-117); Anion Gap 7 (5-15); BUN 23 mg/dL (7-18); BUN/Creat Ratio 21.7 RATIO (10-20); Calcium,Total 9.4 mg/dL (8.5-10.1); Chloride 108 mmol/L (98-107); Creatinine, Serum 1.06 mg/dL (0.55-1.02); EST Glomerular Filtration Rate 54 mL/min (>60); Est Glom Filt Rate - Afr Amer 65 mL/min (>60); Globulin 4.5 g/dL (2.2-4.2); Glucose 93 mg/dL (74-106); Potassium 3.9 mmol/L (3.5-5.1); Protein, Total 7.9 g/dL (6.4-8.2); Sodium Level 140 mmol/L (136-145); Thyroid Stim Hormone (TSH) 1.37 uIU/mL (0.358-3.74)
== END | disposition home or self-care (01) ==
LOC: POLAB3 10:43
PROVIDERS: Family Provider Family Medicine Geriatric Medicine; PCP Family Medicine Geriatric Medicine; Visit Provider Family Medicine Geriatric Medicine
DX: E55.9 Vitamin D deficiency, unspecified (principal); I10 Essential (primary) hypertension
CPT/HCPCS: 36415; 80053; 82306; 84443; 85025

== ENCOUNTER → 2018-10-26 | Outpatient (CLI) | payer MEDICARE, OTHER, SELFPAY ==
[2018-05-19 10:12] VITALS: BMI 40.6
--- NOTE | 2018-10-26 15:24 | VDLE_ITS ---
Reason For Study: Edema RIGHT LEFT GSV is normal. GSV is normal. CFV is compressible, spontaneous, phasic, CFV is compressible, spontaneous, phasic, competent and demonstrates normal competent, and demonstrates normal augmentation. augmentation. FV is compressible, spontaneous, phasic, FV is compressible, spontaneous, phasic, competent and demonstrates normal competent and demonstrates normal augmentation. augmentation. POP V is compressible, spontaneous, phasic, POP V is compressible, spontaneous, phasic, competent and demonstrates normal competent and demonstrates normal augmentation. augmentation. T/P Trunk is compressible. T/P Trunk is compressible. PTV is compressible. PTV is compressible. RT PerV is compressible. LT PerV is compressible. Procedure Exam performed in department. A preliminary report was called and/or faxed to Marlon. Interpretation Summary Deep veins of the lower extremities are bilaterally patent and compressible segmentally. There is no evidence of deep vein thrombosis on either side. Valvular competence appears intact within the proximal deep venous systems bilaterally. The greater saphenous veins appear bilaterally patent and compressible segmentally. Ordering Physician: Jan Mason Referring Physician: Jan Mason Chi Performed By: Ashwini Hidalgo RVT
== END | disposition home or self-care (01) ==
PROVIDERS: Family Provider Family Medicine Geriatric Medicine; PCP Family Medicine Geriatric Medicine; Referring Provider Family Medicine Geriatric Medicine; Visit Provider Family Medicine Geriatric Medicine
DX: R60.0 Localized edema (principal)
CPT/HCPCS: 93970

== ENCOUNTER → 2018-11-04 | Outpatient (CLI) | payer MEDICARE, OTHER, SELFPAY ==
[2018-05-19 10:12] VITALS: BMI 40.6
--- NOTE | 2018-11-04 14:47 | NEURO_ITS ---
NCS and/or EMG Patient Report Ordering Doctor: Jan Mason Chi DATE OF SERVICE: 11/04/18 Muriel Workman is a 73-year-old female presents for electrodiagnostic testing in the lower limbs. She reports a quotation lay funny feeling in both legs. Electrodiagnostic findings: Peroneal motor nerve demonstrates normal distal l atency, amplitude and conduction velocity bilaterally. Normal tibial motor response bilaterally H reflex normal bilaterally. F waves normal bilaterally. Absent sural response bilaterally absent medial plantar response noted bilaterally. On needle EMG, all muscles tested in the lower limbs as well as the lumbar paraspinals, showed no evidence of denervation with normal motor unit action potentials. Electrodiagnostic impression: This is an abnormal study in the lower limbs. 1. 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 There is no evidence for motor neuropathy. 2. No electrodiagnostic evidence is noted for lumbosacral radiculopathy. If there are any further questions, please do not hesitate to contact me.
== END | disposition home or self-care (01) ==
LOC: PSN 06:28
PROVIDERS: Family Provider Family Medicine Geriatric Medicine; PCP Family Medicine Geriatric Medicine; Referring Provider Family Medicine Geriatric Medicine; Visit Provider Family Medicine Geriatric Medicine
DX: R20.2 Paresthesia of skin (principal)
CPT/HCPCS: 95886; 95912

== ENCOUNTER → 2019-01-25 15:03 | Outpatient (CLI) | payer MEDICARE, OTHER, SELFPAY ==
[2018-05-19 10:12] VITALS: BMI 40.6
== END ==
PROVIDERS: Family Provider Family Medicine Geriatric Medicine; PCP Family Medicine Geriatric Medicine; Visit Provider Family Medicine Geriatric Medicine
DX: N39.0 Urinary tract infection, site not specified (principal)
CPT/HCPCS: 87086; 87088; 87186

== ENCOUNTER → 2019-01-26 08:45 | Outpatient (CLI) | payer MEDICARE, OTHER, SELFPAY ==
[2018-05-19 10:12] VITALS: BMI 40.6
== END ==
PROVIDERS: Family Provider Family Medicine Geriatric Medicine; PCP Family Medicine Geriatric Medicine; Referring Provider Family Medicine Geriatric Medicine; Visit Provider Family Medicine Geriatric Medicine
DX: R06.02 Shortness of breath (principal)
CPT/HCPCS: 87633

== ENCOUNTER → 2019-03-23 11:54 | Outpatient (CLI) | payer MEDICARE, OTHER, SELFPAY ==
[2018-05-19 10:12] VITALS: BMI 40.6
[2019-03-23 12:26] LABS: Absolute Lymphocyte Count 1.79 X10^3/uL (0.83-4.51); Absolute Neutrophil Count 5.1 X10^3/uL (2.0-7.7); Basophil# 0.06 X10^3/uL; Basophil% 0.8 % (0-1); Eosinophil# 0.07 X10^3/uL; Eosinophils% 0.9 % (0-5); Hematocrit 41.3 % (37-47); Hemoglobin 13.3 g/dL (12.0-15.0); Lymphocyte # 1.79 X10^3/ul (4.0); Lymphocyte % 23.3 % (19-41); Mean Corp Hgb Conc 32.2 g/dL (32-36); Mean Corpuscular Hgb 30.2 pg (27.0-32.0); Mean Corpuscular Volume 93.9 fL (81-99); Mean Platelet Vol. 10.4 fl (6.2-12.0); Monocyte# 0.64 X10^3/uL; Monocyte% 8.3 % (0-10); NRBC Flagged by Analyzer 0 % (0-5); Neutrophil % 66.3 % (47-70); Platelet Count 185 K/mm3 (150-450); RBC Distribution Width CV 13.9 % (11.6-14.6); RBC Distribution Width SD 48.4 fl (35.1-43.9); White Blood Count 7.7 K/mm3 (4.4-11.0)
[2019-03-23 12:55] LABS: ALB/GLOB Ratio 0.8 RATIO (0.9-2.4); AST(SGOT) 19 U/L (15-37); Alanine Aminotransfer ALT/SGPT 27 U/L (13-56); Albumin, Serum 3.5 g/dL (3.2-5.0); Alkaline Phosphatase 78 U/L (45-117); Anion Gap 7 (5-15); BUN 17 mg/dL (7-18); BUN/Creat Ratio 13.9 RATIO (10-20); Calcium,Total 9.4 mg/dL (8.5-10.1); Chloride 110 mmol/L (98-107); Creatinine, Serum 1.22 mg/dL (0.55-1.02); EST Glomerular Filtration Rate 46 mL/min (>60); Est Glom Filt Rate - Afr Amer 56 mL/min (>60); Globulin 4.2 g/dL (2.2-4.2); Glucose 89 mg/dL (74-106); Potassium 3.8 mmol/L (3.5-5.1); Protein, Total 7.7 g/dL (6.4-8.2); Sodium Level 144 mmol/L (136-145); Thyroid Stim Hormone (TSH) 0.96 uIU/mL (0.358-3.74)
[2019-03-23 14:53] LABS: Vitamin D,25 Hydroxy 34.9 ng/mL (29.95-100.01)
== END ==
PROVIDERS: Family Provider Family Medicine Geriatric Medicine; PCP Family Medicine Geriatric Medicine; Visit Provider Family Medicine Geriatric Medicine
DX: N39.0 Urinary tract infection, site not specified (principal); E55.9 Vitamin D deficiency, unspecified; I10 Essential (primary) hypertension
CPT/HCPCS: 36415; 80053; 82306; 84443; 85025; 87077; 87086; 87088; 87186

== ENCOUNTER → 2019-06-01 10:40 | Outpatient (CLI) | payer MEDICARE, OTHER, SELFPAY ==
[2018-05-19 10:12] VITALS: BMI 40.6
[2019-05-18 08:23] VITALS: BMI 41.1
--- NOTE | 2019-06-01 10:45 | BI_ITS ---
MAMMOGRAPHY - BILATERAL SCREENING REASON FOR EXAM: Female, 73 years old. Routine annual screening examination. PERTINENT HISTORY: Non-contributory. Remote left stereotactic breast biopsy. TECHNIQUE: Digital bilateral breast randi (3D mammographic acquisition) in the CC and MLO projections. 2-D mediolateral oblique (MLO) and craniocaudad (CC) views of both breasts were obtained. CAD: Full Field Digital Mammography with Computer Added Detection was performed. COMPARISON: Comparison is made with prior examination dated May 20, 2018 and December 25, 2016. FINDINGS: Breast Composition: The breasts are almost entirely fatty. There are no dominant masses or suspicious calcifications. A tissue clip marker is once again seen in the lateral retroareolar region of the left breast. Stable benign-appearing bilateral axillary lymph nodes. No other significant abnormalities are identified. There has been no significant change since the prior study. BI/SCREEN MAMM (CAD) W/RANDI BILAT IMPRESSION: Stable bilateral screening mammogram. Yearly follow-up mammogram recommended. (A) ASSESSMENT CATEGORY: BIRADS Category 2: Benign. A letter regarding these results will be sent to the patient by the facility within 30 days. Approximately 10% of breast cancers are not detected by mammography. A normal mammogram should not delay biopsy of a clinically suspicious abnormality. [id number] Electronically Signed: Gary Gregorio, at 13:12 EST , Service support ,
== END ==
PROVIDERS: Family Provider Family Medicine Geriatric Medicine; PCP Family Medicine Geriatric Medicine; Referring Provider Obstetrics & Gynecology Gynecology; Visit Provider Obstetrics & Gynecology Gynecology
DX: Z12.31 Encounter for screening mammogram for malignant neoplasm of breast (principal); N95.8 Other specified menopausal and perimenopausal disorders
CPT/HCPCS: 77063; 77067

== ENCOUNTER → 2019-06-03 10:51 | Outpatient (CLI) | payer MEDICARE, OTHER, SELFPAY ==
[2019-05-18 08:23] VITALS: BMI 41.1
--- NOTE | 2019-06-03 10:52 | ECHOD_ITS ---
Reason For Study: HTN Procedure This was a 2D Doppler, Color Flow transthoracic echocardiogram. Exam performed in department. Left Ventricle Normal LV size. Left ventricular systolic function is normal. The estimated ejection fraction is 60 %. No regional wall motion abnormalities noted. Right Ventricle Normal RV size. Normal systolic function. Atria Normal left atrium. Normal right atrium. Mitral Valve Normal mitral valve. Tricuspid Valve Normal tricuspid valve. Mild tricuspid valve insufficiency. Aortic Valve Normal aortic valve. Trisinus/trileaflet aortic valve. Pulmonic Valve Normal pulmonic valve. Great Vessels Normal aortic root. The pulmonary artery is normal size. Pericardium/Pleural No pericardial effusion. MMode/2D Measurements & Calculations LVIDd: 3.9 cm IVSd: 0.89 cm Ao root diam: 4.3 cm LVIDs: 2.4 cm LVPWd: 0.97 cm RVDd: 3.4 cm FS: 39.1 % LAV(MOD-bp): 36.2 ml LA A4 area: 19.3 cm2 LA dimension(2D): 3.5 cm LAV(MOD-bp) Indexed: 18.5 ml/m2 LAV(MOD-sp2): 22.6 ml LAV(MOD-sp4): 49.6 ml RA A4 area: 14.1 cm2 Time Measurements MV dec time: 0.24 sec Doppler Measurements & Calculations MV E max jerome: 86.9 cm/sec Lat Peak E' Jerome: 8.6 cm/sec Med Peak E' Jerome: 7.9 cm/sec MV A max jerome: 78.6 cm/sec E/E' lat: 10.0 E/E' med: 11.0 MV E/A: 1.1 Ao V2 max: 159.4 cm/sec LV V1 max: 120.9 cm/sec TR max jerome: 276.2 cm/sec Ao max P.2 mmHg LV V1 max P.8 mmHg TR max P.6 mmHg Interpretation Summary Left ventricular systolic function is normal. The estimated ejection fraction is 60 %. Mild tricuspid valve insufficiency. Normal LV size. Ordering Physician: Marino Givens Referring Physician: RENEE RIVERA CHI Performed By: Estefania De La Garza, RENATA, RVT
== END ==
PROVIDERS: PCP Family Medicine Geriatric Medicine; Referring Provider Internal Medicine Cardiovascular Disease; Visit Provider Internal Medicine Cardiovascular Disease
DX: I36.1 Nonrheumatic tricuspid (valve) insufficiency (principal); I10 Essential (primary) hypertension
CPT/HCPCS: 93306

== ENCOUNTER → 2019-09-21 11:35 | Outpatient (CLI) | payer MEDICARE, OTHER, SELFPAY ==
[2019-05-18 08:23] VITALS: BMI 41.1
[2019-09-21 12:10] LABS: Absolute Lymphocyte Count 1.82 X10^3/uL (0.83-4.51); Absolute Neutrophil Count 4.3 X10^3/uL (2.0-7.7); Basophil# 0.04 X10^3/uL; Basophil% 0.6 % (0-1); Eosinophils% 1.5 % (0-5); Hematocrit 40.9 % (37-47); Hemoglobin 13.2 g/dL (12.0-15.0); Lymphocyte # 1.82 X10^3/ul (4.0); Lymphocyte % 26.8 % (19-41); Mean Corp Hgb Conc 32.3 g/dL (32-36); Mean Corpuscular Hgb 30.1 pg (27.0-32.0); Mean Corpuscular Volume 93.2 fL (81-99); Mean Platelet Vol. 10.2 fl (6.2-12.0); Monocyte# 0.53 X10^3/uL; Monocyte% 7.8 % (0-10); NRBC Flagged by Analyzer 0 % (0-5); Neutrophil # 4.27 X10^3/uL (2.7-7.7); Neutrophil % 62.9 % (47-70); Platelet Count 218 K/mm3 (150-450); RBC Distribution Width CV 14.3 % (11.6-14.6); RBC Distribution Width SD 48.8 fl (35.1-43.9); Red Blood Count 4.39 M/mm3 (4.2-5.4); White Blood Count 6.8 K/mm3 (4.4-11.0)
[2019-09-21 12:32] LABS: Vitamin D,25 Hydroxy 26.1 ng/mL
[2019-09-21 12:43] LABS: ALB/GLOB Ratio 0.8 RATIO (0.9-2.4); AST(SGOT) 19 U/L (15-37); Alanine Aminotransfer ALT/SGPT 30 U/L (13-56); Albumin, Serum 3.5 g/dL (3.2-5.0); Alkaline Phosphatase 82 U/L (45-117); Anion Gap 8 (5-15); BUN 17 mg/dL (7-18); BUN/Creat Ratio 17.3 RATIO (10-20); Calcium,Total 9.4 mg/dL (8.5-10.1); Chloride 104 mmol/L (98-107); Creatinine, Serum 0.98 mg/dL (0.55-1.02); EST Glomerular Filtration Rate 59 mL/min (>60); Est Glom Filt Rate - Afr Amer 71 mL/min (>60); Globulin 4.4 g/dL (2.2-4.2); Glucose 88 mg/dL (74-106); Potassium 3.7 mmol/L (3.5-5.1); Protein, Total 7.9 g/dL (6.4-8.2); Sodium Level 140 mmol/L (136-145); Thyroid Stim Hormone (TSH) 1.34 uIU/mL (0.358-3.74)
== END ==
PROVIDERS: PCP Family Medicine Geriatric Medicine; Visit Provider Family Medicine Geriatric Medicine
DX: I10 Essential (primary) hypertension (principal); E55.9 Vitamin D deficiency, unspecified
CPT/HCPCS: 36415; 80053; 82306; 84443; 85025

== ENCOUNTER → 2019-10-06 16:03 | Outpatient (CLI) | payer MEDICARE, OTHER, SELFPAY ==
[2019-05-18 08:23] VITALS: BMI 41.1
--- NOTE | 2019-10-06 16:30 | RAD_ITS ---
STUDY: X-RAY - RIGHT ANKLE REASON FOR EXAM: Female, 74 years old. SAMUELS X1 YR, NKI TECHNIQUE: 3 view(s) of the ankle. COMPARISON: None. FINDINGS: Normal visualized distal tibia and fibula. Normal medial and lateral malleoli. Normal tibiotalar articulation and ankle mortise. Normal visualized talus and calcaneus. The visualized subtalar, talonavicular, calcaneocuboid and tarsal articulations are normal. Bimalleolar soft tissue swelling is noted. RAD/Ankle min 3 Views IMPRESSION: Bimalleolar sprain. No evidence for acute fracture Electronically Signed: Gerry Frazier MD at 17:01 EDT , Service support ,
[2019-10-06 16:49] LABS: Absolute Lymphocyte Count 1.89 X10^3/uL (0.83-4.51); Absolute Neutrophil Count 4.1 X10^3/uL (2.0-7.7); Basophil# 0.06 X10^3/uL; Basophil% 0.9 % (0-1); Eosinophil# 0.13 X10^3/uL; Eosinophils% 1.9 % (0-5); Hematocrit 41.6 % (37-47); Hemoglobin 13.1 g/dL (12.0-15.0); Lymphocyte # 1.89 X10^3/ul (4.0); Lymphocyte % 28.2 % (19-41); Mean Corp Hgb Conc 31.5 g/dL (32-36); Mean Corpuscular Hgb 29.6 pg (27.0-32.0); Mean Corpuscular Volume 93.9 fL (81-99); Mean Platelet Vol. 10.5 fl (6.2-12.0); Monocyte# 0.55 X10^3/uL; Monocyte% 8.2 % (0-10); NRBC Flagged by Analyzer 0 % (0-5); Neutrophil # 4.05 X10^3/uL (2.7-7.7); Neutrophil % 60.5 % (47-70); Platelet Count 200 K/mm3 (150-450); RBC Distribution Width SD 48.3 fl (35.1-43.9); Red Blood Count 4.43 M/mm3 (4.2-5.4); White Blood Count 6.7 K/mm3 (4.4-11.0)
[2019-10-06 16:58] LABS: Anion Gap 8 (5-15); BUN 23 mg/dL (7-18); BUN/Creat Ratio 20.5 RATIO (10-20); Calcium,Total 9.3 mg/dL (8.5-10.1); Chloride 105 mmol/L (98-107); Creatinine, Serum 1.12 mg/dL (0.55-1.02); EST Glomerular Filtration Rate 51 mL/min (>60); Est Glom Filt Rate - Afr Amer 61 mL/min (>60); Glucose 80 mg/dL (74-106); Iron 72 ug/dL (50-170); Potassium 3.7 mmol/L (3.5-5.1); Sodium Level 141 mmol/L (136-145); Uric Acid 5.7 mg/dL (2.6-6.0)
[2019-10-06 17:24] LABS: Erythrocyte Sedimentation Rate 69 mm/hr (0-30)
== END ==
LOC: POLAB3 16:04 → RAD 16:20
PROVIDERS: PCP Family Medicine Geriatric Medicine; Referring Provider Family Medicine Geriatric Medicine; Visit Provider Family Medicine Geriatric Medicine
DX: D50.9 Iron deficiency anemia, unspecified (principal); M25.579 Pain in unspecified ankle and joints of unspecified foot; M19.90 Unspecified osteoarthritis, unspecified site
CPT/HCPCS: 36415; 73610; 80048; 83540; 84550; 85025; 85652; 86140

== ENCOUNTER → 2019-10-15 08:49 | Outpatient (CLI) | payer MEDICARE, OTHER, SELFPAY ==
[2019-05-18 08:23] VITALS: BMI 41.1
--- NOTE | 2019-10-15 08:54 | VDLE_ITS ---
Reason For Study: localized edema RIGHT LEFT GSV is normal. CFV is compressible, spontaneous, phasic, CFV is compressible, spontaneous, phasic, competent, and demonstrates normal competent and demonstrates normal augmentation. augmentation. FV is compressible, spontaneous, phasic, competent and demonstrates normal augmentation. POP V is compressible, spontaneous, phasic, competent and demonstrates normal augmentation. T/P Trunk is compressible. PTV is compressible. RT PerV is compressible. Procedure Exam performed in department. The exam was diagnostic. A preliminary report was called and/or faxed to Dr. Mason @ [phone] @ 9:20 am. Interpretation Summary Deep veins of the right lower extremity are patent and compressible segmentally. There is no evidence of right lower extremity deep vein thrombosis. Valvular competence appears intact within the proximal deep venous system on the right . The right great saphenous vein appears patent and compressible segmentally. Ordering Physician: Jan Mason Referring Physician: Jan Mason Chi Performed By: Alicia Martinez, RENATA, RVT
== END ==
PROVIDERS: PCP Family Medicine Geriatric Medicine; Referring Provider Family Medicine Geriatric Medicine; Visit Provider Family Medicine Geriatric Medicine
DX: R60.0 Localized edema (principal)
CPT/HCPCS: 93971

== ENCOUNTER → 2019-10-18 10:55 | Outpatient (CLI) | payer MEDICARE, OTHER, SELFPAY ==
[2019-10-18 10:47] VITALS: BMI 39.3
== END ==
PROVIDERS: PCP Family Medicine Geriatric Medicine; Referring Provider Chiropractor; Visit Provider Chiropractor
DX: M99.03 Segmental and somatic dysfunction of lumbar region (principal); M54.5 Low back pain
CPT/HCPCS: 72110

== ENCOUNTER → 2020-02-09 | Outpatient (CLI) | payer MEDICARE, OTHER, SELFPAY ==
[2019-10-18 11:06] VITALS: BMI 41.1
== END | disposition home or self-care (01) ==
LOC: POLAB3 16:12 → LABSPEC 16:13
PROVIDERS: PCP Family Medicine Geriatric Medicine; Visit Provider Family Medicine Geriatric Medicine
DX: N39.0 Urinary tract infection, site not specified (principal)
CPT/HCPCS: 87086; 87088; 87186

== ENCOUNTER → 2020-02-25 | Outpatient (CLI) | payer MEDICARE, OTHER, SELFPAY ==
[2019-10-18 11:06] VITALS: BMI 41.1
== END | disposition home or self-care (01) ==
LOC: LABSPEC 10:08
PROVIDERS: PCP Family Medicine Geriatric Medicine; Referring Provider Family Medicine Geriatric Medicine; Visit Provider Family Medicine Geriatric Medicine
DX: R06.89 Other abnormalities of breathing (principal)
CPT/HCPCS: 87633; 87635; C9803; U0003

== ENCOUNTER → 2020-03-27 09:41 | Outpatient (CLI) | payer MEDICARE, OTHER, SELFPAY ==
[2019-10-18 11:06] VITALS: BMI 41.1
[2020-03-27 11:29] LABS: Absolute Lymphocyte Count 1.88 X10^3/uL (0.83-4.51); Basophil# 0.05 X10^3/uL; Basophil% 0.7 % (0-1); Eosinophil# 0.15 X10^3/uL; Eosinophils% 2.2 % (0-5); Hematocrit 41.9 % (37-47); Hemoglobin 13.3 g/dL (12.0-15.0); Lymphocyte # 1.88 X10^3/ul (4.0); Lymphocyte % 28.1 % (19-41); Mean Corp Hgb Conc 31.7 g/dL (32-36); Mean Corpuscular Hgb 29.3 pg (27.0-32.0); Mean Corpuscular Volume 92.3 fL (81-99); Mean Platelet Vol. 10.3 fl (6.2-12.0); Monocyte# 0.61 X10^3/uL; Monocyte% 9.1 % (0-10); NRBC Flagged by Analyzer 0 % (0-5); Neutrophil # 3.98 X10^3/uL (2.7-7.7); Neutrophil % 59.6 % (47-70); Platelet Count 213 K/mm3 (150-450); RBC Distribution Width CV 14.6 % (11.6-14.6); Red Blood Count 4.54 M/mm3 (4.2-5.4); White Blood Count 6.7 K/mm3 (4.4-11.0)
[2020-03-27 11:48] LABS: Vitamin D,25 Hydroxy 26.4 ng/mL
[2020-03-27 11:57] LABS: ALB/GLOB Ratio 0.8 RATIO (0.9-2.4); AST(SGOT) 18 U/L (15-37); Alanine Aminotransfer ALT/SGPT 33 U/L (13-56); Albumin, Serum 3.4 g/dL (3.2-5.0); Alkaline Phosphatase 96 U/L (45-117); Anion Gap 5 (5-15); BUN 14 mg/dL (7-18); BUN/Creat Ratio 14.1 RATIO (10-20); Calcium,Total 9.8 mg/dL (8.5-10.1); Chloride 111 mmol/L (98-107); Creatinine, Serum 0.99 mg/dL (0.55-1.02); EST Glomerular Filtration Rate 58 mL/min (>60); Est Glom Filt Rate - Afr Amer 70 mL/min (>60); Globulin 4.4 g/dL (2.2-4.2); Glucose 82 mg/dL (74-106); Potassium 4.2 mmol/L (3.5-5.1); Protein, Total 7.8 g/dL (6.4-8.2); Sodium Level 142 mmol/L (136-145); Thyroid Stim Hormone (TSH) 1.46 uIU/mL (0.358-3.74)
== END ==
PROVIDERS: PCP Family Medicine Geriatric Medicine; Visit Provider Family Medicine Geriatric Medicine
DX: I10 Essential (primary) hypertension (principal); E55.9 Vitamin D deficiency, unspecified
CPT/HCPCS: 36415; 80053; 82306; 84443; 85025

== ENCOUNTER → 2020-08-17 10:37 | Outpatient (CLI) | payer MEDICARE, OTHER, SELFPAY ==
[2020-05-05 13:07] VITALS: BMI 36.9
--- NOTE | 2020-08-17 10:44 | RAD_ITS ---
STUDY: X-RAY - LEFT KNEE REASON FOR EXAM: Female, 75 years old. KNEE PAIN TECHNIQUE: 4 view(s) of the knee. COMPARISON: 07/30/2012 FINDINGS: Normal visualized distal femur. Normal visualized proximal tibia and fibula. Normal proximal tibiofibular articulation. There is moderate degenerative arthrosis of the medial femorotibial compartment with moderate joint space narrowing. There is moderate degenerative arthrosis of the lateral femorotibial compartment with moderate joint space narrowing. Normal patellofemoral articulation. The soft tissue structures are unremarkable. RAD/Knee 4 or More Views IMPRESSION: Degenerative arthrosis. Electronically Signed: Ravin Colon MD at 7:53 EDT Tel , Service support ,
--- NOTE | 2020-08-17 10:44 | RAD_ITS ---
STUDY: X-RAY - PELVIS AND LEFT HIP REASON FOR EXAM: Female, 75 years old. HIP PAIN TECHNIQUE: 3 views of the pelvis and hip. COMPARISON: None. FINDINGS: There is a non-specific bowel gas pattern. Normal visualized soft tissue structures. Normal bilateral iliac wings, sacroiliac joints and visualized sacrum. Normal bilateral superior and inferior pubic rami. Normal pubic symphysis. Normal bilateral ischial tuberosities. Normal visualized femoral head. Normal acetabulum. Normal hip joint. RAD/HIP, UNI W/ Pelvis 2-3 Views IMPRESSION: Normal x-ray examination of the pelvis and hip. Electronically Signed: Ravin Colon MD at 16:52 EDT Tel , Service support ,
--- NOTE | 2020-08-17 10:45 | RAD_ITS ---
STUDY: X-RAY - LUMBAR SPINE REASON FOR EXAM: Female, 75 years old. LOW BACK PAIN TECHNIQUE: 3 view(s) of the lumbar spine were obtained. COMPARISON: None FINDINGS: Normal lumbar lordosis. Mild dextroscoliosis centered at L2. 5 mm of anterolisthesis of L4 on L5. There is generalized demineralization of the vertebral bodies. There is multi-level degenerative disc disease with multi-level disc space narrowing. The soft tissue structures are unremarkable. RAD/Lumbar Spine 2 or 3 Views IMPRESSION: Mild dextroscoliosis with diffuse degenerative disc disease and 5 mm of anterolisthesis of L4 on L5. Electronically Signed: Ravin Colon MD at 7:52 EDT Tel , Service support ,
--- NOTE | 2020-08-17 10:45 | RAD_ITS ---
STUDY: X-RAY - RIGHT KNEE REASON FOR EXAM: Female, 75 years old. KNEE PAIN TECHNIQUE: 4 view(s) of the knee. COMPARISON: None. FINDINGS: Normal visualized distal femur. Normal visualized proximal tibia and fibula. Normal proximal tibiofibular articulation. Status post total knee arthroplasty. The prosthesis appears located. No ostial lysis to suggest loosening.. The soft tissue structures are unremarkable. RAD/Knee 4 or More Views IMPRESSION: Normal x-ray examination of the knee after total knee arthroplasty. Electronically Signed: Ravin Colon MD at 7:54 EDT Tel , Service support ,
== END ==
PROVIDERS: PCP Family Medicine Geriatric Medicine; Referring Provider Family Medicine Geriatric Medicine; Visit Provider Family Medicine Geriatric Medicine
DX: M25.561 Pain in right knee (principal); M25.562 Pain in left knee; M25.552 Pain in left hip; M54.5 Low back pain
CPT/HCPCS: 72100; 73502; 73564

== ENCOUNTER → 2020-09-28 11:09 | Outpatient (CLI) | payer OTHER, MEDICARE, SELFPAY ==
[2020-05-05 13:07] VITALS: BMI 36.9
[2020-09-28 12:28] LABS: Absolute Lymphocyte Count 1.65 X10^3/uL (0.83-4.51); Absolute Neutrophil Count 3.7 X10^3/uL (2.0-7.7); Basophil# 0.04 X10^3/uL; Basophil% 0.7 % (0-1); Eosinophil# 0.08 X10^3/uL; Eosinophils% 1.4 % (0-5); Hematocrit 41.3 % (37-47); Hemoglobin 13.3 g/dL (12.0-15.0); Lymphocyte # 1.65 X10^3/ul (0.83-4.51); Mean Corp Hgb Conc 32.2 g/dL (32-36); Mean Corpuscular Hgb 29.5 pg (27.0-32.0); Mean Corpuscular Volume 91.6 fL (81-99); Mean Platelet Vol. 10.7 fl (6.2-12.0); Monocyte# 0.42 X10^3/uL; Monocyte% 7.1 % (0-10); NRBC Flagged by Analyzer 0 % (0-5); Neutrophil # 3.69 X10^3/uL (2.7-7.7); Neutrophil % 62.5 % (47-70); Platelet Count 207 K/mm3 (150-450); RBC Distribution Width CV 14.6 % (11.6-14.6); RBC Distribution Width SD 49.4 fl (35.1-43.9); Red Blood Count 4.51 M/mm3 (4.2-5.4); White Blood Count 5.9 K/mm3 (4.4-11.0)
[2020-09-28 12:55] LABS: ALB/GLOB Ratio 0.8 RATIO (0.9-2.4); AST(SGOT) 13 U/L (15-37); Alanine Aminotransfer ALT/SGPT 21 U/L (13-56); Albumin, Serum 3.4 g/dL (3.2-5.0); Alkaline Phosphatase 80 U/L (45-117); Anion Gap 6 (5-15); BUN 19 mg/dL (7-18); BUN/Creat Ratio 17.8 RATIO (10-20); Calcium,Total 9.6 mg/dL (8.5-10.1); Chloride 109 mmol/L (98-107); Creatinine, Serum 1.07 mg/dL (0.55-1.02); EST Glomerular Filtration Rate 53 mL/min (>60); Est Glom Filt Rate - Afr Amer 64 mL/min (>60); Globulin 4.4 g/dL (2.2-4.2); Glucose 98 mg/dL (74-106); Potassium 3.8 mmol/L (3.5-5.1); Protein, Total 7.8 g/dL (6.4-8.2); Sodium Level 142 mmol/L (136-145)
== END ==
PROVIDERS: PCP Family Medicine Geriatric Medicine; Visit Provider Family Medicine Geriatric Medicine
DX: I10 Essential (primary) hypertension (principal); E55.9 Vitamin D deficiency, unspecified
CPT/HCPCS: 36415; 80053; 82306; 84443; 85025

== ENCOUNTER → 2020-12-15 09:22 | Outpatient (CLI) | payer MEDICARE, OTHER, SELFPAY ==
[2020-12-15 13:06] LABS: Absolute Lymphocyte Count 1.18 X10^3/uL (0.83-4.51); Absolute Neutrophil Count 3.5 X10^3/uL (2.0-7.7); Basophil# 0.04 X10^3/uL; Basophil% 0.8 % (0-1); Eosinophils% 1.9 % (0-5); Hematocrit 42.3 % (37-47); Hemoglobin 13.5 g/dL (12.0-15.0); Lymphocyte # 1.18 X10^3/ul (0.83-4.51); Lymphocyte % 22.3 % (19-41); Mean Corp Hgb Conc 31.9 g/dL (32-36); Mean Corpuscular Hgb 29.9 pg (27.0-32.0); Mean Corpuscular Volume 93.6 fL (81-99); Mean Platelet Vol. 9.9 fl (6.2-12.0); Monocyte# 0.48 X10^3/uL; Monocyte% 9.1 % (0-10); NRBC Flagged by Analyzer 0 % (0-5); Neutrophil # 3.47 X10^3/uL (2.7-7.7); Neutrophil % 65.5 % (47-70); Platelet Count 186 K/mm3 (150-450); RBC Distribution Width CV 14.6 % (11.6-14.6); RBC Distribution Width SD 50.2 fl (35.1-43.9); Red Blood Count 4.52 M/mm3 (4.2-5.4); White Blood Count 5.3 K/mm3 (4.4-11.0)
[2020-12-15 13:18] LABS: ALB/GLOB Ratio 0.8 RATIO (0.9-2.4); AST(SGOT) 14 U/L (15-37); Alanine Aminotransfer ALT/SGPT 28 U/L (13-56); Albumin, Serum 3.3 g/dL (3.2-5.0); Alkaline Phosphatase 78 U/L (45-117); Anion Gap 5 (5-15); BUN 20 mg/dL (7-18); BUN/Creat Ratio 20.4 RATIO (10-20); Calcium,Total 9.2 mg/dL (8.5-10.1); Chloride 110 mmol/L (98-107); Creatinine, Serum 0.98 mg/dL (0.55-1.02); EST Glomerular Filtration Rate 59 mL/min (>60); Est Glom Filt Rate - Afr Amer 71 mL/min (>60); Globulin 4.1 g/dL (2.2-4.2); Glucose 84 mg/dL (74-106); Protein, Total 7.4 g/dL (6.4-8.2); Sodium Level 141 mmol/L (136-145)
== END ==
LOC: POLAB3 09:23
PROVIDERS: PCP Family Medicine Geriatric Medicine; Visit Provider Family Medicine Geriatric Medicine
DX: L29.9 Pruritus, unspecified (principal)
CPT/HCPCS: 36415; 80053; 85025

== ENCOUNTER → 2021-03-28 11:04 | Outpatient (CLI) | payer MEDICARE, OTHER, SELFPAY ==
[2021-03-28 12:43] LABS: Absolute Neutrophil Count 3.1 X10^3/uL (2.0-7.7); Basophil# 0.05 X10^3/uL; Basophil% 0.9 % (0-1); Eosinophil# 0.11 X10^3/uL; Eosinophils% 1.9 % (0-5); Hemoglobin 13.6 g/dL (12.0-15.0); Lymphocyte % 33.6 % (19-41); Mean Corp Hgb Conc 33.2 g/dL (32-36); Mean Corpuscular Hgb 30.4 pg (27.0-32.0); Mean Corpuscular Volume 91.5 fL (81-99); Mean Platelet Vol. 10.7 fl (6.2-12.0); Monocyte# 0.49 X10^3/uL; Monocyte% 8.7 % (0-10); NRBC Flagged by Analyzer 0 % (0-5); Neutrophil # 3.09 X10^3/uL (2.7-7.7); Neutrophil % 54.5 % (47-70); Platelet Count 193 K/mm3 (150-450); RBC Distribution Width CV 14.4 % (11.6-14.6); RBC Distribution Width SD 48.9 fl (35.1-43.9); Red Blood Count 4.48 M/mm3 (4.2-5.4); White Blood Count 5.7 K/mm3 (4.4-11.0)
[2021-03-28 12:51] LABS: Vitamin D,25 Hydroxy 30.6 ng/mL
[2021-03-28 13:08] LABS: ALB/GLOB Ratio 0.8 RATIO (0.9-2.4); AST(SGOT) 18 U/L (15-37); Alanine Aminotransfer ALT/SGPT 32 U/L (13-56); Albumin, Serum 3.5 g/dL (3.2-5.0); Alkaline Phosphatase 86 U/L (45-117); Anion Gap 8 (5-15); BUN 18 mg/dL (7-18); BUN/Creat Ratio 18.9 RATIO (10-20); Calcium,Total 9.6 mg/dL (8.5-10.1); Chloride 106 mmol/L (98-107); Creatinine, Serum 0.95 mg/dL (0.55-1.02); EST Glomerular Filtration Rate 61 mL/min (>60); Est Glom Filt Rate - Afr Amer 73 mL/min (>60); Globulin 4.4 g/dL (2.2-4.2); Glucose 87 mg/dL (74-106); Potassium 3.7 mmol/L (3.5-5.1); Protein, Total 7.9 g/dL (6.4-8.2); Sodium Level 142 mmol/L (136-145); Thyroid Stim Hormone (TSH) 1.64 uIU/mL (0.358-3.74)
== END ==
PROVIDERS: PCP Family Medicine Geriatric Medicine; Visit Provider Family Medicine Geriatric Medicine
DX: I10 Essential (primary) hypertension (principal); E55.9 Vitamin D deficiency, unspecified
CPT/HCPCS: 36415; 80053; 82306; 84443; 85025

== ENCOUNTER 2021-04-27 13:08 | Outpatient (CLI) | payer MEDICARE, OTHER, SELFPAY | END 2021-04-27 23:59 | disposition short-term general hospital (02) | LOC: PSN 13:11 | PROVIDERS: PCP Family Medicine Geriatric Medicine; Referring Provider Family Medicine Geriatric Medicine; Visit Provider Family Medicine Geriatric Medicine | DX: R68.83 Chills (without fever) (principal) | CPT/HCPCS: 87635; 87804; 87807; C9803; U0003; U0005 ==

== ENCOUNTER 2021-05-22 09:52 | Outpatient (CLI) | payer MEDICARE, OTHER, SELFPAY ==
--- NOTE | 2021-05-22 09:55 | BI_ITS ---
MAMMOGRAPHY - BILATERAL SCREENING REASON FOR EXAM: Female, 75 years old. Routine annual screening examination. PERTINENT HISTORY: Non-contributory. Remote left stereotactic breast biopsy. TECHNIQUE: Digital bilateral breast randi (3D mammographic acquisition) in the CC and MLO projections. 2-D mediolateral oblique (MLO) and craniocaudad (CC) views of both breasts were obtained. CAD: Full Field Digital Mammography with Computer Added Detection was performed. COMPARISON: Comparison is made with prior study dated 06/01/2019 and 05/20/2018. FINDINGS: Breast Composition: The breasts are almost entirely fatty. There are no dominant masses or suspicious calcifications. Stable small benign-appearing bilateral axillary lymph nodes. A tissue clip marker is once again seen in the lateral retroareolar region of the left breast. No other significant abnormalities are identified. There has been no significant change since the prior study. BI/SCRN MAMM (CAD)W/RANDI BILAT IMPRESSION: Stable bilateral screening mammogram. Yearly follow-up mammogram recommended. (A) ASSESSMENT CATEGORY: BIRADS Category 2: Benign. A letter regarding these results will be sent to the patient by the facility within 30 days. Approximately 10% of breast cancers are not detected by mammography. A normal mammogram should not delay biopsy of a clinically suspicious abnormality. [id number] Electronically Signed: Gary Gregorio MD at 11:05 EST ,
--- NOTE | 2021-05-22 09:58 | BD_ITS ---
STUDY: DUAL ENERGY X-RAY ABSORPTIOMETRY / DXA REASON FOR EXAM: Female, 75 years old. M810. The patient is postmenopausal. TECHNIQUE: Bone Mineral Density (BMD) measurements of lumbar spine and bilateral hips were obtained. COMPARISON: Comparison is made with prior study dated 03/18/2018. FINDINGS: Lumbar Spine (L1-L4): g/cm2 (0.939) / T-score (-1.9) / Z-score (0.8) Findings are suggestive of osteopenia with a moderate fracture risk. Left Femur Total: g/cm2 (0.861) / T-score (-1.1) / Z-score (0.2) Left Femoral Neck: g/cm2 (0.678) / T-score (-1.9) / Z-score (-0.3) Right Femur Total: g/cm2 (0.810) / T-score (-1.4) / Z-score (-0.1) Right Femoral Neck: g/cm2 (0.625) / T-score (-2.3) / Z-score (-0.7) The T-Scores on the most recent prior examination were: Lumbar Spine (L1-L4): There has been worsening of bone density since the previous examination. Left Femur Total: which represents a worsening of 2.7%. Right Femur Total: which represents a worsening of 6.2%. BD/Dexa Bone Density Study IMPRESSION: The patient is considered osteopenic as outlined below according to World Matt Organization (WHO) criteria with a high fracture risk. There has been worsening of bone density since the previous examination. Reference Information: The T-score is the number of standard deviations above or below the standard which is normal for young adults at their peak bone mineral density. The World Health Organization (WHO) interprets the T-scores as follows: Above -1 Normal bone density Between -1 and -2.5 Osteopenia Equal to / or below -2.5 Osteoporosis As a practical clinical guideline, osteopenia may be graded as follows: Mild -1 through -1.5 Moderate -1.6 through -2.0 Severe -2.1 through -2.4 The Z-score is the number of standard deviations above or below age-matched controls. A Z-score of less than -1.5 would be considered abnormal. References: 1. NIH Osteoporosis and Related Bone Diseases www osteo.org 2. International Society for Clinical Densitometry www iscd.org 3. National Osteoporosis Foundation www nof.org Electronically Signed: Gary Gregorio MD at 15:41 EST ,
== END 2021-05-22 23:59 | disposition short-term general hospital (02) ==
LOC: OPBI 09:52
PROVIDERS: PCP Family Medicine Geriatric Medicine; Referring Provider Obstetrics & Gynecology Gynecology; Visit Provider Obstetrics & Gynecology Gynecology
DX: Z12.31 Encounter for screening mammogram for malignant neoplasm of breast (principal); Z13.820 Encounter for screening for osteoporosis; M81.0 Age-related osteoporosis without current pathological fracture
CPT/HCPCS: 77063; 77067; 77080

== ENCOUNTER 2021-05-23 12:13 | Outpatient (CLI) | payer MEDICARE, OTHER, SELFPAY ==
--- NOTE | 2021-05-23 12:29 | RAD_ITS ---
STUDY: XR Chest 2 Views 05/23/2021 12:38 PM REASON FOR EXAM: Female, 75 years old. CHEST PAIN SOB COMPARISON: 7.26.16 TECHNIQUE: XR Chest 2 Views FINDINGS: There is no demonstrated pleural abnormality. Normal heart size. Normal mediastinum. Normal mary. Prominent appearing increased interstitial lung markings. Normal visualized pulmonary arteries. There is atherosclerotic calcification of the aortic arch with tortuosity. There are diffuse degenerative changes of the visualized thoracic spine. There is degenerative osteoarthritis of the bilateral shoulders. There is no demonstrated abnormality of the visualized soft tissue structures of the upper abdomen. RAD/Chest PA and Lateral IMPRESSION: There are no acute findings. Electronically Signed: Jorge Blum MD at 19:41 EST ,
[2021-05-23 12:42] LABS: Absolute Lymphocyte Count 1.72 X10^3/uL (0.83-4.51); Absolute Neutrophil Count 3.6 X10^3/uL (2.0-7.7); Basophil# 0.04 X10^3/uL; Basophil% 0.7 % (0-1); Eosinophil# 0.14 X10^3/uL; Eosinophils% 2.3 % (0-5); Hematocrit 41.2 % (37-47); Hemoglobin 13.5 g/dL (12.0-15.0); Lymphocyte # 1.72 X10^3/ul (0.83-4.51); Lymphocyte % 28.7 % (19-41); Mean Corp Hgb Conc 32.8 g/dL (32-36); Mean Corpuscular Volume 91.6 fL (81-99); Mean Platelet Vol. 9.9 fl (6.2-12.0); Monocyte# 0.46 X10^3/uL; Monocyte% 7.7 % (0-10); NRBC Flagged by Analyzer 0 % (0-5); Neutrophil # 3.62 X10^3/uL (2.7-7.7); Neutrophil % 60.3 % (47-70); Platelet Count 207 K/mm3 (150-450); RBC Distribution Width CV 14.6 % (11.6-14.6); RBC Distribution Width SD 49.4 fl (35.1-43.9)
[2021-05-23 13:15] LABS: BNP,B-Type NATRIURETIC PEPTIDE 17.1 pg/mL (0-100)
[2021-05-23 13:25] LABS: ALB/GLOB Ratio 0.8 RATIO (0.9-2.4); AST(SGOT) 15 U/L (15-37); Alanine Aminotransfer ALT/SGPT 22 U/L (13-56); Albumin, Serum 3.3 g/dL (3.2-5.0); Alkaline Phosphatase 86 U/L (45-117); Anion Gap 6 (5-15); BUN 17 mg/dL (7-18); BUN/Creat Ratio 16.3 RATIO (10-20); Calcium,Total 9.3 mg/dL (8.5-10.1); Chloride 107 mmol/L (98-107); Creatinine, Serum 1.04 mg/dL (0.55-1.02); EST Glomerular Filtration Rate 55 mL/min (>60); Est Glom Filt Rate - Afr Amer 66 mL/min (>60); Globulin 4.4 g/dL (2.2-4.2); Glucose 79 mg/dL (74-106); Potassium 3.9 mmol/L (3.5-5.1); Protein, Total 7.7 g/dL (6.4-8.2); Sodium Level 141 mmol/L (136-145); Thyroid Stim Hormone (TSH) 1.01 uIU/mL (0.358-3.74)
== END 2021-05-23 23:59 | disposition short-term general hospital (02) ==
LOC: POLAB3 12:15 → RAD 12:29
PROVIDERS: PCP Family Medicine Geriatric Medicine; Referring Provider Family Medicine Geriatric Medicine; Visit Provider Family Medicine Geriatric Medicine
DX: R06.02 Shortness of breath (principal); R53.83 Other fatigue; R63.8 Other symptoms and signs concerning food and fluid intake
CPT/HCPCS: 36415; 71046; 80053; 83880; 84443; 85025

== ENCOUNTER 2021-06-01 09:52 | Outpatient (CLI) | payer MEDICARE, OTHER, SELFPAY ==
--- NOTE | 2021-06-02 08:05 | PFT ---
INTRODUCTION: The patient is a 75-year-old female that presents for pulmonary function studies secondary to a diagnosis of shortness of breath. Respiratory therapy reported good patient effort. Bronchodilators were used during testing. INTERPRETATION: Forced expiration spirometry demonstrates no evidence of a large airways obstructive ventilatory defect. There was no significant response to aerosolized bronchodilators. Spirograms are of good quality and plateau normally. Body plethysmography was performed and reveals lung volumes to be within normal limits. Diffusing capacity by single breath CO is also within normal limits. IMPRESSION: Grossly normal pulmonary function studies.
== END 2021-06-01 23:59 | disposition home or self-care (01) ==
LOC: PSN 09:54
PROVIDERS: PCP Family Medicine Geriatric Medicine; Referring Provider Family Medicine Geriatric Medicine; Visit Provider Family Medicine Geriatric Medicine
DX: R06.00 Dyspnea, unspecified (principal)
CPT/HCPCS: 94060; 94726; 94729

== ENCOUNTER 2021-06-25 10:53 | Outpatient (CLI) | payer MEDICARE, OTHER, SELFPAY ==
--- NOTE | 2021-06-25 10:56 | ECHOD_ITS ---
Reason For Study: Weight Increase, SOB Procedure This was a 2D Doppler, Color Flow transthoracic echocardiogram. Exam performed in department. Left Ventricle Normal LV size. Left ventricular systolic function is normal. The estimated ejection fraction is 60 %. Stage 1 diastolic dysfunction. No regional wall motion abnormalities noted. Right Ventricle Normal RV size. Normal systolic function. Atria Normal left atrium. Normal right atrium. Mitral Valve Normal mitral valve. Tricuspid Valve Normal tricuspid valve. Mild tricuspid valve insufficiency. Pulmonary artery systolic pressure is 30 mmHg. Aortic Valve Trisinus/trileaflet aortic valve. Mild (1+) eccentric aortic valve insufficiency. Great Vessels Mild to moderately dilated aortic root. The pulmonary artery is normal size. Normal inferior vena cava. Pericardium/Pleural No pericardial effusion. MMode/2D Measurements & Calculations LVIDd: 4.1 cm IVSd: 0.98 cm Ao root diam: 4.2 cm LVIDs: 2.4 cm LVPWd: 0.90 cm RVDd: 3.3 cm FS: 42.7 % LAV(MOD-bp): 50.9 ml LVAd ap4: 22.5 cm2 SV(MOD-sp4): 37.0 ml LAV(MOD-bp) Indexed: 26.3 ml/m2 LVLd ap4: 7.4 cm LAV(MOD-sp2): 42.1 ml EDV(MOD-sp4): 57.1 ml LAV(MOD-sp4): 51.6 ml EDV(sp4-el): 58.1 ml LVAs ap4: 11.2 cm2 LVLs ap4: 6.0 cm ESV(MOD-sp4): 20.0 ml ESV(sp4-el): 17.8 ml EF(MOD-sp4): 64.9 % EF(sp4-el): 69.4 % SV(sp4-el): 40.4 ml LA dimension(2D): 3.1 cm LA A4 area: 18.5 cm2 RA A4 area: 12.6 cm2 Doppler Measurements & Calculations MV E max jerome: 67.3 cm/sec Lat Peak E' Jerome: 9.6 cm/sec Med Peak E' Jerome: 7.1 cm/sec MV A max jerome: 80.6 cm/sec E/E' lat: 7.0 E/E' med: 9.5 MV E/A: 0.84 Ao V2 max: 185.0 cm/sec AI max jerome: 426.2 cm/sec LV V1 max: 122.6 cm/sec Ao max P.7 mmHg AI max P.7 mmHg LV V1 max P.0 mmHg Ao V2 mean: 122.5 cm/sec Ao mean P.8 mmHg AI dec slope: 206.2 cm/sec2 Ao V2 VTI: 37.4 cm AI P1/2t: 605.3 msec PA V2 max: 108.0 cm/sec TR max jerome: 255.1 cm/sec TR max P.0 mmHg ECHO/Echo Complete Interpretation Summary Normal LV size. Left ventricular systolic function is normal. The estimated ejection fraction is 60 %. Stage 1 diastolic dysfunction. Mild (1+) eccentric aortic valve insufficiency. Pulmonary artery systolic pressure is 30 mmHg. Ordering Physician: Jan Mason Chi Referring Physician: Jan Mason Chi Performed By: Cyndy Corral, RENATA, RVT
== END 2021-06-25 23:59 | disposition home or self-care (01) ==
LOC: CVS 10:55
PROVIDERS: PCP Family Medicine Geriatric Medicine; Referring Provider Family Medicine Geriatric Medicine; Visit Provider Family Medicine Geriatric Medicine
DX: R06.02 Shortness of breath (principal); R63.8 Other symptoms and signs concerning food and fluid intake
CPT/HCPCS: 93306

== ENCOUNTER 2021-07-04 12:33 | Outpatient (CLI) | payer MEDICARE, OTHER, SELFPAY ==
[2021-07-04 17:26] LABS: Anion Gap 4 (5-15); BUN 13 mg/dL (7-18); BUN/Creat Ratio 12.7 RATIO (10-20); Calcium,Total 9.7 mg/dL (8.5-10.1); Chloride 107 mmol/L (98-107); Creatinine, Serum 1.02 mg/dL (0.55-1.02); EST Glomerular Filtration Rate 56 mL/min (>60); Est Glom Filt Rate - Afr Amer 68 mL/min (>60); Glucose 92 mg/dL (74-106); Sodium Level 141 mmol/L (136-145)
== END 2021-07-04 23:59 | disposition home or self-care (01) ==
LOC: LAB 12:35
PROVIDERS: PCP Family Medicine Geriatric Medicine; Visit Provider Family Medicine Geriatric Medicine
DX: I10 Essential (primary) hypertension (principal)
CPT/HCPCS: 36415; 80048

== ENCOUNTER 2021-07-16 10:18 | Outpatient (CLI) | payer MEDICARE, OTHER, SELFPAY | END 2021-07-16 23:59 | disposition home or self-care (01) | LOC: PSN 10:20 | PROVIDERS: PCP Family Medicine Geriatric Medicine; Referring Provider Family Medicine Geriatric Medicine; Visit Provider Family Medicine Geriatric Medicine | DX: R68.83 Chills (without fever) (principal); Z20.822 Contact with and (suspected) exposure to COVID-19 | CPT/HCPCS: 87428; 87807; C9803 ==

== ENCOUNTER → 2021-09-03 | Outpatient (CLI) | payer MEDICARE, OTHER, SELFPAY ==
--- NOTE | 2021-09-03 10:36 | CT_ITS ---
STUDY: CT ABDOMEN AND PELVIS WITHOUT CONTRAST REASON FOR EXAM: Female, 76 years old. LFT FLANK PAIN. Microscopic hematuria. RADIATION DOSAGE (If Supplied By Facility): CTDIvol = ( 23.25 ) mGy, DLP = ( 1062.95 ) mGycm TECHNIQUE: Transaxial images were obtained from the dome of the diaphragm to the symphysis pubis without oral contrast, and without intravenous contrast. Sagittal and coronal images were reconstructed. Individualized dose optimization techniques were used for this CT. COMPARISON: Comparison is made with prior study dated 10/18/2013. FINDINGS: The visualized lung bases are unremarkable. Coronary artery calcification. Normal liver. The patient is status post cholecystectomy. Normal spleen. Normal pancreas. Normal bilateral adrenal glands. Normal right kidney. Normal left kidney. Normal visualized stomach. Normal small intestine. Normal colon. There are surgical clips in the region of the appendix consistent with a prior appendectomy. There is scattered atherosclerotic calcification of the abdominal aorta, without a demonstrated aneurysm. Normal inferior vena cava. Normal retroperitoneum. Normal urinary bladder. There is a small umbilical hernia containing fat. There are degenerative changes of the visualized lumbar spine. Grade 1 anterolisthesis of L4 on L5 most likely secondary to facet joint osteoarthritis. CT/Abdomen/Pelvis without Cont IMPRESSION: No obstructive uropathy is seen at this time. The patient is status post appendectomy and cholecystectomy. Electronically Signed: Gary Gregorio MD at 11:15 EDT ,
== END | disposition home or self-care (01) ==
PROVIDERS: PCP Family Medicine Geriatric Medicine; Visit Provider Family Medicine Geriatric Medicine
DX: R10.30 Lower abdominal pain, unspecified (principal)
CPT/HCPCS: 74176

== ENCOUNTER 2021-09-07 10:43 | Emergency (ER) | payer MEDICARE, OTHER, SELFPAY ==
[2021-09-07 10:44] VITALS: BP 172/72; PULSE 66; RESP 18; TEMP 36.8; O2SAT 98; BMI 38.7
--- NOTE | 2021-09-07 11:32 | EDS_ITS ---
HPI HPI - Fall History of Present Illness Chief Complaint: Fall Narrative Narrative: 76-year-old female presenting with left shoulder pain. She states had mechanical fall yesterday. She states she was reaching for door and missed the doorknob and fell forward hitting her left shoulder. She did hit her head but states that she did not lose consciousness. She denies dizziness, lightheadedness, visual complaints, nausea, vomiting. She denies neck pain. She states even pain in the left anterior shoulder when she is trying to move her arm. She is able to move it. Denies paresthesias. She states she is unsure if this is the shoulder she had surgery on distantly for possible rotator cuff tear. 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 Nonrheumatic mitral (valve) insufficiency Nonrheumatic tricuspid (valve) insufficiency Obesity, Class II, BMI 35-39.9 Osteoarthritis Home Medications cyanocobalamin (vitamin B-12) 1,000 mcg IM QWEEK 06/23/14 [History Last Taken 06/27/14] acetaminophen 650 mg PO Q4H PRN PRN #0 tab 07/19/14 [Rx Last Taken Unknown] aspirin 81 mg PO DAILY 04/16/16 [History Last Taken Unknown] cholecalciferol (vitamin D3) 125 mcg (5,000 unit) capsule 5,000 unit PO QDAY 04/10/17 [History Last Taken Unknown] dexlansoprazole 30 mg capsule,biphase delayed release 30 mg PO QDAY 04/10/17 [History Last Taken Unknown] linaclotide 145 mcg capsule 145 mcg PO PRN PRN 04/10/17 [History Last Taken Unknown] vitamin E mixed 1,000 unit capsule 1,000 unit PO .OD ea 04/11/17 [History Last Taken Unknown] magnesium oxide 400 mg PO DAILY #1 tab 07/31/18 [Rx Last Taken Unknown] amlodipine 10 mg tablet 10 mg PO DAILY #90 tab 05/18/19 [Rx Last Taken Unknown] atorvastatin 10 mg tablet 10 mg PO DAILY #90 tab 05/18/19 [Rx Last Taken Unknown] irbesartan 150 mg tablet 150 mg PO DAILY tab 01/28/20 [History Last Taken Unknown] hydrochlorothiazide 25 mg tablet 25 mg PO DAILY #90 tab 07/06/20 [Rx Last Taken Unknown] potassium chloride 8 mEq tablet,extended release 8 meq PO BID #60 tab 07/06/20 [Rx Last Taken Unknown] Allergy/AdvReac Type Severity Reaction Status Date / Time milk Allergy Unknown unknown Verified 09/07/21 10:44 lisinopril AdvReac Intermediate cough Verified 09/07/21 10:44 ibuprofen [From Motrin] AdvReac Mild Other Verified 09/07/21 10:44 naproxen sodium [From Aleve] AdvReac Mild Swelling Verified 09/07/21 10:44 Family History Mother Cancer Hypertension Surgical History H/O knee surgery Social History Smoking Status: Never smoker ROS ROS ED Constitutional Constitutional ED: Denies chills, fever(s) or sweats Eyes Eyes: Denies blurry vision or change in vision ENT ENT ED: Denies ear pain or sore throat Cardiovascular Cardiovascular: Denies chest pain, palpitations or racing heartbeat Respiratory/Chest Respiratory/Chest: Denies cough, dyspnea or sputum Gastrointestinal Gastrointestinal: Denies abdominal pain, constipation, diarrhea, nausea or vomiting Genitourinary Genitourinary ED: Denies dysuria, hematuria or urinary frequency Musculoskeletal Musculoskeletal: Reports other Details: Left shoulder pain Integumentary Reports other Details: Right forehead contusion Neurologic Neurologic: Denies headache(s), paresthesias or weakness Psychiatric Psychiatric: Denies anxiety, depression, suicidal ideation or suicidal thoughts Endocrine Endocrinology: Denies polydipsia or polyuria EXAM Physical Exam Const Vital Signs: 09/07/21 10:44 09/07/21 11:48 09/07/21 13:03 Temperature 98.2 F Temperature Source Temporal Pulse Rate 66 66 Respiratory Rate 18 14 Respiratory Effort Normal Respiratory Depth Normal Respiratory Pattern Normal Blood Pressure 172/72 H 150/85 H Blood Pressure Mean 105 106 Pulse Ox 98 98 Oxygen Delivery Method Room Air Room Air Room Air Positive well nourished General Appearance ED: NAD HEENT Reports normocephalic and TM's normal bilaterally HEENT Narrative: 2 cm hematoma on the right forehead. No skull induration or deformity. Eyes PERRL and EOMs intact bilaterally Neck full ROM General: Negative for tenderness Resp normal respiratory effort and clear to auscultation bilaterally Cardio regular rate and regular rhythm Extremity Extremity Narrative: Tenderness palpation over the anterior left shoulder. Patient able to abduct to about 45 degrees. Limited extension but flexion is normal. No crepitance. Neuro oriented x3, CN's II-XII intact bilaterally, moves all extremities, no focal motor deficits and no sensory deficits noted Sensorium / Orientation: alert Psych mental status grossly normal Skin Lesions: no lesions Rashes: no rashes MDM MDM MDM Narrative Medical decision making narrative: Patient declined oral analgesia but was amenable to a Lidoderm patch. This did help her pain. X-ray of the left shoulder does not show any acute fracture or subluxation on my interpretation. There are degenerative changes. The radiologist does agree. Patient counseled on ice and alternating Tylenol and ibuprofen for pain. She will follow-up with her primary care doctor. Patient stable for discharge. Impression: 1. Mechanical fall 2. Left shoulder contusion Lab Data Attestation: I reviewed the patient's lab results. Radiography Diagnostic Testing: Clinical Impression(s) from Imaging Studies Shoulder X-Ray 09/07/21 11:40 IMPRESSION: Degenerative changes of the acromioclavicular joint. Electronically Signed: Gary Gregorio MD at 12:07 EDT Reading Location ID and State: [address] [place] [address] , Service support , Discharge Plan Triage Chief Complaint: Fall Other Complaint: Head Injury Upper Extremity Injury ED Provider: Parish Wall Dx/Rx/DC Orders Prescriptions: No Action cholecalciferol (vitamin D3) 5,000 unit capsule 5,000 unit PO QDAY RF: 0 dexlansoprazole [Dexilant] 30 mg capsule,biphase delayed releas 30 mg PO QDAY RF: 0 linaclotide [Linzess] 145 mcg capsule 145 mcg PO PRN PRN (Reason: Constipation) RF: 0 vitamin E mixed 1,000 unit capsule 1,000 unit PO .OD RF: 0 irbesartan 150 mg tablet 150 mg PO DAILY RF: 0 atorvastatin 10 mg tablet 10 mg PO DAILY Qty: 90 RF: 3 amlodipine 10 mg tablet 10 mg PO DAILY Qty: 90 RF: 5 cyanocobalamin (vitamin B-12) 1,000 MCG/ML solution 1,000 mcg IM QWEEK RF: 0 acetaminophen 325 MG tablet 650 mg PO Q4H PRN PRN (Reason: Mild Pain (0-3/10)/Headache) Qty: 0 RF: 0 aspirin 81 MG tablet,delayed release (DR/EC) 81 mg PO DAILY RF: 0 magnesium oxide 400 mg magnesium tablet 400 mg PO DAILY Qty: 1 RF: 0 potassium chloride [Klor-Con 8] 8 mEq tablet extended release 8 meq PO BID Qty: 60 RF: 11 hydrochlorothiazide 25 mg tablet 25 mg PO DAILY Qty: 90 RF: 4 Primary Care Provider: Jan Mason Chi
--- NOTE | 2021-09-07 11:40 | RAD_ITS ---
STUDY: X-RAY - LEFT SHOULDER REASON FOR EXAM: Female, 76 years old. Left shoulder pain following a fall. TECHNIQUE: 4 view(s) of the shoulder. COMPARISON: Comparison is made with prior study dated 09/04/2016. FINDINGS: Normal glenohumeral articulation. There is hypertrophic osteoarthrosis of the acromioclavicular joint with inferior osseous spur formation. Normal acromion. Normal humeral head and visualized proximal humerus. The soft tissue structures are unremarkable. Normal visualized pulmonary apex. RAD/Shoulder min 2 Views IMPRESSION: Degenerative changes of the acromioclavicular joint. Electronically Signed: Gary Gregorio MD at 12:07 EDT ,
[2021-09-07] MEDS: Lidocaine 5% Patch 1 PATCH TOPICAL (11:51)
[2021-09-07 13:03] VITALS: BP 150/85; PULSE 66; RESP 14; O2SAT 98
[2021-09-07 13:25] VITALS: O2SAT 98
== END 2021-09-07 13:26 | disposition home or self-care (01) ==
PROVIDERS: Emergency Provider Student in an Organized Health Care Education/Training Program; PCP Family Medicine Geriatric Medicine; Visit Provider Student in an Organized Health Care Education/Training Program
DX: S00.83XA Contusion of other part of head, initial encounter (principal); S40.012A Contusion of left shoulder, initial encounter; E78.5 Hyperlipidemia, unspecified; I10 Essential (primary) hypertension; W01.10XA Fall on same level from slipping, tripping and stumbling with subsequent striking against unspecified object, initial encounter; I34.0 Nonrheumatic mitral (valve) insufficiency; I36.1 Nonrheumatic tricuspid (valve) insufficiency; E66.9 Obesity, unspecified; Z79.82 Long term (current) use of aspirin; Z79.899 Other long term (current) drug therapy
CPT/HCPCS: 73030; 99283

== ENCOUNTER → 2021-09-12 | Outpatient (CLI) | payer OTHER, MEDICARE, SELFPAY ==
--- NOTE | 2021-09-12 15:42 | CT_ITS ---
STUDY: CT BRAIN WITHOUT CONTRAST REASON FOR EXAM: Female, 76 years old. HEAD INJURY TECHNIQUE: Transaxial CT imaging of the brain was performed without administration of intravenous contrast material. Individualized dose optimization techniques were used for this CT. COMPARISON: None FINDINGS: Normal calvarium. Normal soft tissues. Normal size ventricles and extra-axial spaces for the patient''s age. There are areas of decreased attenuation within the white matter tracts of the supratentorial brain, consistent with microvascular disease changes. Normal basal ganglia and thalami. Normal brainstem. Normal cerebellum. There is no intracranial hemorrhage. There are no findings of an acute ischemic infarction. Normal visualized paranasal sinuses. ASPECTS 10 CT/Brain/Head without Contrast IMPRESSION: There are no acute intracranial findings. Electronically Signed: Jorge Blum MD at 16:07 EDT ,
== END | disposition home or self-care (01) ==
LOC: CT 15:41
PROVIDERS: PCP Family Medicine Geriatric Medicine; Referring Provider Family Medicine Geriatric Medicine; Visit Provider Family Medicine Geriatric Medicine
DX: S09.90XA Unspecified injury of head, initial encounter (principal); X58.XXXA Exposure to other specified factors, initial encounter
CPT/HCPCS: 70450

== ENCOUNTER → 2021-09-26 | Outpatient (CLI) | payer MEDICARE, OTHER, SELFPAY ==
[2021-09-26 12:03] LABS: Absolute Lymphocyte Count 1.69 X10^3/uL (0.83-4.51); Absolute Neutrophil Count 4.5 X10^3/uL (2.0-7.7); Basophil# 0.04 X10^3/uL; Basophil% 0.6 % (0-1); Eosinophil# 0.08 X10^3/uL; Eosinophils% 1.2 % (0-5); Hematocrit 40.7 % (37-47); Hemoglobin 13.1 g/dL (12.0-15.0); Lymphocyte # 1.69 X10^3/ul (0.83-4.51); Lymphocyte % 25.1 % (19-41); Mean Corp Hgb Conc 32.2 g/dL (32-36); Mean Corpuscular Hgb 30.5 pg (27.0-32.0); Mean Corpuscular Volume 94.9 fL (81-99); Mean Platelet Vol. 10.5 fl (6.2-12.0); Monocyte# 0.39 X10^3/uL; Monocyte% 5.8 % (0-10); NRBC Flagged by Analyzer 0 % (0-5); Neutrophil % 66.9 % (47-70); Platelet Count 187 K/mm3 (150-450); RBC Distribution Width CV 14.5 % (11.6-14.6); RBC Distribution Width SD 50.4 fl (35.1-43.9); Red Blood Count 4.29 M/mm3 (4.2-5.4); White Blood Count 6.7 K/mm3 (4.4-11.0)
[2021-09-26 12:21] LABS: Vitamin D,25 Hydroxy 27.8 ng/mL
[2021-09-26 12:24] LABS: ALB/GLOB Ratio 0.8 RATIO (0.9-2.4); AST(SGOT) 20 U/L (15-37); Alanine Aminotransfer ALT/SGPT 31 U/L (13-56); Albumin, Serum 3.3 g/dL (3.2-5.0); Alkaline Phosphatase 75 U/L (45-117); Anion Gap 7 (5-15); BUN 26 mg/dL (7-18); BUN/Creat Ratio 22.2 RATIO (10-20); Calcium,Total 9.4 mg/dL (8.5-10.1); Chloride 108 mmol/L (98-107); Cholesterol 235 mg/dL (200); Creatinine, Serum 1.17 mg/dL (0.55-1.02); EST Glomerular Filtration Rate 48 mL/min (>60); Est Glom Filt Rate - Afr Amer 58 mL/min (>60); Globulin 4.2 g/dL (2.2-4.2); Glucose 100 mg/dL (74-106); High Density Lipoprotein 84 mg/dL; Potassium 3.9 mmol/L (3.5-5.1); Protein, Total 7.5 g/dL (6.4-8.2); Sodium Level 142 mmol/L (136-145); Thyroid Stim Hormone (TSH) 1.17 uIU/mL (0.358-3.74); Triglycerides 62 mg/dL; Very Low Density Lipoprotein 12 mg/dL (5-40)
== END | disposition home or self-care (01) ==
LOC: POLAB3 09:30
PROVIDERS: PCP Family Medicine Geriatric Medicine; Visit Provider Family Medicine Geriatric Medicine
DX: I10 Essential (primary) hypertension (principal); E78.5 Hyperlipidemia, unspecified; E55.9 Vitamin D deficiency, unspecified
CPT/HCPCS: 36415; 80053; 80061; 82306; 84443; 85025

== ENCOUNTER → 2021-12-27 | Outpatient (CLI) | payer MEDICARE, OTHER, SELFPAY ==
--- NOTE | 2021-12-27 11:30 | RAD_ITS ---
STUDY: X-RAY - LUMBAR SPINE REASON FOR EXAM: Female, 76 years old. Low back and hip pain TECHNIQUE: 3 view(s) of the lumbar spine were obtained. COMPARISON: None FINDINGS: Normal lumbar lordosis. There is no substantial scoliosis. There is a normal alignment of the vertebrae from L1 to L4 there is a grade 1 spondylolisthesis at L4-5. There is anatomic alignment between L5 and S1. There is multilevel endplate spondylosis of the lumbar vertebrae. Mild disc space narrowing throughout the lumbar spine. There is no demonstrated fracture. There is atherosclerotic calcification of the abdominal aorta without a demonstrated aneurysm. RAD/Lumbar Spine 2 or 3 Views IMPRESSION: Degenerative changes of the spine, as detailed above. No demonstrated fracture or suspicious osseous lesion Grade 1 spondylolisthesis at L4-5 Electronically Signed: Cal Sullivan MD at 15:13 EDT ,
== END | disposition home or self-care (01) ==
LOC: RAD 11:22
PROVIDERS: PCP Family Medicine Geriatric Medicine; Referring Provider Family Medicine Geriatric Medicine; Visit Provider Family Medicine Geriatric Medicine
DX: M25.559 Pain in unspecified hip (principal)
CPT/HCPCS: 72100

== ENCOUNTER → 2022-01-23 | Outpatient (CLI) | payer MEDICARE, OTHER, SELFPAY | END | disposition home or self-care (01) | LOC: LAB.FUTURE 10:53 | PROVIDERS: PCP Family Medicine Geriatric Medicine; Visit Provider Internal Medicine Nephrology | DX: N18.31 Chronic kidney disease, stage 3a (principal) ==

== ENCOUNTER → 2022-01-29 | Outpatient (CLI) | payer MEDICARE, OTHER, SELFPAY ==
--- NOTE | 2022-01-29 11:08 | MRI_ITS ---
STUDY: MRI LUMBAR SPINE WITHOUT CONTRAST REASON FOR EXAM: Female, 76 years old. LOW BACK PAIN TECHNIQUE: Standardized fat and water weighted pulse sequences were obtained in the sagittal and axial planes. COMPARISON: MRI lumbar spine. 12/09/2012. FINDINGS: T12-L1: Mild disc desiccation. Normal lumbar lordosis. There is no substantial scoliosis. Normal conus medullaris that terminates at the L1-2: Mild disc desiccation. L2-3: Mild disc desiccation, mild bilateral facet arthropathy and mild bilateral neural foraminal encroachment L3-4: Moderate disc desiccation and loss of disc space height, moderate left paracentral disc herniation, moderate bilateral facet arthropathy, borderline central stenosis, severe left and moderate right neural foraminal encroachment. Findings at this level or new or progressive as compared to the prior study. L4-5: Desiccation and loss of disc space height. Loss of disc space height is progressive. There is a grade 1-2 spondylolisthesis without spondylolysis. There is a moderate pseudobulge. The pseudobulge is progressive. There is moderate bilateral facet arthropathy, mild central stenosis and severe bilateral neural foraminal encroachment. The neural foraminal encroachment is progressive. L5-S1: Moderate disc desiccation, mild disc bulging, severe bilateral facet arthropathy, moderate bilateral ligamentous hypertrophy, moderately severe bilateral neural foraminal encroachment. Findings at this level are stable. Normal visualized sacral ala. Normal visualized paraspinous soft tissue structures. MRI/Spine Lumbar (Routine) IMPRESSION: L4-5 grade 1-2 spondylolisthesis with moderate pseudobulge. L3-4 moderate left paracentral disc herniation. Mild disc bulging L5-S1. Multilevel degenerative disc disease, central stenosis, facet arthropathy and neural foraminal encroachment as above. Electronically Signed: Anshul Ambrose MD, CHUCK at 16:28 EDT ,
== END | disposition home or self-care (01) ==
LOC: MRI 11:02
PROVIDERS: PCP Family Medicine Geriatric Medicine; Referring Provider Family Medicine Geriatric Medicine; Visit Provider Family Medicine Geriatric Medicine
DX: M54.50 Low back pain, unspecified (principal)
CPT/HCPCS: 72148

== ENCOUNTER → 2022-05-13 | Outpatient (CLI) | payer MEDICARE, OTHER, SELFPAY ==
--- NOTE | 2022-05-13 14:50 | STRESSREP ---
Stress Test Report Pharmacologic myocardial perfusion stress test. 76-year-old lady with a history of chest pain Resting EKG demonstrates sinus rhythm with a rate of 70 bpm. Resting blood pressure is 164/86 mmHg. 0.4 mg of regadenoson was infused per usual protocol followed by rapid intravenous saline flush injection. Continuous EKG monitoring was performed. The maximum heart rate was 100 bpm which was 69% of max impacted heart rate the maximum workload was 1 metabolic equivalent. At rest there were no ST or T wave changes noted to suggest ischemia and at peak infusion nonspecific ST changes were noted which did not meet the criteria for ischemia. No clinical angina is noted. The final blood pressure was 172/82 mmHg. Myocardial perfusion protocol. 14.5 mCi of technetium 99m sestamibi was injected at rest. 0.4 mg of regadenoson was infused per usual protocol. At peak infusion 44.7 mCi of technetium 99m sestamibi was injected stress images were obtained stress and rest images were reconstructed and compared in the short axis vertical long and horizontal long axis. Gated images were also obtained. Perfusion SPECT analysis: Review of the stress images demonstrate normal uptake of tracer noted in all areas of the myocardium. The resting images similar demonstrated normal uptake of tracer noted in all areas of the myocardium. No areas of reversibility are noted to suggest ischemia and no previous infarct is noted. Gated SPECT analysis: The gated ejection fraction is 83%. Conclusion: Normal pharmacologic myocardial perfusion stress test. Preserved ejection fraction.
== END | disposition home or self-care (01) ==
LOC: CVS 07:28
PROVIDERS: PCP Family Medicine Geriatric Medicine; Referring Provider Physician Assistant Medical; Visit Provider Physician Assistant Medical
DX: R07.9 Chest pain, unspecified (principal)
CPT/HCPCS: 78452; 93017; A9500; A4216; J2785

== ENCOUNTER → 2022-06-27 | Outpatient (CLI) | payer MEDICARE, SELFPAY ==
[2022-06-27 17:39] LABS: Absolute Lymphocyte Count 1.83 X10^3/uL (0.83-4.51); Absolute Neutrophil Count 4.1 X10^3/uL (2.0-7.7); Basophil# 0.05 X10^3/uL; Basophil% 0.8 % (0-1); Eosinophil# 0.12 X10^3/uL; Eosinophils% 1.8 % (0-5); Hematocrit 40.2 % (37-47); Hemoglobin 13.2 g/dL (12.0-15.0); Lymphocyte # 1.83 X10^3/ul (0.83-4.51); Lymphocyte % 27.6 % (19-41); Mean Corp Hgb Conc 32.8 g/dL (32-36); Mean Corpuscular Hgb 30.2 pg (27.0-32.0); Mean Platelet Vol. 10.8 fl (6.2-12.0); Monocyte# 0.55 X10^3/uL; Monocyte% 8.3 % (0-10); NRBC Flagged by Analyzer 0 % (0-5); Neutrophil # 4.06 X10^3/uL (2.7-7.7); Neutrophil % 61.2 % (47-70); Platelet Count 188 K/mm3 (150-450); RBC Distribution Width CV 14.7 % (11.6-14.6); RBC Distribution Width SD 49.6 fl (35.1-43.9); Red Blood Count 4.37 M/mm3 (4.2-5.4); White Blood Count 6.6 K/mm3 (4.4-11.0)
[2022-06-27 18:11] LABS: Vitamin D,25 Hydroxy 26.3 ng/mL
[2022-06-27 18:23] LABS: ALB/GLOB Ratio 0.8 RATIO (0.9-2.4); AST(SGOT) 22 U/L (15-37); Alanine Aminotransfer ALT/SGPT 27 U/L (13-56); Albumin, Serum 3.4 g/dL (3.2-5.0); Alkaline Phosphatase 82 U/L (45-117); Anion Gap 8 (5-15); BUN 17 mg/dL (7-18); BUN/Creat Ratio 15.7 RATIO (10-20); Calcium,Total 9.6 mg/dL (8.5-10.1); Chloride 105 mmol/L (98-107); Creatinine, Serum 1.08 mg/dL (0.55-1.02); EST Glomerular Filtration Rate 52 mL/min (>60); Est Glom Filt Rate - Afr Amer 63 mL/min (>60); Globulin 4.3 g/dL (2.2-4.2); Glucose 95 mg/dL (74-106); Potassium 3.7 mmol/L (3.5-5.1); Protein, Total 7.7 g/dL (6.4-8.2); Sodium Level 141 mmol/L (136-145); Thyroid Stim Hormone (TSH) 0.87 uIU/mL (0.358-3.74)
== END | disposition home or self-care (01) ==
PROVIDERS: PCP Family Medicine Geriatric Medicine; Visit Provider Family Medicine Geriatric Medicine
DX: I10 Essential (primary) hypertension (principal); E55.9 Vitamin D deficiency, unspecified
CPT/HCPCS: 36415; 80053; 82306; 84443; 85025

== ENCOUNTER → 2022-08-30 | Outpatient (CLI) | payer MEDICARE, SELFPAY ==
--- NOTE | 2022-08-30 14:57 | RAD_ITS ---
EXAM: XR RIGHT ANKLE COMPLETE, 3 OR MORE VIEWS CLINICAL INDICATION: PAIN TECHNIQUE: Frontal, lateral and oblique views of the right ankle. COMPARISON: No relevant prior studies available. FINDINGS: BONES/JOINTS: The bones are mildly demineralized. No fracture. The proximal metatarsals are included. Preservation of the joint space. No sclerotic or destructive changes observed. SOFT TISSUES: Mild soft tissue swelling at the medial and lateral ankle. No radiopaque foreign body. RAD/Ankle min 3 Views IMPRESSION: Mild soft tissue swelling. Demineralization. Electronically Signed: Coral Hurt MD at 9:18 EDT ,
--- NOTE | 2022-08-30 15:00 | RAD_ITS ---
EXAM: XR LEFT SHOULDER COMPLETE, 2 OR MORE VIEWS CLINICAL INDICATION: PAIN TECHNIQUE: Two or more views of the left shoulder. COMPARISON: September 07, 2021. FINDINGS: BONES/JOINTS: Minimal periarticular osteophytes at the AC joint. Unremarkable glenohumeral joint. Unremarkable included left ribs. No acute fracture. No subluxation. Normal alignment. No sclerotic or destructive changes observed. SOFT TISSUES: Unremarkable. No soft tissue swelling or gas. No radiopaque foreign body. OTHER FINDINGS: 4 views. RAD/Shoulder min 2 Views IMPRESSION: Electronically Signed: Coral Hurt MD at 9:20 EDT ,
== END | disposition home or self-care (01) ==
LOC: RAD 14:50
PROVIDERS: PCP Family Medicine Geriatric Medicine; Referring Provider Family Medicine Geriatric Medicine; Visit Provider Family Medicine Geriatric Medicine
DX: M25.572 Pain in left ankle and joints of left foot (principal)
CPT/HCPCS: 73030; 73610

== ENCOUNTER → 2022-09-30 | Outpatient (CLI) | payer MEDICARE, SELFPAY ==
--- NOTE | 2022-09-30 13:28 | BI_ITS ---
MAMMOGRAPHY - BILATERAL SCREENING REASON FOR EXAM: Female, 77 years old. Routine annual screening examination. PERTINENT HISTORY: Non-contributory. History of prior left stereotactic breast biopsy. TECHNIQUE: Digital bilateral breast randi (3D mammographic acquisition) in the CC and MLO projections. 2-D mediolateral oblique (MLO) and craniocaudad (CC) views of both breasts were obtained. CAD: Full Field Digital Mammography with Computer Added Detection was performed. COMPARISON: Comparison is made with prior study of May 22, 2021 and June 01, 2019. FINDINGS: Breast Composition: The breasts are almost entirely fatty. There are no dominant masses or suspicious calcifications. No other significant abnormalities are identified. There has been no significant change since the prior study. BI/SCRN MAMM (CAD)W/RANDI BILAT IMPRESSION: Stable bilateral screening mammogram. Yearly follow-up mammogram recommended. (A) ASSESSMENT CATEGORY: BIRADS Category 1: Negative. A letter regarding these results will be sent to the patient by the facility within 30 days. Approximately 10% of breast cancers are not detected by mammography. A normal mammogram should not delay biopsy of a clinically suspicious abnormality. [id number] Electronically Signed: Gary Gregorio MD at 14:33 EDT ,
== END | disposition home or self-care (01) ==
PROVIDERS: PCP Family Medicine Geriatric Medicine; Referring Provider Obstetrics & Gynecology Gynecology; Visit Provider Obstetrics & Gynecology Gynecology
DX: Z12.31 Encounter for screening mammogram for malignant neoplasm of breast (principal); R35.0 Frequency of micturition
CPT/HCPCS: 77063; 77067; 87077; 87086; 87088; 87186

== ENCOUNTER → 2022-11-06 | Outpatient (CLI) | payer MEDICARE, SELFPAY | END | disposition home or self-care (01) | LOC: PSN 12:16 | PROVIDERS: PCP Family Medicine Geriatric Medicine; Referring Provider Family Medicine Geriatric Medicine; Visit Provider Family Medicine Geriatric Medicine | DX: R68.83 Chills (without fever) (principal) | CPT/HCPCS: 87635; 87804; 87807; C9803 ==

== ENCOUNTER → 2023-01-01 | Outpatient (CLI) | payer MEDICARE, SELFPAY ==
[2023-01-01 15:48] LABS: Absolute Lymphocyte Count 1.92 X10^3/uL (0.83-4.51); Absolute Neutrophil Count 5.1 X10^3/uL (2.0-7.7); Basophil# 0.06 X10^3/uL; Basophil% 0.8 % (0-1); Eosinophil# 0.09 X10^3/uL; Eosinophils% 1.2 % (0-5); Hemoglobin 13.1 g/dL (12.0-15.0); Lymphocyte # 1.92 X10^3/ul (0.83-4.51); Lymphocyte % 25.1 % (19-41); Mean Corpuscular Hgb 29.9 pg (27.0-32.0); Mean Corpuscular Volume 93.6 fL (81-99); Mean Platelet Vol. 10.3 fl (6.2-12.0); Monocyte# 0.47 X10^3/uL; Monocyte% 6.2 % (0-10); NRBC Flagged by Analyzer 0 % (0-5); Neutrophil # 5.07 X10^3/uL (2.7-7.7); Neutrophil % 66.3 % (47-70); Platelet Count 210 K/mm3 (150-450); RBC Distribution Width CV 14.3 % (11.6-14.6); RBC Distribution Width SD 49.2 fl (35.1-43.9); Red Blood Count 4.38 M/mm3 (4.2-5.4); White Blood Count 7.6 K/mm3 (4.4-11.0)
[2023-01-01 16:07] LABS: Vitamin D,25 Hydroxy 29.2 ng/mL
[2023-01-01 16:19] LABS: ALB/GLOB Ratio 0.8 RATIO (0.9-2.4); AST(SGOT) 9 U/L (15-37); Alanine Aminotransfer ALT/SGPT 21 U/L (13-56); Albumin, Serum 3.3 g/dL (3.2-5.0); Alkaline Phosphatase 83 U/L (45-117); Anion Gap 4 (5-15); BUN 16 mg/dL (7-18); BUN/Creat Ratio 14.8 RATIO (10-20); Calcium,Total 9.3 mg/dL (8.5-10.1); Chloride 111 mmol/L (98-107); Creatinine, Serum 1.08 mg/dL (0.55-1.02); EST Glomerular Filtration Rate 52 mL/min (>60); Est Glom Filt Rate - Afr Amer 63 mL/min (>60); Globulin 4.2 g/dL (2.2-4.2); Glucose 114 mg/dL (74-106); Potassium 3.7 mmol/L (3.5-5.1); Protein, Total 7.5 g/dL (6.4-8.2); Sodium Level 142 mmol/L (136-145); Thyroid Stim Hormone (TSH) 1.32 uIU/mL (0.358-3.74)
== END | disposition home or self-care (01) ==
PROVIDERS: PCP Family Medicine Geriatric Medicine; Visit Provider Family Medicine Geriatric Medicine
DX: I10 Essential (primary) hypertension (principal); E55.9 Vitamin D deficiency, unspecified
CPT/HCPCS: 36415; 80053; 82306; 84443; 85025

== ENCOUNTER → 2023-01-16 | Outpatient (CLI) | payer MEDICARE, SELFPAY ==
--- NOTE | 2023-01-16 10:09 | CPS ---
Pre and Post bronchodilator ordered
--- NOTE | 2023-01-17 05:53 | SPIR_ITS ---
Spirometry PFT Testing Spirometry PFT Testing: COMPLETE PULMONARY FUNCTION TEST INTERPRETATION Brief HPI: Patient is a 77-year-old Black female, currently under the care of Dr. Mason, who presents to [facility] for complete pulmonary function tests secondary to diagnosis of wheezing. Respiratory therapist reports good effort and reproducible results. Interpretation: Forced expiration spirometry shows no large airways obstructive ventilatory defect with an FEV1 of 116% predicted. There is no significant bronchodilator response by strict ATS criteria. Spirograms are of good quality and plateau normally. The respiratory flow volume loop shows a normal pattern. Compared to previous pulmonary function tests from May 2021, there has been no significant change. Impression: Grossly normal spirometry
== END | disposition home or self-care (01) ==
LOC: PSN 09:37
PROVIDERS: PCP Family Medicine Geriatric Medicine; Referring Provider Family Medicine Geriatric Medicine; Visit Provider Family Medicine Geriatric Medicine
DX: R06.2 Wheezing (principal)
CPT/HCPCS: 94060

== ENCOUNTER → 2023-02-13 | Outpatient (CLI) | payer MEDICARE, SELFPAY ==
[2023-02-13 17:44] LABS: Erythrocyte Sedimentation Rate 27 mm/hr (0-30)
[2023-02-13 17:46] LABS: Absolute Lymphocyte Count 1.79 X10^3/uL (0.83-4.51); Basophil# 0.04 X10^3/uL; Basophil% 0.6 % (0-1); Eosinophil# 0.15 X10^3/uL; Eosinophils% 2.3 % (0-5); Hematocrit 40.7 % (37-47); Lymphocyte # 1.79 X10^3/ul (0.83-4.51); Lymphocyte % 27.4 % (19-41); Mean Corp Hgb Conc 31.9 g/dL (32-36); Mean Corpuscular Volume 93.8 fL (81-99); Mean Platelet Vol. 10.4 fl (6.2-12.0); Monocyte# 0.53 X10^3/uL; Monocyte% 8.1 % (0-10); NRBC Flagged by Analyzer 0 % (0-5); Neutrophil % 61.1 % (47-70); Platelet Count 196 K/mm3 (150-450); RBC Distribution Width CV 14.4 % (11.6-14.6); RBC Distribution Width SD 49.9 fl (35.1-43.9); Red Blood Count 4.34 M/mm3 (4.2-5.4); White Blood Count 6.5 K/mm3 (4.4-11.0)
[2023-02-13 18:22] LABS: Anion Gap 6 (5-15); BUN 19 mg/dL (7-18); BUN/Creat Ratio 18.6 RATIO (10-20); Chloride 107 mmol/L (98-107); Creatinine, Serum 1.02 mg/dL (0.55-1.02); EST Glomerular Filtration Rate 56 mL/min (>60); Est Glom Filt Rate - Afr Amer 68 mL/min (>60); Glucose 95 mg/dL (74-106); Potassium 4.1 mmol/L (3.5-5.1); Sodium Level 140 mmol/L (136-145)
[2023-02-13 18:44] LABS: M R Staph aureus DNA By PCR Negative (Negative); Probe Check PASS; Specimen Processing Control PASS; Staph aureus DNA By PCR NEGATIVE (Negative)
== END | disposition home or self-care (01) ==
LOC: POLAB3 16:44
PROVIDERS: PCP Family Medicine Geriatric Medicine; Visit Provider Family Medicine Geriatric Medicine
DX: L03.115 Cellulitis of right lower limb (principal); I10 Essential (primary) hypertension
CPT/HCPCS: 36415; 80048; 85025; 85652; 86140; 87070; 87077; 87186; 87205; 87640

== ENCOUNTER 2023-02-26 14:00 | Outpatient (RCR) | payer MEDICARE, SELFPAY ==
[2023-02-19 12:23] VITALS: BP 193/84; PULSE 84; RESP 20; TEMP 36.3; BMI 39.9
--- NOTE | 2023-02-19 13:20 | HP.PCM_ITS ---
History of Present Illness Date of Service: 02/19/23 Chief Complaint: Nonhealing wound right ankle History of Wound: This is a 71-year-old -Gabonese female with a past medical history of hypertension, palpitations, obesity who presents to the wound healing center today with complaint of a nonhealing ulcer on right lateral ankle ?2 months. The patient presented to [facility] emergency department on 05/10/2017 with complaint of cutting her right lateral ankle open after hitting it on the edge of a refrigerator door. The patient was placed on Bactrim and completed the duration of antibiotics and then follow-up with her PCP who had placed her on another antibiotic as well. Patient is unsure which antibiotic that was. The patient states that the nonhealing wound has been tender and that there is a small amount of light yellow drainage from it. She states that the main stay of treatment she has been doing so far is covering it with a Band-Aid. She has not been using any compression. She denies any signs of systemic infection specifically any redness, warmth, or increase in pain. The patient otherwise denies any fever, chills, nausea, vomiting, shortness of breath, chest pain or pressure, palpitations, orthopnea, lower extremity edema, syncope or presyncopal episodes. Progress of Wound: Mrs. Workman is a 77-year-old female sent to the wound care center today [facility] for full-thickness laceration to the right leg. Patient sustained her laceration while at the airport in [place] and traveled down to [place] where she was treated by an outside provider. Patient presents today for evaluation with Dr. Rodrigues for concerns of a nonhealing wound to the right leg. She has been placed on oral antibiotics but still has evidence of the ulceration with some evidence of serous drainage. She denies constitutional symptoms. Of the complaints at this time. [facility] Medical History (Updated 02/19/23 @ 13:[address] Art Rodrigues, DPM) Bilateral lower extremity edema Decreased pedal pulses Edema Essential (primary) hypertension Hyperlipidemia 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 Nonrheumatic mitral (valve) insufficiency Nonrheumatic tricuspid (valve) insufficiency Obesity, Class II, BMI 35-39.9 Osteoarthritis Home Medications acetaminophen 325 mg tablet 650 mg (2 x 325 mg) PO Q4H PRN PRN Mild Pain (0- 3/10)/Headache #0 tabs 07/19/14 [Rx Last Taken 02/19/23] aspirin 81 mg tablet,delayed release 81 mg PO DAILY 04/16/16 [History Last Taken 02/19/23] cholecalciferol (vitamin D3) 125 mcg (5,000 unit) capsule 5,000 unit PO QDAY 04/10/17 [History Last Taken 02/19/23] dexlansoprazole 30 mg capsule,biphase delayed release (Dexilant) 30 mg PO QDAY 04/10/17 [History Last Taken 02/19/23] vitamin E mixed 1,000 unit capsule 1,000 unit PO .OD 04/11/17 [History Last Taken 02/19/23] potassium chloride 8 mEq tablet,extended release (Klor-Con) 8 meq PO BID #60 tabs 07/06/20 [Rx Last Taken 02/19/23] amlodipine 5 mg tablet (Norvasc) 5 mg PO DAILY #90 tabs 04/26/22 [Rx Last Taken 02/19/23] hydrochlorothiazide 25 mg tablet 25 mg PO DAILY 04/26/22 [History Last Taken 02/19/23] losartan 25 mg tablet 25 mg PO DAILY #90 tabs 08/22/22 [Rx Last Taken 02/19/23] Allergy/AdvReac Type Severity Reaction Status Date / Time milk Allergy Unknown unknown Verified 02/19/23 12:39 lisinopril AdvReac Intermediate cough Verified 02/19/23 12:39 ibuprofen [From Motrin] AdvReac Mild Other Verified 02/19/23 12:39 naproxen sodium [From Aleve] AdvReac Mild Swelling Verified 02/19/23 12:39 Family History Mother Cancer Hypertension Surgical History H/O knee surgery Social History Smoking Status: Never smoker Vital Signs Vital Signs Vital Signs: 02/19/23 12:23 Temperature 97.4 F L Temperature Source Temporal Pulse Rate 84 Respiratory Rate 20 H Blood Pressure 193/84 H Blood Pressure Mean 120 Blood Pressure Source Monitor Weight Weight: 95.788 kg Body Mass Index (BMI) 39.9 Physical Exam Narrative Vascular: DP is triphasic on Doppler, PT is biphasic on Doppler to the right lower extremity. CFT is brisk. Symptoms grade is 1 4 of the proximal ankle to distal digits right lower extremity. No erythema or proximal streaking. Neurological: Light touch and epicritic station is intact. Dermatological: Full-thickness ulceration secondary to trauma to the right leg measuring. 5.7 x 2.2 x 0.4 cm. Evidence of serous drainage with central eschar. There is also concern underneath the eschar of exposed tibial bone. Musculoskeletal: Mild property tenderness appreciated full-thickness ulceration to the right leg. No pain with calf pressure. Debridement Note Debridement Note Post-Debridement Measurements and Additional Note: Post-Debridement Measurements/Treatment - Nurse 1 - General Ulcer Assessment Start: 02/19/23 12:20 Freq: Status: Active Protocol: RANCHO Activity Type Activity Date Activity User E-sign Co-sign Detail Recorded Client Recorded Date Recorded By Document 02/19/23 12:23 Desktop 02/19/23 12:37 02/19/23 12:23 - Today's Visit Information Type of service Initial Visit Arrival Mode Ambulatory Transfer Assistance None Patient Identification Verified (Name & Yes ) Patient Requires Transmission-Based No Precautions Height and Weight Height 5 ft 1 in Weight 95.788 kg Weight in Pounds 211.2 lbs Body Mass Index (BMI) 39.9 BMI Classification Obese BSA - Shweta 1.93 Vital Signs Temperature (97.8 F-99.1 F) 97.4 F L Temperature Source Temporal Pulse Rate (60-100) 84 Pulse Location Monitor Respiratory Rate (12-18) 20 H Respiratory rate source Observation Blood Pressure (90/60-120/80) 193/84 H Blood Pressure Mean 120 Source Monitor Pain Scale: 0-10 Numeric Is Patient Pain Free? Yes Lower Extremity Assessment/ Foot Assessment/ Toe Nail Assessment Left -Posterior Tibial Palpable No -Extremity Color Hemosiderin -Hair Growth on Legs No -Hair Growth on Toes No -Temperature of Extremity Warm -Capillary Refill Greater than 3 Seconds -Dependent Rubor No -Blanched when Elevated No -Lipodermatosclerosis No -Other Deformity No -Prior Foot Ulcer No -Charcot Joint No -Prior Amputation No -Thick No -Discolored No -Deformed No -Improper Length & Hygeine No Right -Posterior Tibial Palpable No -Dorsalis Pedis Palpable No -Extremity Color Hemosiderin -Hair Growth on Legs No -Hair Growth on Toes No -Temperature of Extremity Warm -Capillary Refill Greater than 3 Seconds -Other Deformity No -Prior Foot Ulcer No -Charcot Joint No -Prior Amputation No -Thick No -Discolored No -Deformed No -Improper Length & Hygeine No Neuropathy Assessment Feet - Top Side and Bottom <Entered> (a) Communication Assessment Preferred language Mohawk Able to Read Yes Able to Write Yes Communication Tools None Right Hearing Abillity Normal Left Hearing Abillity Normal Visual Assistive Devices Glasses Teaching Assessment Preferences Verbal,Written Barriers to Learning None Readiness To Learn Good Willingness to Engage in Self Management Med Activies Readiness to Engage in Self Management Med Activities Anxiety Level Anxious Cooperation Cooperative Perception Coherent Interest in Health Problem Asks Questions Education Importance Acknowledges Need Does Patient Smoke tobacco or other No substances Smoking Status Never smoker Is Patient Diabetic No Functional Assessment Recent Decline in Ability to Perform Denies Any Declines Culture/Evangelical/Multimedia Educational Specialist Cultural/Evangelical Needs that may affect No Treatment Plan Would you allow our hospital gas distribution plant operator to No meet you for the purpose of spiritual/ emotional support? Multimedia Educational Specialist to contact place of quaker No Teaching: Wound Center Discharge Instructions -Person Taught Patient Control Swelling with Leg Elevation -Person Taught Patient Compression Wraps & Stockings -Person Taught Patient Dressing Your Wound -Person Taught Patient *Debridement -Person Taught Patient (a) 1 - + WC - Nurse 1 - General Ulcer Measurement Start: 02/19/23 12:20 Freq: Status: Active Protocol: Activity Type Activity Date Activity User E-sign Co-sign Detail Recorded Client Recorded Date Recorded By Document 02/19/23 12:23 Desktop 02/19/23 12:37 02/19/23 12:23 Wound Center Nurse 1 #2 R Valdez -Current Size (cm) - Length 5.7 -Current Size (cm) - Width 2.2 -Current Size (cm) - Depth 0.4 -Total Square Cm 12.54 -Photo Taken Yes -Classification - Thickness Full Thickness without Exposed Support Structure -Exudate Amt Medium -Exudate Type Serosanguineous -Wound Margin Distinct, Outline Attached -Granulation Amt Small (1-33%) -Granulation Quality Red -Necrosis Amt Large (67-100%) -Necrotic Tissue Type Adherent Slough -Structure Exposed N/A -Texture (Gladys-wound Skin Appearance) Localized Edema -Moisture (Gladys-wound Skin Appearance) No Abnormality -Color (Gladys-wound Skin Appearance) Hemosiderin Staining -Temperature (Gladys-wound Skin No Abnormality Appearance) (Pt Warm) -Tenderness on Palpation (Gladys-wound Yes Skin Appearance) -Ulcer Cleansing Soap and Water -Foul Odor after Cleansing No -Anesthetic Used 4% Lidocaine Solution Right Calf (cm) 42 Right Ankle (cm) 22.5 Left Calf (cm) 37.5 Left Ankle (cm) 21.6 - Nurse 2 - General Ulcer CM Notes Start: 02/19/23 12:20 Freq: Status: Active Protocol: Activity Type Activity Date Activity User E-sign Co-sign Detail Recorded Client Recorded Date Recorded By Document 02/19/23 12:52 Laptop 02/19/23 12:55 02/19/23 12:52 Wound Center Nurse 2 #2 R Valdez -Correct Patient No -Correct Side, Site, Position No -Correct Procedure No -Procedure Performed No -Wound/Ulcer Outcome Not Healed -Offloading No Pain Scale: 0-10 Numeric Is Patient Pain Free? Yes - Nurse 3 - General Ulcer D/C NN Start: 02/19/23 12:20 Freq: Status: Active Protocol: Activity Type Activity Date Activity User E-sign Co-sign Detail Recorded Client Recorded Date Recorded By Document 02/19/23 13:02 Desktop 02/19/23 13:04 DL 02/19/23 13:02 Wound Care Center Nurse 3 #2 R Valdez -Ulcer Cleansing Soap and Water -Foul Odor after Cleansing No -Primary Dressing Applied Hysept ($) -Primary Dressing Covered/Secured with Dry Gauze & Roll Gauze, Secured with Tape Right -Tubular Bandage Single Layer -Size of Tubigrip Used Size E -Size E ($) 1 Treatment Response Procedure Tolerated Well Pain Scale: 0-10 Numeric Is Patient Pain Free? Yes - Visit Discharge Discharge Condition Stable Ambulatory Status Ambulatory,Cane Transportation Private Auto Accompanied by Notes: pt to be scheduled for surgery with Dr Albaro Rodrigues. 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 All findings were discussed with the patient. All questions were answered to the patient satisfaction. Patient's right leg ulceration will need surgical debridement. We will begin booking the patient for washout possible musculotendinous flap as well as surgical prep and skin graft substitute application to the right lower extremity. She will follow-up with her primary doctor tomorrow for surgical clearance. Cultures were taken of the right leg. We will follow-up on microbiology and culture sensitivity when available. The patient right leg wound was dressed with Dakin's, bordered foam and single-layer Tubigrip. She will follow-up in 1 week. (2) Laceration of right lower leg: CODE(S): S81.811A - Laceration without foreign body, right lower leg, initial encounter QUALIFIERS: Encounter type: initial encounter Qualified Code(s): S81.811A - Laceration without foreign body, right lower leg, initial encounter (3) Pain in right leg: CODE(S): M79.604 - Pain in right leg
--- NOTE | 2023-02-25 09:46 | WC ---
Notified Dr. Rodrigues of patient's positive wound culture. He ordered Cipro and I called it into [facility]. Left a voicemail with patient letting her know of the results of wound culture and to picker and packer her antibiotic as soon as possible. If she has any questions to call us at [phone].
[2023-02-26 13:58] VITALS: BP 182/72; PULSE 69; TEMP 36.4; BMI 39.9
--- NOTE | 2023-02-26 14:26 | PCM.WC.PN ---
History of Present Illness Date of Service: 02/26/23 Chief Complaint: Nonhealing wound right ankle History of Wound: This is a 71-year-old -Tuval[place] female with a past medical history of hypertension, palpitations, obesity who presents to the wound healing center today with complaint of a nonhealing ulcer on right lateral ankle ?2 months. The patient presented to [facility] emergency department on 05/10/2017 with complaint of cutting her right lateral ankle open after hitting it on the edge of a refrigerator door. The patient was placed on Bactrim and completed the duration of antibiotics and then follow-up with her PCP who had placed her on another antibiotic as well. Patient is unsure which antibiotic that was. The patient states that the nonhealing wound has been tender and that there is a small amount of light yellow drainage from it. She states that the main stay of treatment she has been doing so far is covering it with a Band-Aid. She has not been using any compression. She denies any signs of systemic infection specifically any redness, warmth, or increase in pain. The patient otherwise denies any fever, chills, nausea, vomiting, shortness of breath, chest pain or pressure, palpitations, orthopnea, lower extremity edema, syncope or presyncopal episodes. Progress of Wound: Mrs. Workman is a 77-year-old female sent to the wound care center today [facility] for full-thickness laceration to the right leg. Patient sustained her laceration while at the airport in [place] and traveled down to [place] where she was treated by an outside provider. Patient presents today for evaluation with Dr. Rodrigues for concerns of a nonhealing wound to the right leg. She has been placed on oral antibiotics but still has evidence of the ulceration with some evidence of serous drainage. She denies constitutional symptoms. Of the complaints at this time. Subjective Subjective Mrs. Workman is a 77-year-old female presenting to the wound care center today [facility] for a chief complaint of full-thickness leg ulceration secondary to trauma to the right leg. Patient has been on the oral antibiotics, ciprofloxacin as written. She has been doing home dressing changes with Dakin and gauze. She admits there is some pain to the right leg laceration. She denies any new onset of trauma. Denies constitutional symptoms. No other pedal complaints at this time. Objective Data Objective Data Vital Signs: Vital Signs Temp Pulse Resp BP O2 Del Method 97.6 F L 69 20 H 182/72 H Room Air 02/26/23 13:58 02/26/23 13:58 02/19/23 12:23 02/26/23 13:58 02/26/23 13:58 Oxygen Delivery Method Room Air Weight: 95.788 kg Body Mass Index (BMI) 39.9 Lab / Micro Data Micro: Microbiology 02/19/23 Unknown Wound - Leg, Right Gram Stain - Final 02/19/23 Unknown Wound - Leg, Right Wound Culture - Final Pseudomonas aeruginosa 02/19/23 Unknown Wound - Leg, Right Anaerobic Culture - Final No anaerobic bacteria isolated. Physical Exam Narrative Vascular: DP is triphasic on Doppler, PT is biphasic on Doppler to the right lower extremity. CFT is brisk. Skin temperature gradient is warm to warm from proximal ankles to distal digits of the right lower extremity. No erythema or proximal streaking. Neurological: Light touch and epicritic station is intact. Dermatological: Full-thickness ulceration secondary to trauma to the right leg measuring. 5.5 x 2.2 x 0.3 cm. Evidence of serous drainage with central eschar. There is also concern underneath the eschar of exposed tibial bone. Excision debridement down to and including subcutaneous tissue with a #15 blade and pickup without incident. To the right anterior full-thickness laceration. Predebridement measurement was 5.0 x 2.0 x 0.2 cm. Postdebridement measurements 5.5 x 2.2 x 0.3 cm. Musculoskeletal: Mild property tenderness appreciated full-thickness ulceration to the right leg. No pain with calf pressure. Debridement Note Debridement Note Debridement Free Text: Excision debridement down to and including subcutaneous tissue with a #15 blade and pickup without incident. To the right anterior full-thickness laceration. Predebridement measurement was 5.0 x 2.0 x 0.2 cm. Postdebridement measurements 5.5 x 2.2 x 0.3 cm. 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 ) Arrival Mode Ambulatory Ambulatory Transfer Assistance None None Accompanied by spouse Patient Identification Verified (Name & Yes Yes ) Patient Requires Transmission-Based No No Precautions Safety Precautions Fall Prevention Height and Weight Height 5 ft 1 in Weight 95.788 kg Weight in Pounds 211.2 lbs Body Mass Index (BMI) 39.9 39.9 BMI Classification Obese Obese BSA - Shweta 1.93 Vital Signs Temperature (97.8 F-99.1 F) 97.4 F L 97.6 F L Temperature Source Temporal Temporal Pulse Rate (60-100) 84 69 Pulse Location Monitor Monitor Respiratory Rate (12-18) 20 H Respiratory rate source Observation Oxygen Delivery Method Room Air Blood Pressure (90/60-120/80) 193/84 H 182/72 H Blood Pressure Mean (mm Hg) 120 108 Source Monitor Monitor Position Semi-Fowlers Blood Pressure Location Right Arm History Since Last Visit- (Skip if this is Patient's initial visit) Have you changed medications since your No last visit? Any new allergies or adverse reactions No Had a fall/change in ADL's that may No increase risk of falls Signs or symptoms of abuse and/or No neglect since last visit Have you been in the hospital since your No last visit? Has dressing in place as prescribed Yes Has compression in place as prescribed Yes Has offloadiing in place as prescribed N/A Experienced any changes in pain level or No management Left Footwear Regular Shoe Right Footwear Regular Shoe Pain Scale: 0-10 Numeric Is Patient Pain Free? Yes Yes Lower Extremity Assessment/ Foot Assessment/ Toe Nail Assessment Left -Posterior Tibial Palpable No -Extremity Color Hemosiderin -Hair Growth on Legs No -Hair Growth on Toes No -Temperature of Extremity Warm -Capillary Refill Greater than 3 Seconds -Dependent Rubor No -Blanched when Elevated No -Lipodermatosclerosis No -Other Deformity No -Prior Foot Ulcer No -Charcot Joint No -Prior Amputation No -Thick No -Discolored No -Deformed No -Improper Length & Hygeine No Right -Posterior Tibial Palpable No -Dorsalis Pedis Palpable No -Extremity Color Hemosiderin -Hair Growth on Legs No -Hair Growth on Toes No -Temperature of Extremity Warm -Capillary Refill Greater than 3 Seconds -Other Deformity No -Prior Foot Ulcer No -Charcot Joint No -Prior Amputation No -Thick No -Discolored No -Deformed No -Improper Length & Hygeine No Neuropathy Assessment Feet - Top Side and Bottom <Entered> (a) Communication Assessment Preferred language Fijian Able to Read Yes Able to Write Yes Communication Tools None Right Hearing Abillity Normal Left Hearing Abillity Normal Visual Assistive Devices Glasses Teaching Assessment Preferences Verbal,Written Barriers to Learning None Readiness To Learn Good Willingness to Engage in Self Management Med Activies Readiness to Engage in Self Management Med Activities Anxiety Level Anxious Cooperation Cooperative Perception Coherent Interest in Health Problem Asks Questions Education Importance Acknowledges Need Does Patient Smoke tobacco or other No substances Smoking Status Never smoker Is Patient Diabetic No Functional Assessment Recent Decline in Ability to Perform Denies Any Declines Culture/Voodoo/Human Capital Consultant Cultural/Voodoo Needs that may affect No Treatment Plan Would you allow our hospital forest biometrics professor to No meet you for the purpose of spiritual/ emotional support? Human Capital Consultant to contact place of religion No Teaching: Wound Center Discharge Instructions -Person Taught Patient Control Swelling with Leg Elevation -Person Taught Patient Compression Wraps & Stockings -Person Taught Patient Dressing Your Wound -Person Taught Patient *Debridement -Person Taught Patient (a) 1 - + WC - Nurse 1 - General Ulcer Measurement Start: 02/19/23 12:20 Freq: Status: Active Protocol: Activity Type Activity Date Activity User E-sign Co-sign Detail Recorded Client Recorded Date Recorded By Document 02/19/23 12:23 Desktop 02/19/23 12:37 Document 02/26/23 13:58 Desktop 02/26/23 14:10 02/19/23 02/26/23 12:23 13:58 Wound Center Nurse 1 #2 R Valdez -Combined with other wound No -Current Size (cm) - Length 5.7 5.5 -Current Size (cm) - Width 2.2 3 -Current Size (cm) - Depth 0.4 0.3 -Total Square Cm 12.54 16.5 -Photo Taken Yes No -Epithelialization Small 1-33% -Classification - Thickness Full Thickness without Exposed Support Structure -Exudate Amt Medium Medium -Exudate Type Serosanguineous Serous -Wound Margin Distinct, Distinct, Outline Outline Attached Attached -Granulation Amt Small (1-33%) Small (1-33%) -Granulation Quality [place] -Necrosis Amt Large (67-100%) Medium (34-66%) -Necrotic Tissue Type Adherent Slough Eschar -Structure Exposed N/A -Texture (Gladys-wound Skin Appearance) Localized Edema Assessed -Moisture (Gladys-wound Skin Appearance) No Abnormality Assessed -Color (Gladys-wound Skin Appearance) Hemosiderin Assessed Staining -Temperature (Gladys-wound Skin No Abnormality No Abnormality Appearance) (Pt Warm) (Pt Warm) -Tenderness on Palpation (Gladys-wound Yes No Skin Appearance) -Ulcer Cleansing Soap and Water Soap and Water -Foul Odor after Cleansing No No -Anesthetic Used 4% Lidocaine 5% Lidocaine Solution Gel Lower Limb Edema Present NA Right Calf (cm) 42 41.5 Right Ankle (cm) 22.5 22.0 Left Calf (cm) 37.5 Left Ankle (cm) 21.6 WC - Nurse 2 - General Ulcer CM Notes Start: 02/19/23 12:20 Freq: Status: Active Protocol: Activity Type Activity Date Activity User E-sign Co-sign Detail Recorded Client Recorded Date Recorded By Document 02/19/23 12:52 Laptop 02/19/23 12:55 Edit Result 02/19/23 12:52 JF (1) [id number] 02/20/23 07:54 Document 02/26/23 14:18 Laptop 02/26/23 14:21 (1) #2 R Valdez - Correct Patient No => Yes - Correct Side, Site, Position No => Yes - Correct Procedure No => Yes - Procedure Performed No => Yes - Type of Procedure => Debridement - Clinical Debridement => Epidermis / Dermis - Tissue Removed => Epidermis,Dermis - Post Debridement (cm) - Length => 0.1 - Post Debridement (cm) - Width => 0.1 - Post Debridement (cm) - Depth => 0.1 - Total Square (Post) (cm) => 0.01 - Area of Debridement (cm) - Length => 0.1 - Area of Debridement (cm) - Width => 0.1 - Total Square (Area) (cm) => 0.01 - Tunneling => No - Undermining/Tunneling => No - Circular Undermining => No - Ulcer Cleansing => Rinsed/Irrigated => with Saline - Foul Odor after Cleansing => No - Bioengineered Tissue => No - Bleeding Controlled with => Pressure - Treatment Response => Procedure => Tolerated Well - Debridement - Open, 1st 20sq cm => Yes 02/19/23 02/26/23 12:52 14:18 Wound Center Nurse 2 #2 R Valdez -Time 14:20 -Correct Patient Yes Yes -Correct Side, Site, Position Yes Yes -Correct Procedure Yes Yes -Procedure Performed Yes Yes -Type of Procedure Debridement Debridement -Clinical Debridement Epidermis / Subcutaneous Dermis -Tissue Removed Epidermis, Subcutaneous Dermis -Post Debridement (cm) - Length 0.1 5.5 -Post Debridement (cm) - Width 0.1 2.2 -Post Debridement (cm) - Depth 0.1 0.2 -Total Square (Post) (cm) 0.01 12.10 -Area of Debridement (cm) - Length 0.1 5.5 -Area of Debridement (cm) - Width 0.1 2.2 -Total Square (Area) (cm) 0.01 12.10 -Tunneling No No -Undermining/Tunneling No No -Circular Undermining No No -Wound/Ulcer Outcome Not Healed Not Healed -Ulcer Cleansing Rinsed/ Rinsed/ Irrigated with Irrigated with Saline Saline -Foul Odor after Cleansing No No -Bioengineered Tissue No No -Bleeding Controlled with Pressure Pressure -Treatment Response Procedure Procedure Tolerated Well Tolerated Well -Offloading No No -Debridement - Open, 1st 20sq cm Yes -Debridement - Subq, 1st 20sq cm Yes Pain Scale: 0-10 Numeric Is Patient Pain Free? Yes Yes WC - Nurse 3 - General Ulcer D/C NN Start: 02/19/23 12:20 Freq: Status: Active Protocol: Activity Type Activity Date Activity User E-sign Co-sign Detail Recorded Client Recorded Date Recorded By Document 02/19/23 13:02 DL Desktop 02/19/23 13:04 DL 02/19/23 13:02 Wound Care Center Nurse 3 #2 R Valdez -Ulcer Cleansing Soap and Water -Foul Odor after Cleansing No -Primary Dressing Applied Hysept ($) -Primary Dressing Covered/Secured with Dry Gauze & Roll Gauze, Secured with Tape Right -Tubular Bandage Single Layer -Size of Tubigrip Used Size E -Size E ($) 1 Treatment Response Procedure Tolerated Well Pain Scale: 0-10 Numeric Is Patient Pain Free? Yes WC - Visit Discharge Discharge Condition Stable Ambulatory Status Ambulatory,Cane Transportation Private Auto Accompanied by Notes: pt to be scheduled for surgery with Dr Albaro Rodrigues. Assessment/Plan Assessment/Plan (1) Non-pressure ulcer of right lower extremity with fat layer exposed: CODE(S): L97.912 - Non-pressure chronic ulcer of unspecified part of right lower leg with fat layer exposed PLAN: Patient was examined evaluated. All findings were discussed with the patient. All questions were answered to the patient satisfaction peer Excision debridement down to and including subcutaneous tissue with a #15 blade and pickup without incident. To the right anterior full-thickness laceration. Predebridement measurement was 5.0 x 2.0 x 0.2 cm. Postdebridement measurements 5.5 x 2.2 x 0.3 cm. Patient's wound was dressed with Dakin dry sterile dressing and Tubigrip. Patient will continue home dressing changes. She will follow-up with her primary care tomorrow for medical clearance. Plan will take the patient to the operating room for sterile OR debridement with Masonic's to the right leg with graft. Follow-up in 1 week. (2) Laceration of right lower leg: CODE(S): S81.811A - Laceration without foreign body, right lower leg, initial encounter QUALIFIERS: Encounter type: initial encounter Qualified Code(s): S81.811A - Laceration without foreign body, right lower leg, initial encounter (3) Pain in right leg: CODE(S): M79.604 - Pain in right leg
== END 2023-03-20 23:59 | disposition home or self-care (01) ==
LOC: WC 14:00
PROVIDERS: PCP Family Medicine Geriatric Medicine; Referring Provider Family Medicine Geriatric Medicine; Visit Provider Podiatrist Foot & Ankle Surgery
DX: L97.312 Non-pressure chronic ulcer of right ankle with fat layer exposed (principal); S81.811S Laceration without foreign body, right lower leg, sequela; W22.09XS Striking against other stationary object, sequela; I10 Essential (primary) hypertension; E78.5 Hyperlipidemia, unspecified; E66.9 Obesity, unspecified; Z68.39 Body mass index [BMI] 39.0-39.9, adult; Z79.82 Long term (current) use of aspirin; Z79.899 Other long term (current) drug therapy
CPT/HCPCS: 11042; 87070; 87075; 87077; 87186; 87205; 97597; 99214; G0463

== ENCOUNTER → 2023-02-27 | Outpatient (CLI) | payer MEDICARE, SELFPAY | END | disposition home or self-care (01) | LOC: RAD.FUTURE 17:06 | PROVIDERS: PCP Family Medicine Geriatric Medicine; Visit Provider Family Medicine Geriatric Medicine | DX: Z01.818 Encounter for other preprocedural examination (principal) ==

== ENCOUNTER → 2023-02-27 | Outpatient (CLI) | payer MEDICARE, SELFPAY ==
[2023-02-27 18:02] LABS: Absolute Neutrophil Count 5.6 X10^3/uL (2.0-7.7); Basophil# 0.07 X10^3/uL; Basophil% 0.8 % (0-1); Eosinophil# 0.26 X10^3/uL; Hematocrit 43.7 % (37-47); Hemoglobin 13.7 g/dL (12.0-15.0); Lymphocyte % 24.1 % (19-41); Mean Corp Hgb Conc 31.4 g/dL (32-36); Mean Corpuscular Hgb 29.8 pg (27.0-32.0); Mean Corpuscular Volume 95.2 fL (81-99); Mean Platelet Vol. 9.8 fl (6.2-12.0); Monocyte# 0.66 X10^3/uL; Monocyte% 7.6 % (0-10); NRBC Flagged by Analyzer 0 % (0-5); Neutrophil # 5.56 X10^3/uL (2.7-7.7); Neutrophil % 63.9 % (47-70); Platelet Count 226 K/mm3 (150-450); RBC Distribution Width CV 14.9 % (11.6-14.6); RBC Distribution Width SD 51.9 fl (35.1-43.9); Red Blood Count 4.59 M/mm3 (4.2-5.4); White Blood Count 8.7 K/mm3 (4.4-11.0)
[2023-02-27 18:12] LABS: Partial Thromboplast Time 27.4 Seconds (24.1-36.2)
[2023-02-27 18:30] LABS: ALB/GLOB Ratio 0.7 RATIO (0.9-2.4); AST(SGOT) 11 U/L (15-37); Alanine Aminotransfer ALT/SGPT 18 U/L (13-56); Albumin, Serum 3.2 g/dL (3.2-5.0); Alkaline Phosphatase 75 U/L (45-117); Anion Gap 2 (5-15); BUN 17 mg/dL (7-18); BUN/Creat Ratio 13.4 RATIO (10-20); Calcium,Total 9.2 mg/dL (8.5-10.1); Chloride 107 mmol/L (98-107); Creatinine, Serum 1.27 mg/dL (0.55-1.02); EST Glomerular Filtration Rate 43 mL/min (>60); Est Glom Filt Rate - Afr Amer 52 mL/min (>60); Globulin 4.3 g/dL (2.2-4.2); Glucose 92 mg/dL (74-106); Potassium 3.5 mmol/L (3.5-5.1); Protein, Total 7.5 g/dL (6.4-8.2); Sodium Level 140 mmol/L (136-145)
== END | disposition home or self-care (01) ==
LOC: POLAB3 16:58
PROVIDERS: PCP Family Medicine Geriatric Medicine; Visit Provider Family Medicine Geriatric Medicine
DX: Z01.818 Encounter for other preprocedural examination (principal)
CPT/HCPCS: 36415; 80053; 85025; 85610; 85730

== ENCOUNTER 2023-03-03 07:03 | Day surgery (SDC) | payer MEDICARE, SELFPAY ==
[2023-03-03 07:34] VITALS: BP 169/84; PULSE 87; RESP 14; TEMP 36.6; O2SAT 99; BMI 38.9
[2023-03-03] MEDS: Lactated Ringers 1,000 ML 15 ML IV (07:45)
--- NOTE | 2023-03-03 08:36 | OP.PCM_ITS ---
Problems Associated Problem List Diagnoses (1) Non-pressure ulcer of right lower extremity with fat layer exposed: (2) Pain in right leg: (3) Laceration of right lower leg: Report of Operation Date of Procedure: 03/03/23 Pre-Operative Diagnosis: 1. Nonpressure ulcer with fat exposed, right lower extremity 2. Pain, right leg Post-Operative Diagnosis: 1. Nonpressure ulcer with fat exposed, right lower extremity 2. Pain, right leg Surgery/Procedure Performed:: 1. Surgical skin graft prep, right lower extremity 2. Application of skin graft substitute Surgeon: Art Rodrigues gambling dealer: None Anesthesiologist: Aldo Irwin Special Medications: None Drains: None Fluids Replaced: Per anesthesia Description of Procedure: Indications For Operation: Mrs. Muriel Workman is a 77-year-old female who was admitted to [facility] for surgery debridement and application of skin graft substitute to a nonpressure ulcer/laceration to the right lower extremity that she received at [facility] on January 2023. Patient followed up with a outside provider while in [place] and was placed on oral antibiotics. After returning home from her [place] trip she saw her primary care physician had a IM injection of an tibiotics and was again placed on oral antibiotics at the same time. The patient ulceration has gotten larger and is not healing at this time. She followed that with myself at the wound care center and at time of initial interview it was needed to take the patient to the operating room to perform the above surgery to begin healing of her chronic ulceration/laceration. Due to the nature and chronicity of the full-thickness ulceration I do necessary at this time to take the patient to the operating room to perform under general anesthesia surgical prep and application of skin graft substitute of the full- thickness ulceration of the right lower extremity. The nature of the problem, anticipated procedures, postop recovery/convalences and risk/complications include but not limited to infection, wound healing complications, hypertrophic scarring, numbness, tingling, chronic pain, CRPS, over and under correction, recurrence of deformity, DVT and or PE and the need for further surgery have been discussed in great detail with the patient. All questions have been answered to the patient's satisfaction. There are no guarantees given as to the outcome of the procedure. Description of Procedure: Under mild sedation, the patient was brought into the operating room and placed on the operating table in supine position. Once the patient was under [General / MAC] anesthesia [with Laryngeal Mask Airway / Endotracheal tube], the [Right / Left] lower extremity was blocked using approximately [#] 0.5% Marcaine plain. Next, a well-padded thigh tourniquet was applied to the [right\left] lower extremity. Next, a timeout was then undertaken verifying the correct patient, extremity, visibility of preoperative markings, availability of the equipment. The patient tolerated the procedure and anesthesia well and apparent satisfactory condition and was transported to the PACU for further monitoring prior to discharge [home / back to the floor]. Vital signs stable and vascular status intact to all digits bilateral. Post Operative Plan: Weightbearing: Full weightbearing as tolerated Antibiotics: DVT Prophylaxis: Ambulation Loza: None Dressing: BioSkin, Adaptic, dry sterile dressing, single layer Wade compression bandage to the right lower extremity X-Rays: None needed Pain Medication: Percocet 5/325 Follow-up: Follow-up with Dr. Rodrigues 1 week postop in private office. Grafts/Implants Used: 1. Marta, [employer] 4 cm x 4 cm Admit VTE Documentation VTE Present on Admission: Yes VTE Mechan Device Prophylaxis: SCD's VTE Pharm Prophylaxis ordered?: No Reason prophylaxis not ordered:: Procedure Not Indicated
--- NOTE | 2023-03-03 08:36 | PCM.OPRPT ---
Problems Associated Problem List Diagnoses (1) Non-pressure ulcer of right lower extremity with fat layer exposed: (2) Pain in right leg: (3) Laceration of right lower leg: Report of Operation Date of Procedure: 03/03/23 Pre-Operative Diagnosis: 1. Nonpressure ulcer with fat exposed, right lower extremity 2. Pain, right leg Post-Operative Diagnosis: 1. Nonpressure ulcer with fat exposed, right lower extremity 2. Pain, right leg Surgery/Procedure Performed:: 1. Surgical skin graft prep, right lower extremity 2. Application of skin graft substitute Description of Surgical Findings:: 1. Complete removal of necrotic tissue, right lower extremity 2. After successful debridement there was evidence of probe to deep fascia, right lower extremity 3. Application of amniotic skin graft substitute, right lower extremity Surgeon: Art Rodrigues automobile bumper straightener: Varun Type of Anesthesia: General and Local Anesthesiologist: Aldo Irwin Special Medications: None Specimen's removed: None Drains: None Estimated Blood Loss (mL): 5 mL Fluids Replaced: Per anesthesia Description of Procedure: Indications For Operation: Mrs. Muriel Workman is a 77-year-old female who was admitted to [facility] for surgery debridement and application of skin graft substitute to a nonpressure ulcer/laceration to the right lower extremity that she received at [facility] on January 2023. Patient followed up with a outside provider while in [place] and was placed on oral antibiotics. After returning home from her [place] trip she saw her primary care physician had a IM injection of antibiotics and was again placed on oral antibiotics at the same time. The patient ulceration has gotten larger and is not healing at this time. She followed that with myself at the wound care center and at time of initial interview it was needed to take the patient to the operating room to perform the above surgery to begin healing of her chronic ulceration/laceration. Due to the nature and chronicity of the full-thickness ulceration I do necessary at this time to take the patient to the operating room to perform under general anesthesia surgical prep and application of skin graft substitute of the full-thickness ulceration of the right lower extremity. The nature of the problem, anticipated procedures, postop recovery/convalences and risk/complications include but not limited to infection, wound healing complications, hypertrophic scarring, numbness, tingling, chronic pain, CRPS, over and under correction, recurrence of deformity, DVT and or PE and the need for further surgery have been discussed in great detail with the patient. All questions have been answered to the patient's satisfaction. There are no guarantees given as to the outcome of the procedure. Description of Procedure: Under mild sedation, the patient was brought into the operating room and placed on the operating table in supine position. Once the patient was under general anesthesia with laryngeal mask airway, the right lower extremity was blocked using approximately 20 cc 0.5% Marcaine plain. Next, a well-padded thigh tourniquet was applied to the right lower extremity. Right lower extremity was prepped and draped in normal aseptic manner. Next, a timeout was then undertaken verifying the correct patient, extremity, visibility of preoperative markings, availability of the equipment. Next, a 4 inch Esmarch was used to exsanguinate the right lower extremity, held for 1 minute at 60 degrees. The tourniquet was inflated to 250 mmHg. Next, attention was directed to the full-thickness ulceration the anterior aspect of the right leg. Using the Misonix debriding device, the full-thickness ulceration was debrided down to and including deep fascia and muscle without incident. Predebridement measurements were 5.5 x 2.3 x 0.2 cm. Postdebridement measurement is 5.7 x 2.5 x 0.4 cm. There is evidence of light sanguinous drainage after debridement. The right thigh tourniquet was deflated after 6 minutes and reperfusion to the right lower extremity was noticed. The wound was flushed with copious osvaldo of normal saline. The wound showed no evidence of purulent drainage or sign of infection. The right lower extremity was wiped clean and patted dry. An amniotic skin graft substitute supplied by [employer], BioSkin 4 x 4 centimeters was applied to the full-thickness ulcerations right anterior leg without incident. The ulceration was dressed with Adaptic, half-inch Steri-Strips, dry sterile dressing and a single layer Wade compression bandage was applied to the right lower extremity. The patient tolerated the procedure and anesthesia well and apparent satisfactory condition and was transported to the PACU for further monitoring prior to discharge [home / back to the floor]. Vital signs stable and vascular status intact to all digits bilateral. Post Operative Plan: Weightbearing: Full weightbearing as tolerated Antibiotics: 2 g Ancef through the IV DVT Prophylaxis: Ambulation Loza: None Dressing: BioSkin, Adaptic, dry sterile dressing, single layer Wade compression bandage to the right lower extremity. Leave dressing clean dry and intact do not remove. X-Rays: None needed Pain Medication: Percocet 5/325 Follow-up: Follow-up with Dr. Rodrigues 1 week postop in private office. Grafts/Implants Used: 1. BioSkin, Foley medical 4 cm x 4 cm Complications none Admit VTE Documentation VTE Present on Admission: Yes VTE Mechan Device Prophylaxis: SCD's VTE Pharm Prophylaxis ordered?: No Reason prophylaxis not ordered:: Procedure Not Indicated
[2023-03-03] MEDS: Cefazolin 2 GM in 0.9% Normal Saline (100mL Bag) 100 ML IV (08:57)
[2023-03-03] MEDS: Bupivacaine Mpf 0.5% 30 ML VIAL (09:18)
[2023-03-03 09:38] VITALS: BP 129/55; BP 169/84; PULSE 97; RESP 16; TEMP 36.3; O2SAT 96
[2023-03-03 09:45] VITALS: BP 147/68; BP 169/84; PULSE 104; RESP 16; O2SAT 97
[2023-03-03 09:55] VITALS: BP 153/69; BP 169/84; PULSE 101; RESP 16; O2SAT 100
[2023-03-03 11:04] VITALS: BP 136/50; BP 169/84; PULSE 90; RESP 18; TEMP 36.3
== END 2023-03-03 11:25 | disposition home or self-care (01) ==
LOC: SDC 07:03 → AC 07:05
PROVIDERS: PCP Family Medicine Geriatric Medicine; Referring Provider Podiatrist Foot & Ankle Surgery; Visit Provider Podiatrist Foot & Ankle Surgery
PROC: (CPT 15271; principal; 2023-03-03 08:50)
DX: L97.812 Non-pressure chronic ulcer of other part of right lower leg with fat layer exposed (principal); S81.811S Laceration without foreign body, right lower leg, sequela; X58.XXXS Exposure to other specified factors, sequela; I10 Essential (primary) hypertension; E78.49 Other hyperlipidemia; J45.909 Unspecified asthma, uncomplicated; Z79.82 Long term (current) use of aspirin; Z79.899 Other long term (current) drug therapy
CPT/HCPCS: 15271; 15002; J7120; J2405

== ENCOUNTER → 2023-03-18 | Outpatient (CLI) | payer MEDICARE, SELFPAY | END | disposition home or self-care (01) | LOC: PSN 12:22 | PROVIDERS: PCP Family Medicine Geriatric Medicine; Referring Provider Family Medicine Geriatric Medicine; Visit Provider Family Medicine Geriatric Medicine | DX: R68.83 Chills (without fever) (principal) | CPT/HCPCS: 87635; 87804; 87807 ==

== ENCOUNTER → 2023-04-08 | Outpatient (CLI) | payer MEDICARE, SELFPAY | END | disposition home or self-care (01) | PROVIDERS: PCP Family Medicine Geriatric Medicine; Referring Provider Family Medicine Geriatric Medicine; Visit Provider Family Medicine Geriatric Medicine | DX: R68.83 Chills (without fever) (principal) | CPT/HCPCS: 87635; 87804; 87807; C9803 ==

== ENCOUNTER → 2023-05-13 | Outpatient (CLI) | payer MEDICARE, SELFPAY | END | disposition home or self-care (01) | PROVIDERS: PCP Family Medicine Geriatric Medicine; Referring Provider Family Medicine Geriatric Medicine; Visit Provider Family Medicine Geriatric Medicine | DX: R68.83 Chills (without fever) (principal) | CPT/HCPCS: 87631 ==

== ENCOUNTER → 2023-06-17 | Outpatient (CLI) | payer MEDICARE, SELFPAY ==
[2023-06-17 12:13] LABS: Absolute Lymphocyte Count 1.59 X10^3/uL (0.83-4.51); Absolute Neutrophil Count 4.2 X10^3/uL (2.0-7.7); Basophil# 0.05 X10^3/uL; Basophil% 0.8 % (0-1); Eosinophil# 0.06 X10^3/uL; Eosinophils% 0.9 % (0-5); Hematocrit 41.4 % (37-47); Hemoglobin 13.2 g/dL (12.0-15.0); Lymphocyte # 1.59 X10^3/ul (0.83-4.51); Lymphocyte % 24.8 % (19-41); Mean Corp Hgb Conc 31.9 g/dL (32-36); Mean Corpuscular Hgb 30.2 pg (27.0-32.0); Mean Corpuscular Volume 94.7 fL (81-99); Monocyte# 0.48 X10^3/uL; Monocyte% 7.5 % (0-10); NRBC Flagged by Analyzer 0 % (0-5); Neutrophil # 4.19 X10^3/uL (2.7-7.7); Neutrophil % 65.5 % (47-70); Platelet Count 189 K/mm3 (150-450); RBC Distribution Width CV 14.7 % (11.6-14.6); RBC Distribution Width SD 51.8 fl (35.1-43.9); Red Blood Count 4.37 M/mm3 (4.2-5.4); White Blood Count 6.4 K/mm3 (4.4-11.0)
[2023-06-17 13:39] LABS: AST(SGOT) 18 U/L (15-37); Alanine Aminotransfer ALT/SGPT 22 U/L (13-56); Albumin, Serum 3.2 g/dL (3.2-5.0); Alkaline Phosphatase 63 U/L (45-117); Anion Gap 4 (5-15); BUN 23 mg/dL (7-18); BUN/Creat Ratio 23.8 RATIO (10-20); Bilirubin, Direct 0.13 mg/dL (0.00-0.30); Calcium,Total 9.3 mg/dL (8.5-10.1); Chloride 110 mmol/L (98-107); Cholesterol 243 mg/dL (200); Creatinine, Serum 0.96 mg/dL (0.55-1.02); EST Glomerular Filtration Rate 59 mL/min (>60); Est Glom Filt Rate - Afr Amer 72 mL/min (>60); Glucose 84 mg/dL (74-106); High Density Lipoprotein 92 mg/dL; Potassium 3.9 mmol/L (3.5-5.1); Protein, Total 7.2 g/dL (6.4-8.2); Sodium Level 141 mmol/L (136-145); Thyroid Stim Hormone (TSH) 1.17 uIU/mL (0.358-3.74); Triglycerides 59 mg/dL; Very Low Density Lipoprotein 12 mg/dL (5-40)
== END | disposition home or self-care (01) ==
LOC: LAB 10:57
PROVIDERS: PCP Family Medicine Geriatric Medicine; Referring Provider Internal Medicine Cardiovascular Disease; Visit Provider Internal Medicine Cardiovascular Disease
DX: I10 Essential (primary) hypertension (principal); E78.5 Hyperlipidemia, unspecified
CPT/HCPCS: 36415; 80048; 80061; 80076; 84443; 85025

== ENCOUNTER → 2023-07-03 | Outpatient (CLI) | payer MEDICARE, SELFPAY ==
[2023-07-03 15:43] LABS: Absolute Lymphocyte Count 2.06 X10^3/uL (0.83-4.51); Absolute Neutrophil Count 5.8 X10^3/uL (2.0-7.7); Basophil# 0.05 X10^3/uL; Basophil% 0.6 % (0-1); Eosinophil# 0.07 X10^3/uL; Eosinophils% 0.8 % (0-5); Hematocrit 41.5 % (37-47); Hemoglobin 13.4 g/dL (12.0-15.0); Lymphocyte # 2.06 X10^3/ul (0.83-4.51); Lymphocyte % 23.5 % (19-41); Mean Corp Hgb Conc 32.3 g/dL (32-36); Mean Corpuscular Hgb 29.8 pg (27.0-32.0); Mean Corpuscular Volume 92.4 fL (81-99); Mean Platelet Vol. 10.4 fl (6.2-12.0); Monocyte# 0.72 X10^3/uL; Monocyte% 8.2 % (0-10); NRBC Flagged by Analyzer 0 % (0-5); Neutrophil # 5.83 X10^3/uL (2.7-7.7); Neutrophil % 66.3 % (47-70); Platelet Count 205 K/mm3 (150-450); RBC Distribution Width CV 14.7 % (11.6-14.6); RBC Distribution Width SD 49.7 fl (35.1-43.9); Red Blood Count 4.49 M/mm3 (4.2-5.4); White Blood Count 8.8 K/mm3 (4.4-11.0)
[2023-07-03 15:59] LABS: Vitamin D,25 Hydroxy 28.5 ng/mL
[2023-07-03 16:29] LABS: ALB/GLOB Ratio 0.8 RATIO (0.9-2.4); AST(SGOT) 19 U/L (15-37); Alanine Aminotransfer ALT/SGPT 25 U/L (13-56); Albumin, Serum 3.2 g/dL (3.2-5.0); Alkaline Phosphatase 67 U/L (45-117); Anion Gap 9 (5-15); BUN 24 mg/dL (7-18); BUN/Creat Ratio 23.8 RATIO (10-20); Calcium,Total 9.1 mg/dL (8.5-10.1); Chloride 109 mmol/L (98-107); Creatinine, Serum 1.01 mg/dL (0.55-1.02); EST Glomerular Filtration Rate 56 mL/min (>60); Est Glom Filt Rate - Afr Amer 68 mL/min (>60); Globulin 4.2 g/dL (2.2-4.2); Glucose 79 mg/dL (74-106); Potassium 3.8 mmol/L (3.5-5.1); Protein, Total 7.4 g/dL (6.4-8.2); Sodium Level 141 mmol/L (136-145); Thyroid Stim Hormone (TSH) 0.57 uIU/mL (0.358-3.74)
== END | disposition home or self-care (01) ==
LOC: POLAB3 13:41
PROVIDERS: PCP Family Medicine Geriatric Medicine; Visit Provider Family Medicine Geriatric Medicine
DX: I10 Essential (primary) hypertension (principal); E55.9 Vitamin D deficiency, unspecified
CPT/HCPCS: 36415; 80053; 82306; 84443; 85025

== ENCOUNTER → 2023-09-23 | Outpatient (CLI) | payer MEDICARE, SELFPAY | END | disposition home or self-care (01) | PROVIDERS: PCP Family Medicine Geriatric Medicine; Referring Provider Family Medicine Geriatric Medicine; Visit Provider Family Medicine Geriatric Medicine | DX: R68.83 Chills (without fever) (principal) | CPT/HCPCS: 87631 ==

== ENCOUNTER → 2023-10-13 | Outpatient (CLI) | payer MEDICARE, SELFPAY ==
[2023-10-13 10:53] LABS: Absolute Neutrophil Count 4.7 X10^3/uL (2.0-7.7); Basophil# 0.06 X10^3/uL; Basophil% 0.8 % (0-1); Eosinophil# 0.32 X10^3/uL; Eosinophils% 4.5 % (0-5); Hematocrit 41.1 % (37-47); Hemoglobin 13.1 g/dL (12.0-15.0); Lymphocyte % 20.9 % (19-41); Mean Corp Hgb Conc 31.9 g/dL (32-36); Mean Corpuscular Hgb 30.1 pg (27.0-32.0); Mean Corpuscular Volume 94.5 fL (81-99); Mean Platelet Vol. 9.8 fl (6.2-12.0); Monocyte% 8.4 % (0-10); NRBC Flagged by Analyzer 0 % (0-5); Neutrophil # 4.66 X10^3/uL (2.7-7.7); Platelet Count 198 K/mm3 (150-450); RBC Distribution Width CV 14.8 % (11.6-14.6); RBC Distribution Width SD 51.3 fl (35.1-43.9); Red Blood Count 4.35 M/mm3 (4.2-5.4); White Blood Count 7.2 K/mm3 (4.4-11.0)
[2023-10-13 11:31] LABS: ALB/GLOB Ratio 0.7 RATIO (0.9-2.4); AST(SGOT) 20 U/L (15-37); Alanine Aminotransfer ALT/SGPT 19 U/L (13-56); Albumin, Serum 3.1 g/dL (3.2-5.0); Alkaline Phosphatase 71 U/L (45-117); Anion Gap 4 (5-15); BUN 20 mg/dL (7-18); BUN/Creat Ratio 17.4 RATIO (10-20); Calcium,Total 9.6 mg/dL (8.5-10.1); Chloride 110 mmol/L (98-107); Creatinine, Serum 1.15 mg/dL (0.55-1.02); EST Glomerular Filtration Rate 49 mL/min (>60); Est Glom Filt Rate - Afr Amer 59 mL/min (>60); Globulin 4.3 g/dL (2.2-4.2); Glucose 95 mg/dL (74-106); Potassium 3.8 mmol/L (3.5-5.1); Protein, Total 7.4 g/dL (6.4-8.2); Sodium Level 142 mmol/L (136-145); Thyroid Stim Hormone (TSH) 0.87 uIU/mL (0.358-3.74)
== END | disposition home or self-care (01) ==
LOC: LAB 10:16
PROVIDERS: PCP Family Medicine Geriatric Medicine; Referring Provider Family Medicine Geriatric Medicine; Visit Provider Family Medicine Geriatric Medicine
DX: I10 Essential (primary) hypertension (principal); M79.89 Other specified soft tissue disorders
CPT/HCPCS: 36415; 80053; 84443; 85025

== ENCOUNTER → 2023-11-21 | Outpatient (CLI) | payer MEDICARE, SELFPAY ==
--- NOTE | 2023-11-21 10:28 | BI_ITS ---
MAMMOGRAPHY - BILATERAL SCREENING REASON FOR EXAM: Female, 78 years old. Routine annual screening examination. PERTINENT HISTORY: Non-contributory. Remote left stereotactic breast biopsy. TECHNIQUE: Digital bilateral breast randi (3D mammographic acquisition) in the CC and MLO projections. 2-D mediolateral oblique (MLO) and craniocaudad (CC) views of both breasts were obtained. CAD: Full Field Digital Mammography with Computer Added Detection was performed. COMPARISON: Comparison is made with prior study of September 30, 2022 and May 22, 2021. FINDINGS: Breast Composition: The breasts are almost entirely fatty. There are no dominant masses or suspicious calcifications. No other significant abnormalities are identified. There has been no significant change since the prior study. BI/SCRN MAMM (CAD)W/RANDI BILAT IMPRESSION: Stable bilateral screening mammogram. Yearly follow-up mammogram recommended. (A) ASSESSMENT CATEGORY: BIRADS Category 1: Negative. A letter regarding these results will be sent to the patient by the facility within 30 days. Approximately 10% of breast cancers are not detected by mammography. A normal mammogram should not delay biopsy of a clinically suspicious abnormality. [id number] Electronically Signed: Gary Gregorio MD at 11:19 EDT ,
== END | disposition home or self-care (01) ==
LOC: OPBI 10:26
PROVIDERS: PCP Family Medicine Geriatric Medicine; Referring Provider Obstetrics & Gynecology Gynecology; Visit Provider Obstetrics & Gynecology Gynecology
DX: Z12.31 Encounter for screening mammogram for malignant neoplasm of breast (principal)
CPT/HCPCS: 77063; 77067

== ENCOUNTER → 2023-12-31 | Outpatient (CLI) | payer MEDICARE, SELFPAY ==
[2023-12-31 11:24] LABS: Absolute Lymphocyte Count 1.61 X10^3/uL (0.83-4.51); Absolute Neutrophil Count 4.3 X10^3/uL (2.0-7.7); Basophil# 0.07 X10^3/uL; Basophil% 1.1 % (0-1); Eosinophil# 0.18 X10^3/uL; Eosinophils% 2.7 % (0-5); Hematocrit 38.1 % (37-47); Hemoglobin 12.3 g/dL (12.0-15.0); Lymphocyte # 1.61 X10^3/ul (0.83-4.51); Lymphocyte % 24.2 % (19-41); Mean Corp Hgb Conc 32.3 g/dL (32-36); Mean Corpuscular Hgb 30.3 pg (27.0-32.0); Mean Corpuscular Volume 93.8 fL (81-99); Mean Platelet Vol. 10.1 fl (6.2-12.0); Monocyte# 0.49 X10^3/uL; Monocyte% 7.4 % (0-10); NRBC Flagged by Analyzer 0 % (0-5); Neutrophil # 4.28 X10^3/uL (2.7-7.7); Neutrophil % 64.1 % (47-70); Platelet Count 205 K/mm3 (150-450); RBC Distribution Width CV 15.3 % (11.6-14.6); RBC Distribution Width SD 52.6 fl (35.1-43.9); Red Blood Count 4.06 M/mm3 (4.2-5.4); White Blood Count 6.7 K/mm3 (4.4-11.0)
[2023-12-31 11:59] LABS: ALB/GLOB Ratio 0.8 RATIO (0.9-2.4); AST(SGOT) 14 U/L (15-37); Alanine Aminotransfer ALT/SGPT 19 U/L (13-56); Albumin, Serum 3.2 g/dL (3.2-5.0); Alkaline Phosphatase 69 U/L (45-117); Anion Gap 5 (5-15); BUN 18 mg/dL (7-18); Calcium,Total 9.7 mg/dL (8.5-10.1); Chloride 110 mmol/L (98-107); Creatinine, Serum 1.06 mg/dL (0.55-1.02); EST Glomerular Filtration Rate 53 mL/min (>60); Est Glom Filt Rate - Afr Amer 64 mL/min (>60); Glucose 92 mg/dL (74-106); Potassium 3.7 mmol/L (3.5-5.1); Protein, Total 7.2 g/dL (6.4-8.2); Sodium Level 141 mmol/L (136-145)
[2023-12-31 12:04] LABS: Vitamin D,25 Hydroxy 35.9 ng/mL
== END | disposition home or self-care (01) ==
LOC: POLAB3 10:33
PROVIDERS: PCP Family Medicine Geriatric Medicine; Visit Provider Family Medicine Geriatric Medicine
DX: I10 Essential (primary) hypertension (principal); E55.9 Vitamin D deficiency, unspecified
CPT/HCPCS: 36415; 80053; 82306; 84443; 85025

== ENCOUNTER → 2024-03-15 | Outpatient (CLI) | payer MEDICARE, SELFPAY | END | disposition home or self-care (01) | LOC: POLAB3 12:12 | PROVIDERS: PCP Family Medicine Geriatric Medicine; Visit Provider Family Medicine Geriatric Medicine | DX: R68.83 Chills (without fever) (principal) | CPT/HCPCS: 87631 ==

== ENCOUNTER → 2024-03-19 | Outpatient (CLI) | payer MEDICARE, SELFPAY | END | disposition home or self-care (01) | PROVIDERS: PCP Family Medicine Geriatric Medicine; Referring Provider Obstetrics & Gynecology Gynecology; Visit Provider Obstetrics & Gynecology Gynecology | DX: N81.4 Uterovaginal prolapse, unspecified (principal); N39.41 Urge incontinence | CPT/HCPCS: 76856 ==

== ENCOUNTER → 2024-04-12 | Outpatient (CLI) | payer MEDICARE, SELFPAY | END | disposition home or self-care (01) | PROVIDERS: PCP Family Medicine Geriatric Medicine; Referring Provider Family Medicine Geriatric Medicine; Visit Provider Family Medicine Geriatric Medicine | DX: R68.83 Chills (without fever) (principal) | CPT/HCPCS: 87631 ==

== ENCOUNTER → 2024-06-08 | Outpatient (CLI) | payer MEDICARE, SELFPAY | END | disposition home or self-care (01) | LOC: PSN 12:15 | PROVIDERS: PCP Family Medicine Geriatric Medicine; Referring Provider Family Medicine Geriatric Medicine; Visit Provider Family Medicine Geriatric Medicine | DX: R68.83 Chills (without fever) (principal); Z11.52 Encounter for screening for COVID-19 | CPT/HCPCS: 87631 ==

== ENCOUNTER → 2024-07-07 | Outpatient (CLI) | payer MEDICARE, OTHER, SELFPAY ==
[2024-07-07 11:26] LABS: Absolute Lymphocyte Count 2.44 X10^3/uL (0.83-4.51); Absolute Neutrophil Count 4.4 X10^3/uL (2.0-7.7); Basophil# 0.07 X10^3/uL; Basophil% 0.9 % (0-1); Eosinophil# 0.18 X10^3/uL; Eosinophils% 2.3 % (0-5); Hematocrit 41.5 % (37-47); Hemoglobin 13.4 g/dL (12.0-15.0); Lymphocyte # 2.44 X10^3/ul (0.83-4.51); Lymphocyte % 31.6 % (19-41); Mean Corp Hgb Conc 32.3 g/dL (32-36); Mean Corpuscular Hgb 30.2 pg (27.0-32.0); Mean Corpuscular Volume 93.7 fL (81-99); Mean Platelet Vol. 10.1 fl (6.2-12.0); Monocyte% 7.8 % (0-10); NRBC Flagged by Analyzer 0 % (0-5); Neutrophil # 4.41 X10^3/uL (2.7-7.7); Platelet Count 227 K/mm3 (150-450); RBC Distribution Width CV 14.6 % (11.6-14.6); Red Blood Count 4.43 M/mm3 (4.2-5.4); White Blood Count 7.7 K/mm3 (4.4-11.0)
[2024-07-07 12:38] LABS: ALB/GLOB Ratio 1.1 RATIO (0.9-2.4); AST(SGOT) 18 U/L (<=31); Alanine Aminotransfer ALT/SGPT 13 U/L (<=34); Alkaline Phosphatase 77 U/L (35-104); Anion Gap 11 (5-15); BUN 21 mg/dL (4-19); BUN/Creat Ratio 18.2 RATIO (10-20); Calcium,Total 9.8 mg/dL (7.6-11.0); Carbon Dioxide 27.1 mmol/L (21.0-32.0); Chloride 104 mmol/L (98-108); Cholesterol 234 mg/dL (<=200); Creatinine, Serum 1.15 mg/dL (0.70-1.20); EST Glomerular Filtration Rate 49 (>60); Globulin 3.6 g/dL (2.2-4.2); Glucose 74 mg/dL (70-99); High Density Lipoprotein 83 mg/dL; Low Density Lipoprotein Calc. 136 mg/dL; Potassium 3.7 mmol/L (3.3-5.1); Protein, Total 7.6 g/dL (5.9-8.4); Sodium Level 142 mmol/L (133-145); Total Bilirubin 0.33 mg/dL (0.00-1.30); Triglycerides 73 mg/dL; Very Low Density Lipoprotein 15 mg/dL (5-40); Vitamin D,25 Hydroxy 33.7 ng/mL (30-100); cholesterol:hdl ratio screen 2.82
== END | disposition home or self-care (01) ==
PROVIDERS: PCP Family Medicine Geriatric Medicine; Visit Provider Family Medicine Geriatric Medicine
DX: I10 Essential (primary) hypertension (principal); E55.9 Vitamin D deficiency, unspecified
CPT/HCPCS: 36415; 80053; 80061; 82306; 84443; 85025

== ENCOUNTER → 2024-07-26 | Outpatient (CLI) | payer MEDICARE, OTHER, SELFPAY | END | disposition home or self-care (01) | PROVIDERS: PCP Family Medicine Geriatric Medicine; Referring Provider Family Medicine Geriatric Medicine; Visit Provider Family Medicine Geriatric Medicine | DX: J45.909 Unspecified asthma, uncomplicated (principal) | CPT/HCPCS: 94060; 94726; 94729 ==

== ENCOUNTER 2024-08-20 12:59 | Outpatient (CLI) | payer MEDICARE, OTHER, SELFPAY | END 2024-08-20 23:59 | disposition home or self-care (01) | LOC: LABSPEC 13:04 | PROVIDERS: PCP Family Medicine Geriatric Medicine; Referring Provider Family Medicine Geriatric Medicine; Visit Provider Family Medicine Geriatric Medicine | DX: J98.8 Other specified respiratory disorders (principal); R05.1 Acute cough | CPT/HCPCS: 87631 ==

== ENCOUNTER → 2024-09-29 | Outpatient (CLI) | payer MEDICARE, OTHER, SELFPAY | END | disposition home or self-care (01) | PROVIDERS: PCP Family Medicine Geriatric Medicine; Referring Provider Family Medicine Geriatric Medicine; Visit Provider Family Medicine Geriatric Medicine | DX: J98.8 Other specified respiratory disorders (principal) | CPT/HCPCS: 87631 ==

== ENCOUNTER → 2025-01-05 | Outpatient (CLI) | payer MEDICARE, OTHER, SELFPAY ==
[2025-01-05 11:46] LABS: Hematocrit 38.3 % (37-47); Hemoglobin 12.8 g/dL (12.0-15.0); Immature Granulocytes Count 0.010 X10^3/uL (0.0-0.0); Mean Corp Hgb Conc 33.4 g/dL (32-36); Mean Corpuscular Volume 91.8 fL (81-99); Mean Platelet Vol. 10.2 fl (6.2-12.0); NRBC Flagged by Analyzer 0 % (0-5); Platelet Count 192 K/mm3 (150-450); RBC Distribution Width CV 14.5 % (11.6-14.6); RBC Distribution Width SD 48.9 fl (35.1-43.9); Red Blood Count 4.17 M/mm3 (4.2-5.4); White Blood Count 5.6 K/mm3 (4.4-11.0)
[2025-01-05 12:53] LABS: Vitamin D,25 Hydroxy 31.0 ng/mL (30-100)
[2025-01-05 13:04] LABS: AST(SGOT) 22 U/L (<=31); Alanine Aminotransfer ALT/SGPT 17 U/L (<=34); Albumin, Serum 4.0 g/dL (3.4-4.8); Alkaline Phosphatase 69 U/L (35-104); Anion Gap 11 (5-15); Calcium,Total 9.8 mg/dL (7.6-11.0); Carbon Dioxide 23.7 mmol/L (21.0-32.0); Chloride 108 mmol/L (98-108); Globulin 3.2 g/dL (2.2-4.2); Glucose 81 mg/dL (70-99); Potassium 4.2 mmol/L (3.3-5.1)
[2025-01-05 13:13] LABS: BUN 20 mg/dL (4-19); BUN/Creat Ratio 16.3 RATIO (10-20)
[2025-01-05 19:33] LABS: Xtra Tube Kwok EXTRA TUBE
== END | disposition home or self-care (01) ==
LOC: POLAB3 11:32
PROVIDERS: PCP Family Medicine Geriatric Medicine; Visit Provider Family Medicine Geriatric Medicine
DX: I10 Essential (primary) hypertension (principal); E55.9 Vitamin D deficiency, unspecified
CPT/HCPCS: 36415; 80053; 82306; 84443; 85025